=== PATIENT | female | born 1980 | race Caucasian/White ===

== ENCOUNTER → 2020-05-25 18:07 | Outpatient (CLI) | payer OTHER, SELFPAY ==
[2020-05-25 18:22] LABS: Chloride 102 mmol/L (98-107); Potassium 4.1 mmoL/L (3.5-5.1); Sodium 139 mmol/L (136-145)
[2020-05-25 18:24] LABS: Alanine Aminotransferase 30 U/L (12-78); Aspartate Amino Transferase 30 U/L (14-36); Blood Urea Nitrogen 20 mg/dl (7-17); Estimated Glomerular Filt Rate 79 ml/min (>60); GFR (African American) 95 ML/MIN (>60)
[2020-05-25 18:25] LABS: Albumin Level 4.7 g/dl (3.5-5.0); Albumin/Globulin Ratio 1.6 (1.1-1.8); Alkaline Phosphatase 75 U/L (38-126); Anion Gap 10.1 mEq/L (5-15); Bilirubin,Total 0.4 mg/dl (0.2-1.3); Calcium 10.3 mg/dl (8.4-10.2); Carbon Dioxide 31 mmol/L (22.0-30.0); Chol/HDL Ratio 3.7 (1-3.5); Cholesterol 241 mg/dl (140-200); Glucose 97 mg/dl (74-100); HDL Cholesterol 65 mg/dl (40-60); Total Protein,Serum 7.7 g/dl (6.3-8.2); Triglycerides 211 mg/dl (30-150); VLDL Cholesterol 42 mg/dL (0-40)
[2020-05-25 18:36] LABS: Direct LDL Cholesterol 133.43 mg/dL (100-129)
[2020-05-25 18:42] LABS: T4 (Thyroxine) 8.6 ug/dl (5.53-11.0)
[2020-05-25 18:55] LABS: Thyroid Stimulating Hormone 1.09 uIU/mL (0.465-4.68)
== END ==
PROVIDERS: Visit Provider Family Medicine
DX: M79.7 Fibromyalgia (principal); M54.2 Cervicalgia
CPT/HCPCS: 80053; 80061; 84436; 84443

== ENCOUNTER → 2022-03-06 11:42 | Outpatient (CLI) | payer BC, SELFPAY ==
--- NOTE | 2022-03-06 11:51 | XR_ITS ---
FINAL REPORT CLINICAL HISTORY: back pain FINDINGS: LUMBAR SPINE Three views were obtained. There is no acute fracture. There is no malalignment. There are mild degenerative changes with small osteophytes. There is no soft tissue abnormality. IMPRESSION: Mild degenerative change with no acute bony abnormality. Reviewed, Interpreted and Dictated by Eugenio Oconnor III, MD Transcribed by Melly Beckford Authenticated and [facility]
--- NOTE | 2022-03-06 11:51 | XR_ITS ---
FINAL REPORT CLINICAL HISTORY: ankle pain FINDINGS: RIGHT ANKLE Three views of the right ankle were obtained. There is no acute fracture or dislocation. There are mild degenerative changes.. There is soft tissue swelling.. IMPRESSION: Soft tissue swelling with no acute bony abnormality. Mild degenerative change. Reviewed, Interpreted and Dictated by Eugenio Oconnor III, MD Transcribed by Melly Beckford Authenticated and [facility]
== END ==
PROVIDERS: PCP Family Medicine; Visit Provider Family Medicine
DX: G89.29 Other chronic pain (principal); M54.9 Dorsalgia, unspecified; M54.50 Low back pain, unspecified; M25.571 Pain in right ankle and joints of right foot
CPT/HCPCS: 72100; 73610

== ENCOUNTER → 2023-01-15 23:53 | Outpatient (CLI) | payer BC, SELFPAY ==
[2023-01-15 18:25] LABS: Basophils % 0.7 % (0.1-2.0); Eosinophils # 0.1 K/mm3 (0.0-0.4); Eosinophils % 0.8 % (0.1-12.0); Hematocrit 41.4 % (37.0-47.0); Hemoglobin 13.4 g/dL (12.2-16.2); Lymphocytes % 33.3 % (10-50); Mean Corpuscular HGB Conc 32.3 g/dL (31.8-35.4); Mean Corpuscular Hemoglobin 24.4 pg (27.0-31.2); Mean Corpuscular Volume 75.5 fl (81-99); Mean Platelet Volume 7.7 fl (7.4-10.4); Monocytes # 0.3 K/mm3 (0.1-1.0); Monocytes % 5.2 % (1.7-9.3); Neutrophils # 3.6 K/mm3 (1.8-7.8); Platelet Count 312 K/mm3 (142-424); Red Blood Count 5.48 M/mm3 (4.20-5.40); Red Cell Distribution Width 15.8 % (11.5-17.5)
[2023-01-15 18:53] LABS: Alanine Aminotransferase 33 U/L (12-78); Albumin Level 4.5 g/dl (3.5-5.0); Albumin/Globulin Ratio 1.6 (1.1-1.8); Alkaline Phosphatase 76 U/L (38-126); Anion Gap 13.1 mEq/L (5-15); Aspartate Amino Transferase 30 U/L (14-36); Blood Urea Nitrogen 18 mg/dl (7-17); Calcium 9.6 mg/dl (8.4-10.2); Carbon Dioxide 30 mmol/L (22.0-30.0); Chloride 101 mmol/L (98-107); Chol/HDL Ratio 3.9 (1-3.5); Cholesterol 243 mg/dl (140-200); Estimated Glomerular Filt Rate 60 ml/min (>60); GFR (African American) 73 ML/MIN (>60); Globulin 2.9 g/dL (1.3-3.2); Glucose 140 mg/dl (74-100); HDL Cholesterol 62 mg/dl (40-60); Potassium 4.1 mmoL/L (3.5-5.1); Sodium 140 mmol/L (136-145); Total Protein,Serum 7.4 g/dl (6.3-8.2); Triglycerides 255 mg/dl (30-150); VLDL Cholesterol 51 mg/dL (0-40)
[2023-01-15 18:56] LABS: Bilirubin,Total < 0.1 mg/dl (0.2-1.3)
[2023-01-15 19:02] LABS: Hemoglobin A1C 5.7 % (4.0-6.0)
[2023-01-15 19:04] LABS: Direct LDL Cholesterol 127.88 mg/dL (100-129)
[2023-01-15 19:24] LABS: Thyroid Stimulating Hormone 1.47 uIU/mL (0.465-4.68)
== END ==
PROVIDERS: PCP Family Medicine; Visit Provider Family Medicine
DX: E66.9 Obesity, unspecified (principal); Z68.42 Body mass index [BMI] 45.0-49.9, adult
CPT/HCPCS: 80053; 80061; 83036; 84443; 85025

== ENCOUNTER → 2023-04-30 23:44 | Outpatient (CLI) | payer BC, SELFPAY ==
[2023-04-30 18:12] LABS: Coronavirus 19, PCR Not Detected (NotDetected); Influenza A, PCR Not Detected (NotDetected); Influenza B, PCR Not Detected (NotDetected)
== END ==
LOC: LAB.DROPOF 23:44
PROVIDERS: PCP Family Medicine; Visit Provider Nurse Practitioner
DX: J06.9 Acute upper respiratory infection, unspecified (principal); R09.89 Other specified symptoms and signs involving the circulatory and respiratory systems; R05.9 Cough, unspecified; J02.9 Acute pharyngitis, unspecified
CPT/HCPCS: 87636

== ENCOUNTER 2023-07-17 20:57 | Emergency (ER) | payer BC, SELFPAY ==
[2023-07-17 21:12] VITALS: BP 139/92; PULSE 92; RESP 18; TEMP 36.8; O2SAT 96; BMI 27.0
--- NOTE | 2023-07-17 21:30 | ED_ITS ---
Discharge Plan Disposition Patient Disposition: Home, Self-Care Prescriptions Prescriptions: New Eliquis DVT-PE Treat 30D Start 5 mg (74 tabs) tablets,dose pack 5 mg PO BID Qty: 74 0RF Eliquis 5 mg tablet 5 mg PO BID Qty: 60 2RF No Action tizanidine 4 mg tablet 4 mg PO Q8H PRN (Reason: muscle spasticity) Qty: 60 5RF cefdinir 300 mg capsule 300 mg PO BID Qty: 20 0RF [id number]-npmyyqxpf-NS [Bromfed DM] 2-30-10 mg/5 mL syrup 5 ml PO Q4-6H PRN (Reason: cold symptoms) Qty: 240 0RF fluticasone propionate 50 mcg/actuation spray,suspension 1 spray intranasal DAILY Qty: 16 2RF Rx Instructions: administer into each nostril albuterol sulfate 90 mcg/actuation HFA aerosol inhaler 2 puff inhalation Q4-6H PRN (Reason: shortness of breath or wheezing) Qty: 8.5 0RF fluoxetine [Prozac] 40 mg capsule 40 mg PO DAILY Qty: 90 3RF buspirone 15 mg tablet 15 mg PO TID PRN (Reason: anxiety) Qty: 90 3RF naproxen [Naprosyn] 500 mg tablet 500 mg PO BID PRN (Reason: pain) Qty: 60 2RF Wegovy 1 mg/0.5 mL pen injector 1 mg SQ WEEKLY Qty: 2 1RF Referrals Follow up/Referrals: Greg Cronin MD [Primary Care Provider] - See instructions Activity Restrictions/Add. Instructions Additional Instructions/Restrictions: Take 2 pills (10 mg) of Eliquis 2 times a day for 7 days. Take 1 pill (5 mg) twice daily for the remainder of the 3 months. Follow-up with your surgeon and your family doctor regarding this visit to the emergency department. If you have any worsening of your condition or any other concerning signs or symptoms, return to the emergency department or your primary care doctor for further evaluation. Clinical Impressions Clinical Impression: Acute deep vein thrombosis (DVT) of right upper extremity Discharge ED Provider: Osvaldo Gay General Adult [facility] General Chief complaint: Extremity Problem,Nontraumatic Stated complaint: Right arm swollen from IV put in for surgery Time Seen by Provider: 07/17/23 21:00 Mode of Arrival: Ambulatory Source of Information: Patient Limitations: No Limitations Description of Symptoms (Recalled from ER Triage Doc. by RN): Patient states she had surgery Thursday at [facility], they removed the IV on Thursday and she started noticing swelling, brusing and tenderness yesterday History of Present Illness HPI narrative: 43-year-old female with recent bariatric surgery presenting with right upper extremity swelling. Patient states that she just got to the hospital for this bariatric surgery and was receiving multiple medications in her right upper extremity veins that were causing irritation. Yesterday she started having swelling in her arm. She contacted her surgeon and they told her to put it above her head and put ice packs on it. Has been getting worse despite all of this. Came to the emergency department for further evaluation. Related Data Previous Rx's Medication Instructions Recorded tizanidine 4 mg tablet 4 mg PO Q8H PRN muscle spasticity 01/15/23 #60 tabs buspirone 15 mg tablet 15 mg PO TID PRN anxiety #90 tabs 01/16/23 fluoxetine 40 mg capsule (Prozac) 40 mg PO DAILY #90 caps 01/16/23 naproxen 500 mg tablet (Naprosyn) 500 mg PO BID PRN pain #60 tabs 01/16/23 albuterol sulfate 90 mcg/actuation 2 puff inhalation Q4-6H PRN 03/18/23 aerosol inhaler shortness of breath or wheezing #8.5 grams fktknbfbnckleqv-dmyrtenxigtkwys-YI 5 ml PO Q4-6H PRN cold symptoms 04/30/23 2 mg-30 mg-10 mg/5 mL oral syrup #240 mL (Bromfed DM) cefdinir 300 mg capsule 300 mg PO BID #20 caps 04/30/23 fluticasone propionate 50 1 spray intranasal DAILY #16 grams 04/30/23 mcg/actuation nasal spray,suspension semaglutide (weight loss) 1 mg/0.5 1 mg (0.5 mL) SQ WEEKLY #2 mL 06/02/23 mL subcutaneous pen injector (Wegovy) apixaban 5 mg (74 tabs) tablets in 5 mg PO BID #74 tabs 07/17/23 a dose pack (Eliquis DVT-PE Treat 30D Start) apixaban 5 mg tablet (Eliquis) 5 mg PO BID #60 tabs 07/17/23 Allergies Allergy/AdvReac Type Severity Reaction Status Date / Time acetaminophen [From Percocet] AdvReac Unknown Verified 05/28/23 09:08 oxycodone [From Percocet] AdvReac Unknown Verified 05/28/23 09:08 [facility] Disclaimer: The information contained in this section may have been updated after the patient was seen, as this information can be updated by other users. Social History Smoking Status: Never smoker alcohol intake: never substance use type: denies use current occupational status: disabled Travel in the last 8 weeks: None ROS Obtained: Yes All systems reviewed & no additional complaints except as documented Physical Exam General General appearance: alert and in no apparent distress Head Head exam: atraumatic and normocephalic Eye Eye exam: Present normal appearance, PERRL and EOMI ENT ENT exam: Present mucous membranes moist Neck Neck exam: Present normal inspection, full ROM and trachea midline Respiratory Respiratory exam: Absent respiratory distress, wheezes, stridor, accessory muscle use or prolonged expiratory phase Cardiovascular Cardiovascular exam: Present normal rhythm Abdominal Exam Abdominal exam: Present soft; Absent distention, tenderness, guarding, rebound or rigidity Extremities Exam Extremities exam: Present other (Tenderness and palpable cord right upper extremity and anatomic location of basilic vein); Absent edema Neurological Exam Neurological exam: Present alert, oriented X3, CN II-XII intact and normal gait; Absent motor sensory deficit Skin Skin exam: Present warm and dry; Absent diaphoresis or erythema Medical Decision Making Medical Records Medical records reviewed: Yes I reviewed the patient's medical records. [place] Inquiry Pt receiving controlled substance: No [place] was queried for this patient: No Vital Signs: 07/17/23 21:12 07/17/23 21:37 Temperature 98.3 F 98.3 F Temperature Source Oral Oral Pulse Rate 87 Pulse Rate [Left Radial] 92 H Respiratory Rate 18 18 Blood Pressure 138/87 Blood Pressure [Right Arm] 139/92 H Blood Pressure Mean [Right Arm] 107 02 Sat by Pulse Oximetry 96 Oxygen Delivery Method Room Air Orders (Tests/Meds): ED MEDICATIONS Discontinued Medications Generic Name Dose Route Start Last Admin Trade Name Freq PRN Reason Stop Dose Admin Enoxaparin Sodium 95 mg 07/17/23 21:30 07/17/23 21:34 Enoxaparin 100mg/Ml Syringe 1.5 mg/kg (95 mg) 07/17/23 21:31 95 mg SQ Administration ONCE ONE ORDERS Category Date Time Status POCUS Point of Care (ER Only) Stat Exams 07/17/23 21:11 Completed Medical Decision Narrative: 43-year-old female with recent bariatric surgery presenting with right upper extremity swelling. Patient states that she just got to the hospital for this bariatric surgery and was receiving multiple medications in her right upper extremity veins that were causing irritation. Yesterday she started having swelling in her arm. She contacted her surgeon and they told her to put it above her head and put ice packs on it. Has been getting worse despite all of this. Came to the emergency department for further evaluation. History obtaine d with patient. On physical exam, patient has palpable cord, tenderness, erythema, along basilic vein. Differential includes cellulitis, phlebitis, DVT, among others. Bedside ultrasound performed, patient does have DVT of the right upper extremity extending from proximal ulnar vein into basilic vein. Patient nontachycardic, saturating appropriately on room air. Patient was given initial dose of Lovenox 1.5 Mg per KG. Discharged with Eliquis. Because patient at baseline without signs or symptoms of clinical decompensation, deemed appropriate for discharge. Results were relayed to patient who voiced understanding and were agreeable to outpatient management and follow up. At the time of discharge the patient was hemodynamically stable, tolerating PO, and mobilizing appropriately. Procedures Limited Ultrasound Indication:: Limited DVT ultrasound Indication: Limited compression ultrasonography of the right upper extremity was performed to evaluate for non-compressibility of the deep veins in the patient. The ultrasound was performed with the following indications, as noted in the H&P: Right upper extremity swelling Identified structures: RIGHT or LEFT or BILATERAL ulnar vein, radial vein, cephalic vein, basilic vein, axillary vein. Findings: Upper extremity: Right UV noncompressible, hyperechoic Right RV: Good compressibility Right Cephalic vein: Good compressibility Right Basilic vein: Noncompressible, hyperechoic Right Axillary vein: Good compressibility Impression: Right upper extremity DVT Images were saved to permanent archive The study was technically adequate CPT: 99326-90-MB 25896-26-MF 24899-56 (complete bilateral study) This study was performed by me, and I personally interpreted all images/videos. Based on my clinical judgement, these images were adequate and did not necessitate further imaging. Critical Care Critical Care Time Critical Care Time: No
[2023-07-17] MEDS: ENOXAPARIN 100MG/ML SYRINGE 95 MG SQ (21:34)
[2023-07-17 21:37] VITALS: BP 138/87; PULSE 87; RESP 18; TEMP 36.8; O2SAT 96
== END 2023-07-17 21:37 | disposition home or self-care (01) ==
PROVIDERS: Emergency Provider Emergency Medicine; PCP Family Medicine
DX: I82.621 Acute embolism and thrombosis of deep veins of right upper extremity (principal)
CPT/HCPCS: 99284

== ENCOUNTER 2024-09-30 09:34 | Outpatient (CLI) | payer BC, SELFPAY ==
[2024-09-30 19:50] LABS: Chol/HDL Ratio 2.2 (1-3.5); Cholesterol 165 mg/dl (140-200); HDL Cholesterol 75 mg/dl (40-60); Triglycerides 71 mg/dl (30-150); VLDL Cholesterol 14 mg/dL (0-40)
[2024-09-30 20:00] LABS: Direct LDL Cholesterol 66.19 mg/dL (100-129)
--- OUTSIDE RECORDS SUMMARY | 2024-10-03 09:36 | XMS_ITS | Data Portability ---
Author Organization [facility] [place] [facility] ADMIN Address [address] [place] [id number] Care Team Providers Care Mental Health Director Name Role Phone MIRTHA VAUGHN Primary Care Provider Assessment Encounter Date Assessment Date Assessment LastModified by Organization Details LastModified Time 02/05/2024 02/05/2024 A total of 20 minutes was spent with the pt today. Recommendations: 1. Increase calories to 1000 kcal per day and gradually increase to 1200 2. Increase protein to 85+ grams per day 3. Increase fluid intake to 64+ fluid oz per day 4. Add in strength training exercises 3x/week to help increase muscle mass 5. Choose more whole food protein sources vs. drinking 2-3 shakes per day 6. Aim for 1 protein shake per day, 2 meals (protein/veggie/fi aicha), and 3-4 protein focused snacks in between 7. Download Compiere mikal to start tracking meals 8. F/U with RD in 3 months Pt doing well overall. Addressed concerns today. Pt was reassured at today's visit. Pt verbally agreed to recommendations and goals. Denied further questions/concerns . RDN will monitor weight loss, labs, meds, and lifestyle modifications. Will f/up as scheduled or PRN. [email or web address] Not available 02/05/2024 10:57:29 Plan of Treatment Reminders Order Date Submit Date Provider Last Modified By Organization Details Last Modified Time Details Appointments None recorde d. Lab vitamin D, 25-hydr oxy, total, serum 2023 024 [place], [address], [address], [place], [address], 4 18:36:17 prealbu min, serum 2023 024 [place] [facility], [address], [address], [place], [address], 4 18:36:19 thiamin e, QN, blood 2023 024 [place] [facility], [address], [address], [place], [address], 4 18:36:17 methylm alonate , QN, serum or plasma 2023 024 [place] [facility], [address], [address], [place], [address], 4 18:36:18 copper, serum or plasma 2023 024 [place] [facility], [address], [address], [place], [address], 4 18:36:18 dennisiu mvaishnavi ative, blood 2023 024 [place] [facility], [address], [address], [place], [address], 4 18:36:20 zinc, serum or plasma 2023 024 [place], [address], [address], [place], [address], 4 18:36:19 CBC w/ auto diff 2023 024 [place], [address], [address], [place], [address], 4 18:36:14 CMP, serum or plasma 2023 024 [place] [facility], [address], [address], [place], [address], 4 18:36:15 iron + TIBC + ferriti n, serum 2023 024 [place] [facility], [address], [address], [place], [address], 4 18:36:13 folate, serum 2023 024 [place] [facility], [address], [address], [place], [address], 4 18:36:16 vitamin E, serum 2023 024 [place] [facility], [address], [address], [place], [address], 4 18:36:15 vitamin A (retino l), serum 2023 024 [facility], [address], [address], [place], [address], 4 18:36:16 TSH + free T4, serum 2023 024 [place], [address], [address], [place], [address], 4 18:36:14 CBC w/ auto diff 2023 024 [facility] (Registration), [address], [place], [address], 4 17:58:49 prothro mbin (factor II) [id number] mutatio n, blood 2023 024 [email or web address] [facility] (Registration), [address], [place], [address], 4 11:36:09 factor VIII activit y, plasma 2023 024 [email or web address] [facility] (Registration), [address] , [place], [address], 4 08:57:56 protein S activit y, plasma 2023 024 [email or web address] 6 [facility] (Registration), [address] , [place], [address], 4 08:57:56 CMP, serum or plasma 2023 024 [facility] (Registration), [address] , [place], [address], 4 18:30:47 CBC w/ auto diff 2023 024 [place] [facility], [address], [address], [place], [address], 4 16:25:11 CMP, serum or plasma 2023 024 [place], [address], [address], [place], [address], 4 16:51:28 prealbu min, serum 2023 024 [place] [facility], [address], [address], [place], [address], 4 04:37:26 thiamin e, QN, blood 2023 024 [place], [address], [address], [place], [address], 4 04:37:24 iron + TIBC + ferriti n, serum 2023 024 [place], [address], [address], [place], [address], 4 04:37:17 folate, serum 2023 024 [place], [address], [address], [place], [address], 4 04:37:22 vitamin D, 25-hydr oxy, total, serum 2023 024 [place], [address], [address], [place], [address], 4 04:37:24 vitamin E, serum 2023 024 [place] [facility], [address], [address], [place], [address], 4 04:37:21 vitamin A (retino l), serum 2023 024 [place], [address], [address], [place], [address], 4 04:37:23 TSH + free T4, serum 2023 024 [place] [facility], [address], [address], [place], [address], 4 04:37:18 methylm alonate , QN, serum or plasma 2023 024 [facility], [address], [address], [place], [address], 4 04:37:25 magnesi um, blood 2023 024 [email or web address] [facility] (Registration), [address], [place], [address], 4 13:33:41 phospho edmund, serum or plasma 2023 024 [email or web address] [facility] (Registration), [address], [place], [address], 4 13:33:42 Referral gastroe nterolo gist referra l 2023 024 [email or web address] [facility], [address], [address], [place], [address], 4 09:15:52 Procedures None recorde d. Surgeries None recorde d. Imaging None recorde d. Medication Orders None recorde d. Patient TargetsNo targets recorded. Patient InstructionsNo instructions recorded. 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 4 Not Available [facility] ([facility]) [address], [place], [address], 08/12/2023 16:25:11 08/12/19 24 08/12/2023 CBC AUTO W DIFF HGB 12.0 gm/dL 12.5-1 6.0 low Not Available [facility] ([facility]) [address], [place], [address], 08/12/2023 16:25:11 08/12/19 24 08/12/2023 CBC AUTO W DIFF HCT 37.4 % 37.0-4 7.0 Not Available [facility] ([facility]) [address], [place], [address], 08/12/2023 16:25:11 08/12/19 24 08/12/2023 CBC AUTO W DIFF MCV 78.7 fL 78-100 Not Available [facility] ([facility]) [address] , [place], [address], 08/12/2023 16:25:11 08/12/19 24 08/12/2023 CBC AUTO W DIFF MCH 25.3 pg 27-31 low Not Available [facility] ([facility]) [address] , [place], [address], 08/12/2023 16:25:11 08/12/19 24 08/12/2023 CBC AUTO W DIFF MCHC 32.1 g/dL 32-36 Not Available [facility] ([facility]) [address] , [place], [address], 08/12/2023 16:25:11 08/12/19 24 08/12/2023 CBC AUTO W DIFF RDW 15.9 % 11.5-1 4.0 high Not Available [facility] ([facility]) [address] , [place], [address], 08/12/2023 16:25:11 08/12/19 24 08/12/2023 CBC AUTO W DIFF platelet count 201 K/uL 150-45 0 Not Available [facility] ([facility]) [address] , [place], [address], 08/12/2023 16:25:11 08/12/19 24 08/12/2023 CBC AUTO W DIFF MPV 10.1 fL 6-9.5 high Not Available [facility] ([facility]) [address] , [place], [address], 08/12/2023 16:25:11 08/12/19 24 08/12/2023 CBC AUTO W DIFF neutrophil% 44.7 % 43-65 Not Available [facility] ([facility]) [address] [place], [address], 08/12/2023 16:25:11 08/12/19 24 08/12/2023 CBC AUTO W DIFF lymphocyte% 46.5 % 20.5-4 5.5 high Not Available [facility] ([facility]) [address] [place], [address], 08/12/2023 16:25:11 08/12/19 24 08/12/2023 CBC AUTO W DIFF monocyte% 6.5 % 5.5-11 .7 Not Available [facility] ([facility]) [address] [place], [address], 08/12/2023 16:25:11 08/12/19 24 08/12/2023 CBC AUTO W DIFF eosinophil% 1.7 % 0.9-2. 9 Not Available [facility] ([facility]) [address] [place], [address], 08/12/2023 16:25:11 08/12/19 24 08/12/2023 CBC AUTO W DIFF basophil% 0.4 % 0.2-1. 0 Not Available [facility] ([facility]) [address] [place], [address], 08/12/2023 16:25:11 08/12/19 24 08/12/2023 CBC AUTO W DIFF immature granulocytes % 0.2 % 0.0-0. 8 Not Available [facility] ([facility]) [address] [place], [address], 08/12/2023 16:25:11 08/12/19 24 08/12/2023 CBC AUTO W DIFF nucleated red blood cells % 0.0 % Not Available [facility] ([facility]) [address] [place], [address], 08/12/2023 16:25:11 08/12/19 24 08/12/2023 CBC AUTO W DIFF neutrophil# 2.1 K/uL 2.2-4. 8 low Not Available [facility] ([facility]) [address], [place], [address], 08/12/2023 16:25:11 08/12/19 24 08/12/2023 CBC AUTO W DIFF lymphocyte# 2.2 cell/ mcL 1.3-2. 9 Not Available [facility] ([facility]) [address], [place], [address], 08/12/2023 16:25:11 08/12/19 24 08/12/2023 CBC AUTO W DIFF monocyte# 0.3 cell/ mcL 0.3-0. 8 Not Available [facility] ([facility]) [address] [facility], [place], [address], 08/12/2023 16:25:11 08/12/19 24 08/12/2023 CBC AUTO W DIFF eosinophil# 0.1 cell/ mcL 0-0.2 Not Available [facility] ([facility]) [address] [facility], [place], [address], 08/12/2023 16:25:11 08/12/19 24 08/12/2023 CBC AUTO W DIFF basophil# 0.0 cell/ mcL 0.0-1. 0 Not Available [facility] ([facility]) [address] [place], [address], 08/12/2023 16:25:11 08/12/19 24 08/12/2023 CBC AUTO W DIFF immature gramulocytes # 0.01 K/uL Not Available [facility] ([facility]) [address] [place], [address], 08/12/2023 16:25:11 08/12/19 24 08/12/2023 CBC AUTO W DIFF nucleated red blood cells # 0.00 K/uL Not Available [facility] ([facility]) [address], [place], [address], 08/12/2023 16:25:11 08/12/19 24 08/12/2023 CBC AUTO W DIFF manual differential NO Not Available [facility] ([facility]) [address], [place], [address], 08/12/2023 16:25:11 08/12/19 24 08/12/2023 PT (PROT HROMB IN TIME) W INR prothrombin time 10.1 secon ds 9.3-11 .4 Not Available [facility] ([facility]) [address] , [place], [address], 08/12/2023 16:48:05 08/12/19 24 08/12/2023 PT (PROT HROMB IN TIME) W INR INR 1.0 ratio 0.97-1 .05 INR is inten ded to be used ONLY for patie nts on stabl e oral antic oagul ant thera py. Thera peuti c Range s: 2.0-3 .0 Usual Thera peuti c Range 2.5-3 .5 For patie nts with histo ry of Multi ple Deep Vein Throm bus or Mecha nical Heart Valve s Not Available [facility] ([facility]) [address] , [place], [address], 08/12/2023 16:48:05 08/12/19 24 08/12/2023 COMP METAB OLIC PANEL sodium 145 mmol/ L 136-14 5 Not Available [facility] ([facility]) [address] , [place], [address], 08/12/2023 16:51:27 08/12/19 24 08/12/2023 COMP METAB OLIC PANEL potassium 3.6 mmol/ L 3.6-5. 0 Not Available [facility] ([facility]) [address] , [place], [address], 08/12/2023 16:51:27 08/12/19 24 08/12/2023 COMP METAB OLIC PANEL chloride 107 mmol/ L 98-107 Not Available [facility] ([facility]) [address], [place], [address], 08/12/2023 16:51:27 08/12/19 24 08/12/2023 COMP METAB OLIC PANEL carbon dioxide 29.2 mmol/ L 21.0-3 2.0 Not Available [facility] ([facility]) [address], [place], [address], 08/12/2023 16:51:27 08/12/19 24 08/12/2023 COMP METAB OLIC PANEL anion gap 12.4 Not Available [facility] ([facility]) [address] , [place], [address], 08/12/2023 16:51:27 08/12/19 24 08/12/2023 COMP METAB OLIC PANEL glucose 85 mg/dL 70-120 Not Available [facility] ([facility]) [address] , [place], [address], 08/12/2023 16:51:27 08/12/19 24 08/12/2023 COMP METAB OLIC PANEL BUN 16 mg/dL 7-18 Not Available [facility] ([facility]) [address] , [place], [address], 08/12/2023 16:51:27 08/12/19 24 08/12/2023 COMP METAB OLIC PANEL creatinine 0.8 mg/dL 0.6-1. 3 Not Available [facility] ([facility]) [address] [place], [address], 08/12/2023 16:51:27 08/12/19 24 08/12/2023 COMP METAB OLIC PANEL glomerular filtration rate >60 mlper min 60- Not Available [facility] ([facility]) [address] [place], [address], 08/12/2023 16:51:27 08/12/19 24 08/12/2023 COMP METAB OLIC PANEL total protein 6.7 g/dL 6.4-8. 2 Not Available [facility] ([facility]) [address] , [place], [address], 08/12/2023 16:51:27 08/12/19 24 08/12/2023 COMP METAB OLIC PANEL albumin 4.1 g/dL 3.4-5. 0 Not Available [facility] ([facility]) [address], [place], [address], 08/12/2023 16:51:27 08/12/19 24 08/12/2023 COMP METAB OLIC PANEL globulin 2.6 Not Available [facility] ([facility]) [address], [place], [address], 08/12/2023 16:51:27 08/12/19 24 08/12/2023 COMP METAB OLIC PANEL alb/glob ratio 1.6 0.7-2 Not Available [facility] ([facility]) [address], [place], [address], 08/12/2023 16:51:27 08/12/19 24 08/12/2023 COMP METAB OLIC PANEL calcium 9.1 mg/dL 8.5-10 .5 Not Available [facility] ([facility]) [address] , [place], [address], 08/12/2023 16:51:27 08/12/19 24 08/12/2023 COMP METAB OLIC PANEL bilirubin total 0.30 mg/dL 0.10-1 .00 Not Available [facility] ([facility]) [address], [place], [address], 08/12/2023 16:51:27 08/12/19 24 08/12/2023 COMP METAB OLIC PANEL AST (SGOT) 23 U/L 0-37 Not Available [facility] ([facility]) [address], [place], [address], 08/12/2023 16:51:27 08/12/19 24 08/12/2023 COMP METAB OLIC PANEL ALT (SGPT) 63 U/L 0-65 Not Available [facility] ([facility]) [address], [place], [address], 08/12/2023 16:51:27 08/12/19 24 08/12/2023 COMP METAB OLIC PANEL alk phosphatase 78 U/L 46-116 Not Available [facility] ([facility]) [address] [facility], [place], [address], 08/12/2023 16:51:27 08/12/19 24 08/14/2023 FACTO R VII (7) ACTIV ITY factor VII (7) activity 148 % 51-186 Perfo rmed at: [facility] [address] [place] [address] Lab Direc tor: Fabiola contreras MD, Phone : [phone] Not Available [facility] ([facility]) [address] [place], [address], 08/14/2023 06:13:35 08/12/19 24 08/14/2023 PROTE IN C FUNTI ONAL protein C functional 151 % 73-180 Perfo rmed at: [facility] [address] [place] [address] Lab Direc tor: Fabiola contreras MD, Phone : [phone] Not Available [facility] ([facility]) [address] [place], [address], 08/14/2023 13:12:25 08/12/19 24 08/14/2023 ANTIT HROMB IN 3 ACTIV ITY antithrombin activity 131 % 75-135 Direc t Xa inhib itor antic oagul ants such as rivar oxaba n, apixa ban and edoxa ban will lead to spuri ously eleva ellen antit hromb in activ ity level s possi robert maski ng a defic iency . Not Available [facility] ([facility]) [address], [place], [address], 08/14/2023 15:11:29 08/12/19 24 08/14/2023 ANTIT HROMB IN 3 ACTIV ITY antithrobmin antigen 112 % 72-124 This test was devel oped and its perfo rmanc e lindsay cteri stics deter mined by [facility]. It has not been clear ed or appro zane by the Food and Drug Admin istra tion. Perfo rmed at: - [facility] [address] [place] [address] [facility] , [place] [address] Lab Direc tor: Fabiola contreras MD, Phone : [phone] Not Available [facility] ([facility]) [address] [facility], [place], [address], 08/14/2023 15:11:29 08/12/19 24 08/14/2023 PROTE IN S-FUN CTION AL(AC TIVIT Y) protein S, functional 45 % 63-140 low A defic iency of prote in S (PS), eithe r conge nital or acqui red, incre ases the risk of throm boemb olism . PS activ ity level s may be false ly low in indiv idual s with APCR/ Facto r V Leide n. Consi nash perfo rming free prote in S antig en in those with APCR/ Facto r V Leide n befor e makin g a diagn osis of prote in S defic iency . Acqui red PS defic iency is more commo n than conge nital defic iency . PS value s decre ase with juan l pregn jovanna, and are also depen dent on age, sex and hormo ne statu s. PS value s tend to be lower in a young er age group and lower in women than in men. Level s may be decre ased in pre-m enopa usal women on oral contr acept shun agent s. Acqui red defic iency can occur as a resul t of vitam in K defic iency or antag onism , sever e hepat ic disor ders, (hepa titis , cirrh osis, etc.) , nephr otic syndr ome, infla mmato ry bowel disea se, certa in chemo thera peuti c agent s, L-asp aragi nse thera py, sepsi s, disse minat ed intra vascu lar coagu latio n (DIC) and acute throm bosis . Level s may be decre ased in patie nts with polyc ythem ia vera, sickl e cell disea se and essen tial throm bocyt hemia . Repea t evalu ation on a new plasm a sampl e to confi rm or refut e this resul t shoul d be consi dered , after rulin g out acqui red cause s, depen mellissa on the clini abena scena lucas. Perfo rmed at: [facility] [place] [address] [facility] , [place] [address] Lab Direc tor: Fabiola contreras MD, Phone : [phone] Not Available [facility] ([facility]) [address] , [place], [address], 08/14/2023 15:11:31 08/12/19 24 08/13/2023 FE+TI BC+FE R iron bind.cap.(TI BC) 384 ug/dL 250-45 0 Not Available [facility] ([facility]) [address] [facility], [place], [address], 08/18/2023 04:37:17 08/12/19 24 08/13/2023 FE+TI BC+FE R UIBC 344 ug/dL 131-42 5 Not Available [facility] ([facility]) [address] [facility], [place], [address], 08/18/2023 04:37:17 08/12/19 24 08/13/2023 FE+TI BC+FE R iron 40 ug/dL 27-159 Not Available [facility] ([facility]) [address] [place], [address], 08/18/2023 04:37:17 08/12/19 24 08/13/2023 FE+TI BC+FE R iron saturation 10 % 15-55 below low normal Not Available [facility] ([facility]) [address] [facility], [place], [address], 08/18/2023 04:37:17 08/12/19 24 08/13/2023 FE+TI BC+FE R ferritin 45 NG/mL 15-150 Not Available [facility] ([facility]) [address] [facility], [place], [address], 08/18/2023 04:37:17 08/12/19 24 08/13/2023 TSH+F REE T4 TSH 1.210 uIU/m L 0.450- 4.500 Not Available [facility] ([facility]) [address] [place], [address], 08/18/2023 04:37:18 08/12/19 24 08/13/2023 TSH+F REE T4 T4,free(dire ct) 1.01 NG/dL 0.82-1 .77 Not Available [facility] ([facility]) [address] [place], [address], 08/18/2023 04:37:18 08/12/19 24 08/13/2023 CBC WITH DIFFE RENTI AL/PL ATELE T WBC 4.2 x10e3 /uL 3.4-10 .8 Not Available [facility] ([facility]) [address] [place], [address], 08/18/2023 04:37:19 08/12/19 24 08/13/2023 CBC WITH DIFFE RENTI AL/PL ATELE T RBC 4.74 x10e6 /uL 3.77-5 .28 Not Available [facility] ([facility]) [address] [facility], [place], [address], 08/18/2023 04:37:19 08/12/19 24 08/13/2023 CBC WITH DIFFE RENTI AL/PL ATELE T hemoglobin 11.9 g/dL 11.1-1 5.9 Not Available [facility] ([facility]) [address] [facility], [place], [address], 08/18/2023 04:37:19 08/12/19 24 08/13/2023 CBC WITH DIFFE RENTI AL/PL ATELE T hematocrit 37.0 % 34.0-4 6.6 Not Available [facility] ([facility]) [address] [facility], [place], [address], 08/18/2023 04:37:19 08/12/19 24 08/13/2023 CBC WITH DIFFE RENTI AL/PL ATELE T MCV 78 fL 79-97 below low normal Not Available [facility] ([facility]) [address] [place], [address], 08/18/2023 04:37:19 08/12/19 24 08/13/2023 CBC WITH DIFFE RENTI AL/PL ATELE T MCH 25.1 pg 26.6-3 3.0 below low normal Not Available [facility] ([facility]) [address] [place], [address], 08/18/2023 04:37:19 08/12/19 24 08/13/2023 CBC WITH DIFFE RENTI AL/PL ATELE T MCHC 32.2 g/dL 31.5-3 5.7 Not Available [facility] ([facility]) [address] [place], [address], 08/18/2023 04:37:19 08/12/19 24 08/13/2023 CBC WITH DIFFE RENTI AL/PL ATELE T RDW 16.1 % 11.7-1 5.4 above high normal Not Available [facility] ([facility]) [address] [facility], [place], [address], 08/18/2023 04:37:19 08/12/19 24 08/13/2023 CBC WITH DIFFE RENTI AL/PL ATELE T platelets 201 x10e3 /uL 150-45 0 Not Available [facility] ([facility]) [address] [facility], [place], [address], 08/18/2023 04:37:19 08/12/19 24 08/13/2023 CBC WITH DIFFE RENTI AL/PL ATELE T neutrophils 48 % not estab. Not Available [facility] ([facility]) [address] [facility], [place], [address], 08/18/2023 04:37:19 08/12/19 24 08/13/2023 CBC WITH DIFFE RENTI AL/PL ATELE T lymphs 43 % not estab. Not Available [facility] ([facility]) [address] [facility], [place], [address], 08/18/2023 04:37:19 08/12/19 24 08/13/2023 CBC WITH DIFFE RENTI AL/PL ATELE T monocytes 6 % not estab. Not Available [facility] ([facility]) [address] [facility], [place], [address], 08/18/2023 04:37:19 08/12/19 24 08/13/2023 CBC WITH DIFFE RENTI AL/PL ATELE T eos 2 % not estab. Not Available [facility] ([facility]) [address] [facility], [place], [address], 08/18/2023 04:37:19 08/12/19 24 08/13/2023 CBC WITH DIFFE RENTI AL/PL ATELE T basos 1 % not estab. Not Available [facility] ([facility]) [address] [facility], [place], [address], 08/18/2023 04:37:19 08/12/19 24 08/13/2023 CBC WITH DIFFE RENTI AL/PL ATELE T immature cells SENIOR INFORMATION DEVELOPER Not Available [facility] ([facility]) [address] [facility], [place], [address], 08/18/2023 04:37:19 08/12/19 24 08/13/2023 CBC WITH DIFFE RENTI AL/PL ATELE T neutrophils (absolute) 2.0 x10e3 /uL 1.4-7. 0 Not Available [facility] ([facility]) [address] [place], [address], 08/18/2023 04:37:19 08/12/19 24 08/13/2023 CBC WITH DIFFE RENTI AL/PL ATELE T lymphs (absolute) 1.8 x10e3 /uL 0.7-3. 1 Not Available [facility] ([facility]) [address] [facility], [place], [address], 08/18/2023 04:37:19 08/12/19 24 08/13/2023 CBC WITH DIFFE RENTI AL/PL ATELE T monocytes(ab solute) 0.3 x10e3 /uL 0.1-0. 9 Not Available [facility] ([facility]) [address] [place], [address], 08/18/2023 04:37:19 08/12/19 24 08/13/2023 CBC WITH DIFFE RENTI AL/PL ATELE T eos (absolute) 0.1 x10e3 /uL 0.0-0. 4 Not Available [facility] ([facility]) [address] [place], [address], 08/18/2023 04:37:19 08/12/19 24 08/13/2023 CBC WITH DIFFE RENTI AL/PL ATELE T baso (absolute) 0.0 x10e3 /uL 0.0-0. 2 Not Available [facility] ([facility]) [address] [place], [address], 08/18/2023 04:37:19 08/12/19 24 08/13/2023 CBC WITH DIFFE RENTI AL/PL ATELE T immature granulocytes 0 % not estab. Not Available [facility] ([facility]) [address] [facility], [place], [address], 08/18/2023 04:37:19 08/12/19 24 08/13/2023 CBC WITH DIFFE RENTI AL/PL ATELE T immature grans (abs) 0.0 x10e3 /uL 0.0-0. 1 Not Available [facility] ([facility]) [address] [facility], [place], [address], 08/18/2023 04:37:19 08/12/19 24 08/13/2023 CBC WITH DIFFE RENTI AL/PL ATELE T NRBC SENIOR INFORMATION DEVELOPER Not Available [facility] ([facility]) [address] [facility], [place], [address], 08/18/2023 04:37:19 08/12/19 24 08/13/2023 CBC WITH DIFFE RENTI AL/PL ATELE T hematology comments: SENIOR INFORMATION DEVELOPER Not Available [facility] ([facility]) [address] [facility], [place], [address], 08/18/2023 04:37:19 08/12/19 24 08/13/2023 COMP. METAB OLIC PANEL (14) glucose 87 mg/dL 70-99 Not Available [facility] ([facility]) [address] [facility], [place], [address], 08/18/2023 04:37:20 08/12/19 24 08/13/2023 COMP. METAB OLIC PANEL (14) BUN 14 mg/dL 6-24 Not Available [facility] ([facility]) [address] [place], [address], 08/18/2023 04:37:20 08/12/19 24 08/13/2023 COMP. METAB OLIC PANEL (14) creatinine 0.73 mg/dL 0.57-1 .00 Not Available [facility] ([facility]) [address] [place], [address], 08/18/2023 04:37:20 08/12/19 24 08/13/2023 COMP. METAB OLIC PANEL (14) eGFR 103 mL/mi n/1.7 3 >59 Not Available [facility] ([facility]) [address] [facility], [place], [address], 08/18/2023 04:37:20 08/12/19 24 08/13/2023 COMP. METAB OLIC PANEL (14) BUN/creatini ne ratio 19 9-23 Not Available [facility] ([facility]) [address] [facility], [place], [address], 08/18/2023 04:37:20 08/12/19 24 08/13/2023 COMP. METAB OLIC PANEL (14) sodium 143 mmol/ L 134-14 4 Not Available [facility] ([facility]) [address] [place], [address], 08/18/2023 04:37:20 08/12/19 24 08/13/2023 COMP. METAB OLIC PANEL (14) potassium 3.9 mmol/ L 3.5-5. 2 Not Available [facility] ([facility]) [address] [place], [address], 08/18/2023 04:37:20 08/12/19 24 08/13/2023 COMP. METAB OLIC PANEL (14) chloride 107 mmol/ L 96-106 above high normal Not Available [facility] ([facility]) [address] [place], [address], 08/18/2023 04:37:20 08/12/19 24 08/13/2023 COMP. METAB OLIC PANEL (14) carbon dioxide, total 21 mmol/ L 20-29 Not Available [facility] ([facility]) [address] [facility] [place], [address], 08/18/2023 04:37:20 08/12/19 24 08/13/2023 COMP. METAB OLIC PANEL (14) calcium 9.2 mg/dL 8.7-10 .2 Not Available [facility] ([facility]) [address] [facility], [place], [address], 08/18/2023 04:37:20 08/12/19 24 08/13/2023 COMP. METAB OLIC PANEL (14) protein, total 6.2 g/dL 6.0-8. 5 Not Available [facility] ([facility]) [address] [facility] [place], [address], 08/18/2023 04:37:20 08/12/19 24 08/13/2023 COMP. METAB OLIC PANEL (14) albumin 4.4 g/dL 3.9-4. 9 Not Available [facility] ([facility]) [address] [facility] [place], [address], 08/18/2023 04:37:20 08/12/19 24 08/13/2023 COMP. METAB OLIC PANEL (14) globulin, total 1.8 g/dL 1.5-4. 5 Not Available [facility] ([facility]) [address] [facility] [place], [address], 08/18/2023 04:37:20 08/12/19 24 08/13/2023 COMP. METAB OLIC PANEL (14) A/G ratio 2.4 1.2-2. 2 above high normal Not Available [facility] ([facility]) [address] [facility] [place], [address], 08/18/2023 04:37:20 08/12/19 24 08/13/2023 COMP. METAB OLIC PANEL (14) bilirubin, total 0.2 mg/dL 0.0-1. 2 Not Available [facility] ([facility]) [address] [facility], [place], [address], 08/18/2023 04:37:20 08/12/19 24 08/13/2023 COMP. METAB OLIC PANEL (14) alkaline phosphatase 73 IU/L 44-121 Not Available [facility] ([facility]) [address] [facility] [place], [address], 08/18/2023 04:37:20 08/12/19 24 08/13/2023 COMP. METAB OLIC PANEL (14) AST (SGOT) 33 IU/L 0-40 Not Available [facility] ([facility]) [address] [facility] [place], [address], 08/18/2023 04:37:20 08/12/19 24 08/13/2023 COMP. METAB OLIC PANEL (14) ALT (SGPT) 49 IU/L 0-32 above high normal Not Available [facility] ([facility]) [address] [facility], [place], [address], 08/18/2023 04:37:20 08/12/19 24 08/15/2023 VITAM IN E vitamin E(alpha tocopherol) 8.3 mg/L 7.0-25 .1 Not Available [facility] ([facility]) [address] [facility] [place], [address], 08/18/2023 04:37:21 08/12/19 24 08/15/2023 VITAM IN E vitamin E(gamma tocopherol) 1.8 mg/L 0.5-5. 5 Refer ence inter vals for alpha and gamma -toco phero l deter mined from [facility] and Nutri tion Exami natio n Surve y, 2004- 2005. Indiv idual s with alpha -toco phero l level s less than 5.0 mg/L are consi dered vitam in E defic ient. Not Available [facility] ([facility]) [address] [facility], [place], [address], 08/18/2023 04:37:21 08/12/19 24 08/13/2023 FOLAT E (FOLI C ACID) , SERUM folate (folic acid), serum 14.1 NG/mL >3.0 A serum folat e rhonda ntrat ion of less than 3.1 ng/mL is consi dered to repre sent clini abena defic iency . Not Available [facility] ([facility]) [address] [facility], [place], [address], 08/18/2023 04:37:22 08/12/19 24 08/15/2023 VITAM IN A, SERUM vitamin A 50.1 ug/dL 20.1-6 2.0 Refer ence inter vals for vitam in A deter mined from [facility] inter nal studi es. Indiv idual s with vitam in A less than 20 ug/dL are consi dered vitam in A defic ient and those with serum rhonda ntrat ions less than 10 ug/dL are consi dered sever carley defic ient. This test was devel oped and its perfo rmanc e lindsay cteri stics deter mined by [facility]. It has not been clear ed or appro zane by the Food and Drug Admin istra tion. Not Available [facility] ([facility]) [address] [facility], [place], [address], 08/18/2023 04:37:23 08/12/19 24 08/13/2023 VITAM IN D, 25-HY DROXY vitamin D, 25-hydroxy 29.9 NG/mL 30.0-1 00.0 below low normal Vitam in D defic iency has been defin ed by the Insti tute of Medic ine and an Endoc rine Socie ty pract ice guide line as a level of serum 25-OH vitam in D less than 20 ng/mL (1,2) . The Endoc rine Socie ty went on to fur er defin e vitam in D insuf ficie ncy as a level betwe en 21 and 29 ng/mL (2). 1. IOM (Inst itute of Medic ine). 2010. Dieta ry refer ence intak es for calci um and D. Apple su DC: The [facility] . 2. Dion gramajo MF, Yolanda dodd [place], Bianca off-F errar i JACINTO, et al. Evalu ation , treat ment, and preve ntion of vitam in D defic iency : an Endoc rine Socie ty clini abena pract ice guide line. JCEM. 2010; 96(7) :1911 -30. Not Available [facility] ([facility]) [address] [facility], [place], [address], 08/18/2023 04:37:24 08/12/19 24 08/17/2023 VITAM IN B1 (THIA MINE) , BLOOD vit. B1, whole blood 140.3 nmol/ L 66.5-2 00.0 Not Available [facility] ([facility]) [address] [place], [address], 08/18/2023 04:37:24 08/12/19 24 08/18/2023 METHY LMALO TIRSO ACID, SERUM methylmaloni c acid, serum 194 nmol/ L 0-378 Not Available [facility] ([facility]) [address] [place], [address], 08/18/2023 04:37:25 08/12/19 24 08/13/2023 PREAL BUMIN prealbumin 24 mg/dL 12-34 Not Available [facility] ([facility]) [address] [place], [address], 08/18/2023 04:37:26 08/12/19 24 08/26/2023 FACTO R V LEIDE N MUTAT ION factor V leiden COMMEN T Resul t: c.160 1G>A (p.Ar g534G ln) - Not Detec ellen . This resul t is not assoc iated with an incre ased risk for chayo ous throm boemb olism . See Addit ional Clini abena Infor matio n and Comme nts. . Addit ional Clini abena Infor matrobert n: Venou s throm boemb olism is a multi facto rial disea se influ enced by dee ic, envir onmen molina, and circu mstan tial risk facto rs. The c.160 1G>A (p. Arg53 4Gln) varia nt in the F5 gene, commo nly refer red to as Facto r V Leide n, is a dee ic risk facto r for venou s throm boemb olism . Heter ozygo us kaushik ers of this varia nt have a 6- to 8- fold incre ased risk for venou s throm boemb olism . Indiv idual s homoz ygous for this varia nt (ie, with a copy of the varia nt on each chrom osome ) have an appro ximat carley 80-fo ld incre ased risk for venou s throm boemb olism . Indiv idual s who carry both a c.*97 G>A varia nt in the F2 gene and Facto r V Leide n have an appro ximat carley 20-fo ld incre ased risk for venou s throm boemb olism . Risks are likel y to be even highe r in more compl ex genot ype combi natio ns invol ving the F2 c.*97 G>A varia nt and Facto r V Leide n (PMID : [id number]). Addit ional risk facto rs inclu de but are not limit ed to: defic iency of prote in C, prote in S, or antit hromb in III, age, male sex, perso nal or famil y histo ry of deep vein throm boemb olism , smoki ng, surge ry, prolo nged immob iliza tion, malig nant neopl asm, tamox ifen treat ment, ralox ifene treat ment, oral contr acept shun use, hormo ne repla cemen t thera py, and pregn jovanna. Manag ement of throm botic risk and throm botic event s shoul d follo w estab lishe d guide lines and fit the clini abena circu mstan ce. This resul t canno t predi ct the occur rence or recur rence of a throm botic event . . Comme nt: Dee ic couns jazmin is recom marisela d to discu ss the poten tial clini abena impli catio ns of posit shun resul ts, as well as recom menda tions for testi ng famil y membe rs. . Dee ic Coord inato rs are avail able for healt h care provi ders to discu ss resul ts at [phone] ([phone] ). . Test Detai ls: Varia nt Jesús zed: c.160 1G>A (p. Arg53 4Gln) , refer red to as Facto r V Jass n . Metho ds/Li mitat ions: DNA jesús sis of the F5 gene ([id number]) was perfo rmed by PCR ampli ficat ion follo wed by restr ictio n enzym e jesús sis. The diagn ostic sensi tivit y is >99%. Resul ts must be combi patel with clini abena infor matio n for the most accur ate inter preta tion. Molec ular- based testi ng is highl y accur ate, but as in any labor atory test, diagn ostic error s may occur . False posit shun or false negat shun resul ts may occur for reaso ns that inclu de dee ic varia nts, blood trans fusio ns, bone marro w trans plant ation , somat ic or tissu e-spe cific mosai cism, misla beled sampl es, or mari eous repre senta tion of famil y relat ionsh ips. . This test was devel oped and its perfo rmanc e lindsay cteri stics deter mined by [facility]. It has not been clear ed or appro zane by the Food and Drug Admin istra tion. . Refer ences : Estelle S, Kim elizabeth AK, Sherlyn ho R, Laurent ESPINOZA, Felix in JH; ACMG Profe ssion al Pract ice and Guide lines Commi ttee. Adden dum: Donovan parsons Colle ge of Medic al Dee ics conse nsus state ment on facto r V Leiarnulfo n mutat ion testi ng. Dee Med. 2020Jul 06. doi: 10.10 38/s4 1436- 021-0 1108- x. PMID: 64419 767. . Tracie REYNAGA. Facto r V Leide n Throm bophi dixie. 1998September 14 (Upda ellen 2017May 07). In: Butch MP, Hattie pyle HH, Yusuf RA, et al., madhav rs. GeneR dayana s(R) (Inte rnet) . Librado hilario (MI): Unive ity of Josh Beauchampjasvir hilario; 1992- 2020. Avail able from: https ://ww w.ncb i.nlm .nih. gov/b ooks/ NBK13 68/ . Vincent S, Kim r AK, Geremias X, Javier B, Spect or EB, Madonna P, Cathie melissa CS; [facility] Labor atory Quali ty Assur ance Commi ttee. Venou s throm boemb olism labor atory testi ng (fact or V Leide n and facto r II c.*97 G>A), 2018 updat e: a techn ical stand fredrick of the Donovan Ybarra ge of Medic al Dee ics and Genom ics ([facility] ). Dee Med. 2018 Apr;2 0(12) :1489 -1498 . doi: 10.[facility]/s4 1436- 018-0 322-z . Epub 2017Feb 05. PMID: 79286 698. Not Available [facility] ([facility]) [address] [facility], [place], [address], 08/26/2023 10:13:44 08/12/19 24 08/26/2023 FACTO R V LEIDE N MUTAT ION reviewed by: RADHA Tay Techn ical [place] nent perfo rmed at [facility] [place] Jennifer reyes al [place] nent perfo rmed by: . Gustavo dodd, Ph.D. , [facility] Direc tor, Molec ular Dee ics [address] [facility] [place] [address] Perfo rmed at: - [facility] [place] [address] , [place] [address] Lab Direc tor: Lindsey Riggins MDPhD , Phone : [phone] Not Available [facility] ([facility]) [address] , [place], [address], 08/26/2023 10:13:44 09/14/19 24 09/14/2023 CBC AUTO W DIFF WBC 5.0 K/uL 4.0-10 .5 Not Available [facility] ([facility]) [address] , [place], [address], 09/14/2023 17:58:49 09/14/19 24 09/14/2023 CBC AUTO W DIFF RBC 4.9 M/mm3 4.2-6. 4 Not Available [facility] ([facility]) [address] , [place], [address], 09/14/2023 17:58:49 09/14/19 24 09/14/2023 CBC AUTO W DIFF HGB 12.8 gm/dL 12.5-1 6.0 Not Available [facility] ([facility]) [address] , [place], [address], 09/14/2023 17:58:49 09/14/19 24 09/14/2023 CBC AUTO W DIFF HCT 37.9 % 37.0-4 7.0 Not Available [facility] ([facility]) [address] , [place], [address], 09/14/2023 17:58:49 09/14/19 24 09/14/2023 CBC AUTO W DIFF MCV 78.0 fL 78-100 Not Available [facility] ([facility]) [address] , [place], [address], 09/14/2023 17:58:49 09/14/19 24 09/14/2023 CBC AUTO W DIFF MCH 26.3 pg 27-31 low Not Available [facility] ([facility]) [address] , [place], [address], 09/14/2023 17:58:49 09/14/19 24 09/14/2023 CBC AUTO W DIFF MCHC 33.8 g/dL 32-36 Not Available [facility] ([facility]) [address] [place], [address], 09/14/2023 17:58:49 09/14/19 24 09/14/2023 CBC AUTO W DIFF RDW 15.5 % 11.5-1 4.0 high Not Available [facility] ([facility]) [address] , [place], [address], 09/14/2023 17:58:49 09/14/19 24 09/14/2023 CBC AUTO W DIFF platelet count 240 K/uL 150-45 0 Not Available [facility] ([facility]) [address], [place], [address], 09/14/2023 17:58:49 09/14/19 24 09/14/2023 CBC AUTO W DIFF MPV 10.4 fL 6-9.5 high Not Available [facility] ([facility]) [address] [place], [address], 09/14/2023 17:58:49 09/14/19 24 09/14/2023 CBC AUTO W DIFF neutrophil% 53.9 % 43-65 Not Available [facility] ([facility]) [address] [place], [address], 09/14/2023 17:58:49 09/14/19 24 09/14/2023 CBC AUTO W DIFF lymphocyte% 38.5 % 20.5-4 5.5 Not Available [facility] ([facility]) [address] [place], [address], 09/14/2023 17:58:49 09/14/19 24 09/14/2023 CBC AUTO W DIFF monocyte% 6.2 % 5.5-11 .7 Not Available [facility] ([facility]) [address] [place], [address], 09/14/2023 17:58:49 09/14/19 24 09/14/2023 CBC AUTO W DIFF eosinophil% 0.8 % 0.9-2. 9 low Not Available [facility] ([facility]) [address] [facility], [place], [address], 09/14/2023 17:58:49 09/14/19 24 09/14/2023 CBC AUTO W DIFF basophil% 0.4 % 0.2-1. 0 Not Available [facility] ([facility]) [address] [place], [address], 09/14/2023 17:58:49 09/14/19 24 09/14/2023 CBC AUTO W DIFF immature granulocytes % 0.2 % 0.0-0. 8 Not Available [facility] ([facility]) [address] [place], [address], 09/14/2023 17:58:49 09/14/19 24 09/14/2023 CBC AUTO W DIFF nucleated red blood cells % 0.0 % Not Available [facility] ([facility]) [address] [place], [address], 09/14/2023 17:58:49 09/14/19 24 09/14/2023 CBC AUTO W DIFF neutrophil# 2.7 K/uL 2.2-4. 8 Not Available [facility] ([facility]) [address] [place], [address], 09/14/2023 17:58:49 09/14/19 24 09/14/2023 CBC AUTO W DIFF lymphocyte# 1.9 cell/ mcL 1.3-2. 9 Not Available [facility] ([facility]) [address] [place], [address], 09/14/2023 17:58:49 09/14/19 24 09/14/2023 CBC AUTO W DIFF monocyte# 0.3 cell/ mcL 0.3-0. 8 Not Available [facility] ([facility]) [address], [place], [address], 09/14/2023 17:58:49 09/14/19 24 09/14/2023 CBC AUTO W DIFF eosinophil# 0.0 cell/ mcL 0-0.2 Not Available [facility] ([facility]) [address] [facility], [place], [address], 09/14/2023 17:58:49 09/14/19 24 09/14/2023 CBC AUTO W DIFF basophil# 0.0 cell/ mcL 0.0-1. 0 Not Available [facility] ([facility]) [address] [facility], [place], [address], 09/14/2023 17:58:49 09/14/19 24 09/14/2023 CBC AUTO W DIFF immature gramulocytes # 0.01 K/uL Not Available [facility] ([facility]) [address] [facility], [place], [address], 09/14/2023 17:58:49 09/14/19 24 09/14/2023 CBC AUTO W DIFF nucleated red blood cells # 0.00 K/uL Not Available [facility] ([facility]) [address] [facility], [place], [address], 09/14/2023 17:58:49 09/14/19 24 09/14/2023 CBC AUTO W DIFF manual differential NO Not Available [facility] ([facility]) [address] [place], [address], 09/14/2023 17:58:49 09/14/19 24 09/14/2023 COMP METAB OLIC PANEL sodium 142 mmol/ L 136-14 5 Not Available [facility] ([facility]) [address] [place], [address], 09/14/2023 18:30:47 09/14/19 24 09/14/2023 COMP METAB OLIC PANEL potassium 3.4 mmol/ L 3.6-5. 0 low Not Available [facility] ([facility]) [address] , [place], [address], 09/14/2023 18:30:47 09/14/19 24 09/14/2023 COMP METAB OLIC PANEL chloride 106 mmol/ L 98-107 Not Available [facility] ([facility]) [address] , [place], [address], 09/14/2023 18:30:47 09/14/19 24 09/14/2023 COMP METAB OLIC PANEL carbon dioxide 25.9 mmol/ L 21.0-3 2.0 Not Available [facility] ([facility]) [address] , [place], [address], 09/14/2023 18:30:47 09/14/19 24 09/14/2023 COMP METAB OLIC PANEL anion gap 13.5 Not Available [facility] ([facility]) [address] , [place], [address], 09/14/2023 18:30:47 09/14/19 24 09/14/2023 COMP METAB OLIC PANEL glucose 79 mg/dL 70-120 Not Available [facility] ([facility]) [address] , [place], [address], 09/14/2023 18:30:47 09/14/19 24 09/14/2023 COMP METAB OLIC PANEL BUN 12 mg/dL 7-18 Not Available [facility] ([facility]) [address] [place], [address], 09/14/2023 18:30:47 09/14/19 24 09/14/2023 COMP METAB OLIC PANEL creatinine 0.9 mg/dL 0.6-1. 3 Not Available [facility] ([facility]) [address] [place], [address], 09/14/2023 18:30:47 09/14/19 24 09/14/2023 COMP METAB OLIC PANEL glomerular filtration rate >60 mlper min 60- Not Available [facility] ([facility]) [address] , [place], [address], 09/14/2023 18:30:47 09/14/19 24 09/14/2023 COMP METAB OLIC PANEL total protein 6.6 g/dL 6.4-8. 2 Not Available [facility] ([facility]) [address] , [place], [address], 09/14/2023 18:30:47 09/14/19 24 09/14/2023 COMP METAB OLIC PANEL albumin 4.1 g/dL 3.4-5. 0 Not Available [facility] ([facility]) [address] , [place], [address], 09/14/2023 18:30:47 09/14/19 24 09/14/2023 COMP METAB OLIC PANEL globulin 2.5 Not Available [facility] ([facility]) [address] , [place], [address], 09/14/2023 18:30:47 09/14/19 24 09/14/2023 COMP METAB OLIC PANEL alb/glob ratio 1.6 0.7-2 Not Available [facility] ([facility]) [address] , [place], [address], 09/14/2023 18:30:47 09/14/19 24 09/14/2023 COMP METAB OLIC PANEL calcium 9.5 mg/dL 8.5-10 .5 Not Available [facility] ([facility]) [address] , [place], [address], 09/14/2023 18:30:47 09/14/19 24 09/14/2023 COMP METAB OLIC PANEL bilirubin total 0.40 mg/dL 0.10-1 .00 Not Available [facility] ([facility]) [address], [place], [address], 09/14/2023 18:30:47 09/14/19 24 09/14/2023 COMP METAB OLIC PANEL AST (SGOT) 30 U/L 0-37 Not Available [facility] ([facility]) [address], [place], [address], 09/14/2023 18:30:47 09/14/19 24 09/14/2023 COMP METAB OLIC PANEL ALT (SGPT) 71 U/L 0-65 high Not Available [facility] ([facility]) [address] [facility], [place], [address], 09/14/2023 18:30:47 09/14/19 24 09/14/2023 COMP METAB OLIC PANEL alk phosphatase 94 U/L 46-116 Not Available [facility] ([facility]) [address], [place], [address], 09/14/2023 18:30:47 09/14/19 24 09/17/2023 FACTO R VIII (8) ACTIV ITY factor VIII (8) activity 103 % 56-140 Perfo rmed at: - [facility] [place] [address] [place] [address] [place] [address] Lab Direc tor: Fabiola contreras MD, Phone : [phone] Not Available [facility] ([facility]) [address] [facility], [place], [address], 09/17/2023 06:14:34 09/14/19 24 09/17/2023 PROTE IN S-FUN CTION AL(AC TIVIT Y) protein S, functional 41 % 63-140 low A defic iency of prote in S (PS), eithe r conge nital or acqui red, incre ases the risk of throm boemb olism . PS activ ity level s may be false ly low in indiv idual s with APCR/ Facto r V Leide n. Consi nash perfo rming free prote in S antig en in those with APCR/ Facto r V Leide n befor e hitesh g a diagn osis of prote in S defic iency . Acqui red PS defic iency is more commo n than conge nital defic iency . PS value s decre ase with juan l pregn jovanna, and are also depen dent on age, sex and hormo ne statu s. PS value s tend to be lower in a young er age group and lower in women than in men. Level s may be decre ased in pre-m enopa usal women on oral contr acept shun agent s. Acqui red defic iency can occur as a resul t of vitam in K defic iency or antag onism , sever e hepat ic disor ders, (hepa titis , cirrh osis, etc.) , nephr otic syndr ome, infla mmato ry bowel disea se, certa in chemo thera peuti c agent s, L-asp aragi nse thera py, sepsi s, disse minat ed intra vascu lar coagu latio n (DIC) and acute throm bosis . Level s may be decre ased in patie nts with polyc ythem ia vera, sickl e cell disea se and essen tial throm bocyt hemia . Repea t evalu ation on a new plasm a sampl e to confi rm or refut e this resul t shoul d be consi dered , after itzel g out acqui red cause s, depen ding on the clini abena scena lucas. Perfo rmed at: [facility] [place] [address] [facility] , [place] [address] Lab Direc tor: Fabiola contreras MD, Phone : [phone] Not Available [facility] ([facility]) [address], [place], [address], 09/17/2023 06:14:35 09/14/19 24 10/02/2023 FACTO R II, DNA JESÚS SIS factor II, DNA analysis Commen t Resul t: c.*97 G>A - Not Detec ellen . This resul t is not assoc iated with an incre ased risk for chayo ous throm boemb olism . See Addit ional Clini abena Infor matrobert n and Comme nts. . Addit ional Clini abena Infor matio n: Venou s throm boemb olism is a multi facto rial disea se influ ence d by dee ic, envir onmen molina, and circu mstan tial risk facto rs. The c.*97 G>A varia nt in the F2 gene is a dee ic risk facto r for venou s throm boemb olism . Heter ozygo us kaushik ers have a 2- to 4-fol d i ncrea sed risk for venou s throm boemb olism . Homoz ygote s for the c.*97 G> A varia nt are rare. The annua l risk of VTE in homoz ygote s has been rep orted to be 1.1%/ year. Indiv idual s who carry both a c.*97 G>A varia nt in the F2 gene and a c.160 1G>A (p. Arg53 4Gln) varia nt in the F5 gen e (comm only refer red to as Facto r V Leide n) have an appro ximat carley 20- fold incre ased risk for venou s throm boemb olism . Risks are li sofie to be even highe r in more compl ex genot ype combi natio ns invol vi ng the F2 c.*97 G>A varia nt and Facto r V Leide n (PMID : [id number]). Ad ditio nal risk facto rs inclu de but are not limit ed to: defic iency of p rotei n C, prote in S, or antit hromb in III, age, male sex, perso nal or f amily histo ry of deep vein throm boemb olism , smoki ng, surge ry, prol onged immob iliza tion, malig nant neopl asm, tamox ifen treat ment, ral oxife ne treat ment, oral contr acept shun use, hormo ne repla cemen t thera py, and pregn jovanna. Manag ement of throm botic risk and throm botic even ts shoul d follo w estab lishe d guide lines and fit the clini abena circu msta nce. This resul t canno t predi ct the occur rence or recur rence of a thro mboti c event . . Comme nts: Dee ic couns jazmin is recom marisela d to discu ss the poten tial c linic al impli catio ns of posit shun resul ts, as well as recom menda tions for testi ng famil y membe rs. Dee ic Coord inato rs are avail able for healt h care provi ders to discu ss resul ts at [phone] . Test Detai ls: Varia nt jesús zed: c.*97 G>A, previ ously refer red to as G2021 0 A . Metho ds/Li mitat ions: DNA jesús sis of the F2 gene ([id number]) was perfo rmed by P CR ampli ficat ion follo wed by restr ictio n enzym e jesús sis. The d iagno stic sensi tivit y is >99%. Resul ts must be combi patel with clini abena infor matio n for the most accur ate inter preta tion. Molec ular- based testi ng is highl y accur ate, but as in any labor atory test, d iagno stic error s may occur . False posit shun or false negat shun resul ts m ay occur for reaso ns that inclu de dee ic varia nts, blood trans fusio n s, bone marro w trans plant ation , somat ic or tissu e-spe cific mosai cism , misla beled sampl es, or mari eous repre senta tion of famil y relat ionsh ips. . This test was devel oped and its perfo rmanc e lindsay cteri stics deter mined by [facility]. It has not been clear ed or appro zane by the Food and Drug Admin istra tion. . Refer ences : Estelle S, Kim elizabeth AK, Sherlyn Elizabeth, Laurent ESPINOZA, Felix in ; ACMG Pro fessi onal Pract ice and Guide lines Commi ttee. Adden dum: Ameri can Colle g e of Medic al Dee ics conse nsus state ment on facto r V Leide n muta tion testi ng. Dee Med. 2020Jul 06. doi: 10.10 38/s4 1436- 021-0 110 8-x. PMID: 26193 767. . Tracie hilario JL. Proth rombi n Throm bophi dixie. 2005Nov 25 Updat ed 2020Jun 07 . In: Butch MP, Hattie pyle HH, Yusuf RA, et al., madhav rs. GeneR eview s(R) Inter net . Seatt yanelis ([place]): Unive rsity of [facility] Librado su yanelis; 1992- 2020. Avail able from: https ://nolberto w.mab i.nlm .nih. gov/b ooks/ NBK11 48/ . Vincent S, Kim elizabeth AK, Geremias X, Javier B, Spect or EB, Madonna P, Ramon ferro CS; [facility] Labor atory Quali ty Assur ance Commi ttee. Venou s throm lesli mboli sm labor atory testi ng (fact or V Leide n and facto r II c.*97 G>A), 2018 updat e: a techn ical stand fredrick of the [facility] Y[facility] ge of Medic al Dee ics and Genom ics ([facility] ). Dee Med. 2017;2 0(12) :148 9-149 8. doi: 10.10 38/s4 1436- 018-0 322-z . Epub 2017Feb 05. PMID: 16878 698. Not Available [facility] ([facility]) [address] , [place], [address], 10/02/2023 17:10:37 09/14/19 24 10/02/2023 FACTO R II, DNA JESÚS SIS reviewed by: Radha tay Techn ical [place] nent perfo rmed at [facility] RTP Profe amy al [place] nent perfo rmed by: Phi Hoyos, Ph.D. , [facility]AC[facility] Direc tor, Molec ular Dee ics [address] [facility] [place] Perfo rmed at: TG [facility]P [address] , [facility] [address] Lab Direc tor: Lindsey Riggins [facility] , Phone : [phone] Not Available [facility] ([facility]) [address], [place], [address], 10/02/2023 17:10:37 11/02/19 24 11/03/2023 FE+TI BC+FE R iron bind.cap.(TI BC) 423 ug/dL 250-45 0 Not Available [facility] ([facility]) [address] [place], [address], 11/08/2023 18:36:13 11/02/19 24 11/03/2023 FE+TI BC+FE R UIBC 382 ug/dL 131-42 5 Not Available [facility] ([facility]) [address] [place], [address], 11/08/2023 18:36:13 11/02/19 24 11/03/2023 FE+TI BC+FE R iron 41 ug/dL 27-159 Not Available [facility] ([facility]) [address] [place], [address], 11/08/2023 18:36:13 11/02/19 24 11/03/2023 FE+TI BC+FE R iron saturation 10 % 15-55 below low normal Not Available [facility] ([facility]) [address] [place], [address], 11/08/2023 18:36:13 11/02/19 24 11/03/2023 FE+TI BC+FE R ferritin 16 NG/mL 15-150 Not Available [facility] ([facility]) [address] [place], [address], 11/08/2023 18:36:13 11/02/19 24 11/03/2023 TSH+F REE T4 TSH 2.630 uIU/m L 0.450- 4.500 Not Available [facility] ([facility]) [address] [place], [address], 11/08/2023 18:36:14 11/02/19 24 11/03/2023 TSH+F REE T4 T4,free(dire ct) 0.98 NG/dL 0.82-1 .77 Not Available [facility] ([facility]) [address] [facility], [place], [address], 11/08/2023 18:36:14 11/02/19 24 11/03/2023 CBC WITH DIFFE RENTI AL/PL ATELE T WBC 4.1 x10e3 /uL 3.4-10 .8 Not Available [facility] ([facility]) [address] [facility], [place], [address], 11/08/2023 18:36:14 11/02/19 24 11/03/2023 CBC WITH DIFFE RENTI AL/PL ATELE T RBC 4.38 x10e6 /uL 3.77-5 .28 Not Available [facility] ([facility]) [address] [place], [address], 11/08/2023 18:36:14 11/02/19 24 11/03/2023 CBC WITH DIFFE RENTI AL/PL ATELE T hemoglobin 11.3 g/dL 11.1-1 5.9 Not Available [facility] ([facility]) [address] [place], [address], 11/08/2023 18:36:14 11/02/19 24 11/03/2023 CBC WITH DIFFE RENTI AL/PL ATELE T hematocrit 34.6 % 34.0-4 6.6 Not Available [facility] ([facility]) [address] [place], [address], 11/08/2023 18:36:14 11/02/19 24 11/03/2023 CBC WITH DIFFE RENTI AL/PL ATELE T MCV 79 fL 79-97 Not Available [facility] ([facility]) [address] [facility], [place], [address], 11/08/2023 18:36:14 11/02/19 24 11/03/2023 CBC WITH DIFFE RENTI AL/PL ATELE T MCH 25.8 pg 26.6-3 3.0 below low normal Not Available [facility] ([facility]) [address] [facility], [place], [address], 11/08/2023 18:36:14 11/02/19 24 11/03/2023 CBC WITH DIFFE RENTI AL/PL ATELE T MCHC 32.7 g/dL 31.5-3 5.7 Not Available [facility] ([facility]) [address] [facility], [place], [address], 11/08/2023 18:36:14 11/02/19 24 11/03/2023 CBC WITH DIFFE RENTI AL/PL ATELE T RDW 14.3 % 11.7-1 5.4 Not Available [facility] ([facility]) [address] [facility], [place], [address], 11/08/2023 18:36:14 11/02/19 24 11/03/2023 CBC WITH DIFFE RENTI AL/PL ATELE T platelets 240 x10e3 /uL 150-45 0 Not Available [facility] ([facility]) [address] [facility], [place], [address], 11/08/2023 18:36:14 11/02/19 24 11/03/2023 CBC WITH DIFFE RENTI AL/PL ATELE T neutrophils 50 % not estab. Not Available [facility] ([facility]) [address] [facility], [place], [address], 11/08/2023 18:36:14 11/02/19 24 11/03/2023 CBC WITH DIFFE RENTI AL/PL ATELE T lymphs 41 % not estab. Not Available [facility] ([facility]) [address] [facility], [place], [address], 11/08/2023 18:36:14 11/02/19 24 11/03/2023 CBC WITH DIFFE RENTI AL/PL ATELE T monocytes 7 % not estab. Not Available [facility] ([facility]) [address] [facility], [place], [address], 11/08/2023 18:36:14 11/02/19 24 11/03/2023 CBC WITH DIFFE RENTI AL/PL ATELE T eos 1 % not estab. Not Available [facility] ([facility]) [address] [facility], [place], [address], 11/08/2023 18:36:14 11/02/19 24 11/03/2023 CBC WITH DIFFE RENTI AL/PL ATELE T basos 1 % not estab. Not Available [facility] ([facility]) [address] [facility], [place], [address], 11/08/2023 18:36:14 11/02/19 24 11/03/2023 CBC WITH DIFFE RENTI AL/PL ATELE T immature cells SENIOR INFORMATION DEVELOPER Not Available [facility] ([facility]) [address] [facility], [place], [address], 11/08/2023 18:36:14 11/02/19 24 11/03/2023 CBC WITH DIFFE RENTI AL/PL ATELE T neutrophils (absolute) 2.0 x10e3 /uL 1.4-7. 0 Not Available [facility] ([facility]) [address] [place], [address], 11/08/2023 18:36:14 11/02/19 24 11/03/2023 CBC WITH DIFFE RENTI AL/PL ATELE T lymphs (absolute) 1.7 x10e3 /uL 0.7-3. 1 Not Available [facility] ([facility]) [address] [place], [address], 11/08/2023 18:36:14 11/02/19 24 11/03/2023 CBC WITH DIFFE RENTI AL/PL ATELE T monocytes(ab solute) 0.3 x10e3 /uL 0.1-0. 9 Not Available [facility] ([facility]) [address] [facility], [place], [address], 11/08/2023 18:36:14 11/02/19 24 11/03/2023 CBC WITH DIFFE RENTI AL/PL ATELE T eos (absolute) 0.0 x10e3 /uL 0.0-0. 4 Not Available [facility] ([facility]) [address] [place], [address], 11/08/2023 18:36:14 11/02/19 24 11/03/2023 CBC WITH DIFFE RENTI AL/PL ATELE T baso (absolute) 0.0 x10e3 /uL 0.0-0. 2 Not Available [facility] ([facility]) [address] [facility], [place], [address], 11/08/2023 18:36:14 11/02/19 24 11/03/2023 CBC WITH DIFFE RENTI AL/PL ATELE T immature granulocytes 0 % not estab. Not Available [facility] ([facility]) [address] [place], [address], 11/08/2023 18:36:14 11/02/19 24 11/03/2023 CBC WITH DIFFE RENTI AL/PL ATELE T immature grans (abs) 0.0 x10e3 /uL 0.0-0. 1 Not Available [facility] ([facility]) [address] [place], [address], 11/08/2023 18:36:14 11/02/19 24 11/03/2023 CBC WITH DIFFE RENTI AL/PL ATELE T NRBC SENIOR INFORMATION DEVELOPER Not Available [facility] ([facility]) [address] [place], [address], 11/08/2023 18:36:14 11/02/19 24 11/03/2023 CBC WITH DIFFE BAY AL/PAM Tay hematology comments: SENIOR INFORMATION DEVELOPER Not Available [facility] ([facility]) [address] [facility], [place], [address], 11/08/2023 18:36:14 11/02/19 24 11/03/2023 COMP. METAB OLIC PANEL (14) glucose 82 mg/dL 70-99 Not Available [facility] ([facility]) [address] [facility], [place], [address], 11/08/2023 18:36:15 11/02/19 24 11/03/2023 COMP. METAB OLIC PANEL (14) BUN 12 mg/dL 6-24 Not Available [facility] ([facility]) [address] [facility], [place], [address], 11/08/2023 18:36:15 11/02/19 24 11/03/2023 COMP. METAB OLIC PANEL (14) creatinine 0.84 mg/dL 0.57-1 .00 Not Available [facility] ([facility]) [address] [facility], [place], [address], 11/08/2023 18:36:15 11/02/19 24 11/03/2023 COMP. METAB OLIC PANEL (14) eGFR 87 mL/mi n/1.7 3 >59 Not Available [facility] ([facility]) [address] [facility], [place], [address], 11/08/2023 18:36:15 11/02/19 24 11/03/2023 COMP. METAB OLIC PANEL (14) BUN/creatini ne ratio 14 9-23 Not Available [facility] ([facility]) [address] [facility], [place], [address], 11/08/2023 18:36:15 11/02/19 24 11/03/2023 COMP. METAB OLIC PANEL (14) sodium 141 mmol/ L 134-14 4 Not Available [facility] ([facility]) [address] [facility] [place], [address], 11/08/2023 18:36:15 11/02/19 24 11/03/2023 COMP. METAB OLIC PANEL (14) potassium 3.9 mmol/ L 3.5-5. 2 Not Available [facility] ([facility]) [address] [facility] [place], [address], 11/08/2023 18:36:15 11/02/19 24 11/03/2023 COMP. METAB OLIC PANEL (14) chloride 105 mmol/ L 96-106 Not Available [facility] ([facility]) [address] [facility] [place], [address], 11/08/2023 18:36:15 11/02/19 24 11/03/2023 COMP. METAB OLIC PANEL (14) carbon dioxide, total 23 mmol/ L 20-29 Not Available [facility] ([facility]) [address] [facility] [place], [address], 11/08/2023 18:36:15 11/02/19 24 11/03/2023 COMP. METAB OLIC PANEL (14) calcium 9.4 mg/dL 8.7-10 .2 Not Available [facility] ([facility]) [address] [facility] [place], [address], 11/08/2023 18:36:15 11/02/19 24 11/03/2023 COMP. METAB OLIC PANEL (14) protein, total 6.2 g/dL 6.0-8. 5 Not Available [facility] ([facility]) [address] [facility] [place], [address], 11/08/2023 18:36:15 11/02/19 24 11/03/2023 COMP. METAB OLIC PANEL (14) albumin 4.1 g/dL 3.9-4. 9 Not Available [facility] ([facility]) [address] [facility] [place], [address], 11/08/2023 18:36:15 11/02/19 24 11/03/2023 COMP. METAB OLIC PANEL (14) globulin, total 2.1 g/dL 1.5-4. 5 Not Available [facility] ([facility]) [address] [facility] [place], [address], 11/08/2023 18:36:15 11/02/19 24 11/03/2023 COMP. METAB OLIC PANEL (14) bilirubin, total 0.2 mg/dL 0.0-1. 2 Not Available [facility] ([facility]) [address] [facility] [place], [address], 11/08/2023 18:36:15 11/02/19 24 11/03/2023 COMP. METAB OLIC PANEL (14) alkaline phosphatase 104 IU/L 44-121 Not Available [facility] ([facility]) [address] [facility] [place], [address], 11/08/2023 18:36:15 11/02/19 24 11/03/2023 COMP. METAB OLIC PANEL (14) AST (SGOT) 38 IU/L 0-40 Not Available [facility] ([facility]) [address] [facility] [place], [address], 11/08/2023 18:36:15 11/02/19 24 11/03/2023 COMP. METAB OLIC PANEL (14) ALT (SGPT) 57 IU/L 0-32 above high normal Not Available [facility] ([facility]) [address] [facility] [place], [address], 11/08/2023 18:36:15 11/02/19 24 11/05/2023 VITAM IN E vitamin E(alpha tocopherol) 10.1 mg/L 7.0-25 .1 Not Available [facility] ([facility]) [address] [facility], [place], [address], 11/08/2023 18:36:15 11/02/19 24 11/05/2023 VITAM IN E vitamin E(gamma tocopherol) 1.8 mg/L 0.5-5. 5 Refer ence inter vals for alpha and gamma -toco phero l deter mined from [facility] and Nutri tion Exami natio n Surve y, 2004- 2005. Indiv idual s with alpha -toco phero l level s less than 5.0 mg/L are consi dered vitam in E defic ient. Not Available [facility] ([facility]) [address] [facility], [place], [address], 11/08/2023 18:36:15 11/02/19 24 11/03/2023 FOLAT E (FOLI C ACID) , SERUM folate (folic acid), serum 10.0 NG/mL >3.0 A serum folat e rhonda ntrat ion of less than 3.1 ng/mL is consi dered to repre sent clini abena defic iency . Not Available [facility] ([facility]) [address] [facility], [place], [address], 11/08/2023 18:36:16 11/02/19 24 11/05/2023 VITAM IN A, SERUM vitamin A 43.1 ug/dL 20.1-6 2.0 Refer ence inter vals for vitam in A deter mined from [facility] inter nal studi es. Indiv idual s with vitam in A less than 20 ug/dL are consi dered vitam in A defic ient and those with serum hronda ntrat ions less than 10 ug/dL are consi dered sever carley defic ient. This test was devel oped and its perfo rmanc e lindsay cteri stics deter mined by [facility]. It has not been clear ed or appro zane by the Food and Drug Admin istra tion. Not Available [facility] ([facility]) [address] [facility], [place], [address], 11/08/2023 18:36:16 11/02/19 24 11/03/2023 VITAM IN D, 25-HY DROXY vitamin D, 25-hydroxy 33.4 NG/mL 30.0-1 00.0 Vitam in D defic iency has been defin ed by the Insti tute of Medic ine and an Endoc rine Socie ty pract ice guide line as a level of serum 25-OH vitam in D less than 20 ng/mL (1,2) . The Endoc rine Socie ty went on to furth er defin e vitam in D insuf ficie ncy as a level betwe en 21 and 29 ng/mL (2). 1. IOM (Inst itute of Medic ine). 2009. Dieta ry refer ence intak es for calci um and D. Apple su DC: The [facility] Press . 2. Dion gramajo MF, Yolanda dodd [place], Bianca off-F errar i JACINTO, et al. Evalu ation , treat ment, and preve ntion of vitam in D defic iency : an Endoc rine Socie ty clini abena pract ice guide line. JCEM. 2010; 96(7) :1911 -30. Not Available [facility] ([facility]) [address] [place], [address], 11/08/2023 18:36:17 11/02/19 24 11/05/2023 VITAM IN B1 (THIA MINE) , BLOOD vit. B1, whole blood 100.4 nmol/ L 66.5-2 00.0 Not Available [facility] ([facility]) [address] [place], [address], 11/08/2023 18:36:17 11/02/19 24 11/08/2023 METHY LMALO TIRSO ACID, SERUM methylmaloni c acid, serum 171 nmol/ L 0-378 Not Available [facility] ([facility]) [address] [place], [address], 11/08/2023 18:36:18 11/02/19 24 11/04/2023 COPPE R, SERUM OR PLASM A copper, serum or plasma 101 ug/dL 80-158 Detec tion Limit = 5 Not Available [facility] ([facility]) [address] [facility], [place], [address], 11/08/2023 18:36:18 11/02/19 24 11/04/2023 ZINC, PLASM A OR SERUM zinc, plasma or serum 55 ug/dL 44-115 Detec tion Limit = 5 Not Available [facility] ([facility]) [address] [facility], [place], [address], 11/08/2023 18:36:19 11/02/19 24 11/03/2023 PREAL BUMIN prealbumin 19 mg/dL 12-34 Not Available [facility] ([facility]) [address] [facility], [place], [address], 11/08/2023 18:36:19 11/02/19 24 11/04/2023 SELEN IUM, BLOOD selenium, blood 174 ug/L 100-34 0 Detec tion Limit = 10 Not Available [facility] ([facility]) [address] [facility] [place], [address], 11/08/2023 18:36:20 11/02/19 24 11/02/2023 el scrn mammo w/CAD bilat [facility] [address] [place] [address] Phone: Fax: Name: FILIBERTO JIMENEZ Exam Date: 11/02/19 24 : 1979 Age 43 years Gender : F Access ion: [id number] Physic kallie: NICOLE LEAHYi ty: [place] Fac[place] ty HSV: Outpat ient Exam: EL SCRN MAMMO W/CAD BILAT MAMMOG KAILA SCREEN ING BILATE RAL HISTOR Y: Routin e screen ing exam TECHNI QUE: Standa rd digita l 2-D views with 3-D tomosy nthesi s COMPAR JOSUE: None, Baseli ne exam DENSIT Y: There are scatte red areas of fibrog landul ar densit y FINDIN GS: No mass, suspic ious calcif icatio ns or jennie ectura l distor tion is presen t. IMPRES BETTY: No mammog raphic eviden ce of malign jovanna BI-RAD S 1: Negati ve RECOMM ENDATI ON: Annual mammog sujatha CAD was utiliz ed during interp retati on. The patien t will be sent a letter from the mammog sujatha depart ment with their mammog sujatha result s. Dictat ed By: JOHNSON SMITH Transc ribed By: Sergio Smith Transc ribed On: 11/02/19 11:17 AM Electr onical ly signed by: JOHNSON SMITH 11/02/19 Thank you for referr FILIBERTO Ferrari to [facility] al. Legall y authen ticate d by LUIS DELARSOA 11-01 11:17: 59 CC'ed Logic: Orderi ng Provid er: MIGUEL STRAUSS Attend ing Provid er: MIGUEL STRAUSS Admitt ing Provid er: MIGUEL kelly[address] [place] [address] - Physical Therapy [address] [facility], [place], [address], 11/02/2023 14:05:56 Result Notes None recorded. Problems Name Problem SNOMED Code Status Onset Date Resolution Date Notes Provider Name and Address Organization Details Recorded Time Body mass index 40+ - severely obese 613330770 Active 2022 KATARINA BYRNE NP [address] , [place], [address] , [place] - [facility] & [place] 14:47:36 Hyperlipidemi a 81457899 Active 2023 KATARINA BYRNE NP [address] , [place], [address] , [place] [facility] & [place] 14:47:33 Morbid obesity 577483116 Active 2023 Popeye Humphrey DNP, UNARMED SECURITY GUARD, SENIOR INFORMATION DEVELOPER-C [address], [place], [address] , [place] - [facility] - [place] & [place] 4 10:21:44 Anxiety 64621743 Active 2023 Popeye Humphrey DNP, LUCHO, SENIOR INFORMATION DEVELOPER-C [address], [place], [address] , [place] - [facility] - [place] & [place] 4 10:21:57 Deep venous thrombosis of upper extremity 238671741 Active 2023 MYRTLE Alas [address], [place], [address] , [place] - [facility] - [place] & [place] 4 11:06:58 Intentional weight loss 338677930 Active 2023 MYRTLE Alas [address], [place], [address] , [place] [facility] - [place] & [place] 4 08:32:37 Abdominal pain 80622750 Active 2023 MYRTLE Alas [address], [place], [address] , [place] [facility] [place] & [place] 4 09:49:36 Vitamin D deficiency 94152703 Active 2023 MYRTLE Alas [address], [place], [address] , [place] - [facility] - [place] & [place] 4 11:37:23 Problem Notes None recorded. Procedures Surgical History Date Name Laterality Status Provider Name and Address Organization Details Recorded Time 02/27 ESOPHAGOGASTRODUODENOSCOPY (SURG) completed Popeye Humphrey DNP, UNARMED SECURITY GUARD, SENIOR INFORMATION DEVELOPER-C [address] , [place], [address] , [place] - [facility] - [place] & [place] 4 10:20:45 05/04 Cholecystectomy completed Yuki Fragoso [place] - [facility] - [place] & [place] 4 14:07:52 03/02 Date of Last Pap Smear completed Yuki Koromal SING[place] - [facility] & [place] 4 14:07:35 05/04 Other completed Yuki Rihcmond [place] - [facility] - [place] & [place] 4 14:07:52 05/04 Tonsillectomy/Adenoidectomy completed Heat her [place] - [facility] & [place] 4 14:07:[address], [place], [address] , [place] [facility] & [place] 3 10:31:52 Hysterectomy completed Victorina Gonzalez SINGH - [facility] & [place] 3 14:16:19 section completed Victorina Gonzalez SINGH - [facility] & [place] 3 14:16:33 extraction of wisdom tooth completed Victorina WINTERS - [facility] & [place] 3 14:16:47 Tonsillectomy completed Victorina Gonzalez SINGH - [facility] & [place] 3 14:16:59 procedure on urinary bladder completed [address], [place], [address] , [place] - [facility] & [place] 3 10:32:08 procedure on duodenum completed Aneta na Nix SINGH - [facility] & [place] 4 09:28:13 Colonoscopy completed Nida Nix [place] - [facility] & [place] 4 11:35:15 Imaging Results None recorded. Procedure Notes None recorded. Medical Equipment None Reported. Allergies Allergen ID Allergen Name Allergen Category Reaction Reaction Severity Criticality Documentation Date Start Date Code Code System Note Provider Name and Address Organization Details Recorded Time 51509 acetamino phen / oxycodone medicatio n itching Not available Not available 02/19/2023 99948 3 RxNorm Victorina dc [place] - [facility] & [place] 3 08:09:09 Medications Name Sig Start Date Stop Date Status Note LastModified by Organization Details LastModified Time celecoxib 200 mg capsule Take 200 mg by oral route. 11/01 completed Not Available Not Available Not Available fluoxetine 40 mg capsule 40 mg by oral route. active Not Available Not Available No t Available cyclobenzap rine 10 mg tablet Take 1 tablet PRN active Not Available Not Available No t Available atorvastati n 20 mg tablet Take 1 tablet every day by oral route. active Not Available Not Available No t Available Daily Multiple Vitamins with Iron tablet Take by oral route. active Not Available Not Available No t Available Neurontin 300 mg capsule active Not Available Not Available Not Available albuterol sulfate 2.5 mg/3 mL (0.083 %) solution for nebulizatio n 2.5 mg by inhalatio n route. 07/13 completed Not Available Not Available Not Available glycopyrrol ate 0.2 mg/mL injection solution 1 mg by injection route. 07/12 completed Not Available Not Available Not Available azithromyci n 250 mg tablet 05/28 completed Not Available Not Available Not Available Diprivan 10 mg/mL intravenous emulsion 400 mg by intraven. route. 07/12 completed Not Available Not Available Not Available lactated Ringers intravenous solution 1000 mL by intraven. route. 07/12 completed Not Available Not Available Not Available rocuronium 10 mg/mL intravenous solution 100 mg by intraven. route. 07/12 completed Not Available Not Available Not Available acetaminoph en 500 mg tablet 1000 mg by oral route. 07/12 completed Not Available Not Available Not Available hydralazine 20 mg/mL injection solution 10 mg by injection route. 07/13 completed Not Available Not Available Not Available droperidol 2.5 mg/mL injection solution 0.625 mg by injection route. 07/12 completed Not Available Not Available Not Available oxycodone-a cetaminophe n 5 mg-325 mg tablet 1 tablet by oral route. 07/09 completed Not Available Not Available Not Available Celebrex 100 mg capsule Take 1 capsule twice a day by oral route. 11/01 completed Not Available Not Available Not Available diphenhydra mine 50 mg/mL injection solution 25 mg by injection route. 07/13 completed Not Available Not Available Not Available Protonix 40 mg intravenous solution 40 mg by intraven. route. 07/12 completed Not Available Not Available Not Available hydrocodone 7.5 mg-acetamin ophen 325 mg tablet 02/19 completed Not Available Not Available Not Available cyanocobala min (vit B-12) 1,000 mcg/mL injection solution 1000 microgram s by injection route. 07/13 completed Not Available Not Available Not Available promethazin e 25 mg/mL injection solution 12.5 mg by injection route. 07/12 completed Not Available Not Available Not Available fentanyl (PF) 50 mcg/mL injection solution 50 microgram s by injection route. 07/12 completed Not Available Not Available Not Available omeprazole 20 mg capsule,del ayed release Take 1 capsule every day by oral route. active Not Available Not Available No t Available sodium chloride 0.9 % intravenous solution 50 mL by intraven. route. 07/12 completed Not Available Not Available Not Available dexamethaso ne sodium phosphate 4 mg/mL injection solution 4 mg by injection route. 07/13 completed Not Available Not Available Not Available scopolamine 1 mg over 3 days transdermal patch 1 mg by transderm . route. 07/12 completed Not Available Not Available Not Available methylpredn isolone 4 mg tablets in a dose pack 02/19 completed Not Available Not Available Not Available albuterol sulfate HFA 90 mcg/actuati on aerosol inhaler active Not Available Not Available Not Available Quelicin 20 mg/mL injection solution 200 mg by injection route. 07/12 completed Not Available Not Available Not Available cefdinir 300 mg capsule 05/28 completed Not Available Not Available Not Available fluoxetine 20 mg capsule 40 mg by oral route. 07/134 completed Not Available Not Available Not Available fluticasone propionate 50 mcg/actuati on nasal spray,suspe nsion Take 1 spray each nostril daily active Not Available Not Available No t Available IC Green 25 mg solution for injection 25 mg by injection route. 07/12 completed Not Available Not Available Not Available naproxen 500 mg tablet Take 1 tablet PRN 07/07 completed Not Available Not Available Not Available simethicone 80 mg chewable tablet 80 mg by oral route. 07/12 completed Not Available Not Available Not Available buspirone 15 mg tablet 15 mg by oral route. active Not Available Not Available No t Available midazolam 1 mg/mL injection solution 2 mg by injection route. 07/12 completed Not Available Not Available Not Available enoxaparin 80 mg/0.8 mL subcutaneou s syringe Inject 0.8 mL every 12 hours by subcutane ous route as directed for 3 days. 11/01 completed Not Available Not Available Not Available enoxaparin 40 mg/0.4 mL subcutaneou s syringe 40 mg by sub-q route. 07/12 completed Not Available Not Available Not Available hydromorpho ne 1 mg/mL injection syringe 1 mg by injection route. 07/12 completed Not Available Not Available Not Available fentanyl (PF) 50 mcg/mL injection syringe 25 microgram s by injection route. 07/12 completed Not Available Not Available Not Available bupivacaine (PF) 0.25 % (2.5 mg/mL) injection solution 30 mL by injection route. 07/12 completed Not Available Not Available Not Available buprenorphi ne HCl 0.3 mg/mL injection solution 0.3 mg by injection route. 07/12 completed Not Available Not Available Not Available sodium chloride 0.9 % intravenous piggyback 50 mL by intraven. route. 07/12 completed Not Available Not Available Not Available Demerol (PF) 25 mg/mL injection syringe 12.5 mg by injection route. 07/12 completed Not Available Not Available Not Available vitamin A active Not Available Not Tirsta ilable Not Available B Complex active Not Available Not Trista ilable Not Available calcium citrate active Not Available Not Available Not Available Vitamin D3 active Not Available Not Av ailable Not Available lidocaine (PF) 20 mg/mL (2 %) injection solution 10 mL by injection route. 07/12 completed Not Available Not Available Not Available ondansetron HCl (PF) 4 mg/2 mL injection solution 4 mg by injection route. 07/12 completed Not Available Not Available Not Available BD PosiFlush Normal Saline 0.9 % injection syringe 10 mL by injection route. 07/13 completed Not Available Not Available Not Available sodium,pota ssium,mag sulfates 17.5 gram-3.13 gram-1.6 gram oral soln Take 2 packages by oral route as directed for 2 days. 02/04 completed Not Available Not Available Not Available prochlorper azine edisylate 10 mg/2 mL (5 mg/mL) injection solution 5 mg by injection route. 07/13 completed Not Available Not Available Not Available Eliquis 5 mg tablet active Not Available Not Available No t Available morphine 4 mg/mL intravenous syringe 4 mg by intraven. route. 07/12 completed Not Available Not Available Not Available Bridion 100 mg/mL intravenous solution 500 mg by intraven. route. 07/12 completed Not Available Not Available Not Available ephedrine sulfate 50 mg/mL intravenous solution 50 mg by intraven. route. 07/12 completed Not Available Not Available Not Available Wegovy 1 mg/0.5 mL subcutaneou s pen injector 02/04 completed Not Available Not Available Not Available Wegovy 0.25 mg/0.5 mL subcutaneou s pen injector 05/28 completed Not Available Not Available Not Available cefazolin 2 gram solution for injection 2 g by injection route. 07/12 completed Not Available Not Available Not Available cefazolin 2 gram intravenous solution 2 g by intraven. route. 07/12 completed Not Available Not Available Not Available Vitals Date Recorded Body height Body mass index (BMI) Body weight Body temperature Oxygen saturation Oxygen saturation in Arterial blood by Pulse oximetry Heart rate Systolic blood pressure Diastolic blood pressure Provider Name and Address Organization Details Last Updated DateTime 4 152.4 cm 43.8 kg/m2 508561. 05 g 97.8 [degF] 97 % 97 % 54 /min 108 mm[Hg] 59 mm[Hg] [place] [facility] & [place] 4 13:34:48 Date Recorded Body height Body mass index (BMI) Body weight Heart rate Body temperature Systolic blood pressure Diastolic blood pressure Provider Name and Address Organization Details Last Updated DateTime 4 152.4 cm 43.1 kg/m2 044984. 12 g 65 /min 97.8 [degF] 118 mm[Hg] 82 mm[Hg] [facility] & [place] 4 09:04:56 Date Recorded Body height Body mass index (BMI) Body weight Body temperature Heart rate Oxygen saturation Oxygen saturation in Arterial blood by Pulse oximetry Systolic blood pressure Diastolic blood pressure Provider Name and Address Organization Details Last Updated DateTime 4 152.4 cm 41.9 kg/m2 17126.9 2 g 97.6 [degF] 55 /min 96 % 96 % 119 mm[Hg] 69 mm[Hg] [place] [facility] & [place] 4 14:42:51 Date Recorded Body height Body mass index (BMI) Body weight Heart rate Body temperature Systolic blood pressure Diastolic blood pressure Provider Name and Address Organization Details Last Updated DateTime 4 152.4 cm 39.3 kg/m2 48538.7 8 g 52 /min 97.9 [degF] 137 mm[Hg] 89 mm[Hg] Nida Nix [place] [facility] & [place] 4 11:33:12 Date Recorded Body height Heart rate Body temperature Body mass index (BMI) Body weight Systolic blood pressure Diastolic blood pressure Provider Name and Address Organization Details Last Updated DateTime 4 152.4 cm 54 /min 97.8 [degF] 36.4 kg/m2 60820.3 4 g 131 mm[Hg] 83 mm[Hg] Nida Nix [facility] & [place] 10:02:00 Social History Question Answer Notes LastModified by [employer]riv[employer] Details LastModified Time Tobacco Smoking Status Never Smoker Victorina Gonzalez [facility], [facility] & [place] 02/19/2023 08:09:56 Do You Have An Advance Directive? No Information not available 05/28/2023 Are You Blind Or Do You Have Difficulty Seeing? No Information not available 05/28/2023 What Was The Date Of Your Most Recent Tobacco Screening? 02/18/2023 Information not available 05/28/2023 Are You Passively Exposed To Smoke? Yes Information not available 05/28/2023 Sex: Unknown Functional Status Question Answer Note LastModified by [employer]riv[employer] Details LastModified Time Do you use any illicit or recreational drugs? No [email or web address] Information not available 02/19/2023 What is your level of alcohol consumption? None Information not available 05/28/2023 What is your exercise level? Moderate Information not available 05/28/2023 Mental Status Question Answer Note LastModified by Organization D etails LastModified Time Do you feel stressed (tense, restless, nervous, or anxious, or unable to sleep at night)? [id number] Information not available 05/28/2023 Family History Relationship Description Onset Age of this Age Resolved Age Notes LastModified by Organization Details LastModified Time Father Myocardial infarction pt. added direct ly (02/18) [email or web address] Not available 02/18/2023 13:30:28 Medical History Condition Response Anxiety Disorder Y Diabetes N Bleeding Disorder N Obesity Y Arthritis Y Hyperthyroidism N Reflux/GERD N Sleep Apnea N High Cholesterol N Liver Disease N Heart Disease N Pulmonary Embolism N Headaches Y Deep Vein Thrombosis N Hypertension N Kidney Disease N Gynecological History Statement/Question Response Menses Monthly N Date of Last Pap Smear 03/02/1998 Date of LMP 04/02/1998 Sexually Active? Y Obstetrics History GPAL:G 0 P 0 0 0 0 Immunizations Vaccine Type Date Status Note Provider Nam e and Address Organization Details Recorded Time influenza, unspecified formulation 03/19/2023 completed Nida dc, [facility] [place] & [place] 08/12/2023 09:06:19 Past Encounters Encounter ID Performer Location Encounter Start Date Encounter Closed Date Diagnosis/Indication Diagnosis SNOMED-CT Code Diagnosis ICD10 Code Diagnosis Note [id number] [facility] [address] [place] [address] [facility] [id number] 02/19/2023 07:47:34 02/19/2023 10:43:20 Obesity 504111002 E66.9 Weight loss surgery options discussed at length with patient today. We discussed sleeve versus BPD/duoden al switch/ JU-S. I feel like the best surgery option for this patient is BPD/duoden al switch/ JU-S given current BMI and comorbidit iesThe patient will be scheduled for the following. Initial intake lab work, cardiac clearance, and EGD. All risks complicati ons and alternativ es of the upper endoscopy were discussed with the patient and agreed upon. These include but are not limited to, over sedation, bleeding, perforatio n.Patient will be educated by the surgical weight loss team regarding if any medical managed weight loss will be required and they will follow this according to their recommenda tions.jumana ent will follow-up in office after all testing has been completed Body mass index 40+ - severely obese 507836168 Z68.42 Disorder o f function of stomach 518019686 K31.89 Pain of mu ltiple joints 56991025 M25.50 [id number] HÉCTOR ARAUZ RDN, LD [facility] [address] [place] [address] [facility] [place], [place] [id number] 02/19/2023 10:42:07 02/19/2023 14:17:23 Morbid obesity 114347245 E66.01 BMI = 48.6 Overeating 28319470 R63. 2 Pt reports she overeats portions of foods - reports working to decrease this Predicted inadequate nutrient intake 221370401 Z91.89 Pt reports selective eating and does not eat a variety of sides, though there are some fruits and vegetables included. Pt is willing to work on broadening her palate. [id number] KATARINA BYRNE NP [facility] [address] [place] [address] 05/28/2023 14:00:53 05/28/2023 15:20:53 Body mass index 40+ - severely obese 605075676 Z68.42 Now considerin g surgery.Lo w-carbohyd rate and low-fat dietIncrea se exercise to 30 minutes a day.Increa se fruits and fresh vegetable intake and decrease processed foods and sugarsPCP can considerin g referring to sleep study after weight loss surgery if there are still concerns for sleep apnea Hyperlipidemia 62762808 E78.5 Start statinLow fat/carboh ydrate dietIncrea se exerciseLo se weightPCP may manage Preoperati ve cardiovascular examination 964915859 Z01.810 Good functional capacity with no prior cardiac history. Patient is low risk for cardiovasc ular complicati ons. ECG completed today in office and personally reviewed and interprete d: No further cardiac testing warranted at this point. No need to return to clinic unless cardiac concerns presents or patient wishes to Bilateral lower limb edema 319554220 R60.0 compressio n stockingsw eight lossexerci se [id number] MAIRA LOVE RD, LD [facility] n [facility] [address] [place] [address] 05/28/2023 14:54:19 07/31/2023 03:57:07 Morbid obesity 287852692 E66.01 BMI 47.8 Weight loss of 3.8 pounds Hyperlipidemia 16491555 E78.5 [id number] KATARINA QUIÑONES MD [facility] n [facility] [address] [place] [address] 07/08/2023 07:28:16 07/08/2023 14:11:26 Morbid obesity 914362268 E66.01 Pre-surger y evaluation 710315256 Z01.818 Postoperative pain 62462 9007 G89.18 Hyperlipidemia 26451464 E78.5 Anxiety 15085684 F41.9 [id number] [facility] [address] [place] [address] 07/21/2023 07:51:50 07/21/2023 10:26:22 History of gastrectomy 766659772 Z90.3 s/p JU-sOver all patient is doing well. Advised patient to continue focus on high-prote in diet. Advised minimum 70 g of protein and 7-800 calories daily. We will see patient in follow-up 3 weeks. Patient is to contact our office sooner for any concerns. Deep venou s thrombosis of upper extremity 735043761 I82.629 Patient is to continue Eliquis. We will make referral to Hematology Dr. Ramos for continued management . [id number] MYRTLE Alas [facility] Adv S[facility] [address] [place] [address] 08/12/2023 08:51:42 08/12/2023 14:06:49 Intentional weight loss 408863298 R63.8 Patient is doing well status post Toño-en-Y gastric bypass. She is to continue focus on high-prote in diet with minimum 70-80 g of protein and 1000 calories encouraged good hydration patient is to see dietitian today for typical one-month postoperat shun dietary support History of gastrectomy 215451662 Z90.3 We discussed diet and the importance of adequate protein. Encouraged patient to continue focus on adequate protein/ca lories/hyd ration. Patient is to see dietitian today for typical 1 month postoperat shun dietary support.Co ntinue PPI and vitamins.E ncouraged routine exercise. Advised exercising such that maintain target HR x 20 min 3dy/wkFoll ow-up 2 months Patient is status post bariatric surgery and at increased risk for vitamin deficienci es and malnutriti on. Bariatric vitamin panel ordered today. Patient will be contacted to correct any vitamin deficienci es. At [facility] risk of nutritional deficit 925235753 Z91.89 Abdominal pain 94790494 R10.9 Discussed 2-3 week course of probiotic. Patient is to continue focus on high-prote in diet. Advised she be mindful of which foods may trigger abdominal cramping. Encouraged adequate hydration She is to call for any worsening abdominal symptoms. Upper GI may be warranted if patient's symptoms persist or worsen. [id number] MAIRA LOVE RD, LD [facility] [address] [place] [address] 08/12/2023 09:32:14 08/12/2023 14:12:29 Morbid obesity 562930318 E66.01 BMI 43.1 wt loss 17.6# [id number] Nicole Ordonez PA-C [facility] [address] [place] [address] 08/12/2023 13:11:51 08/12/2023 14:30:51 Deep venous thrombosis 162809849 I82.409 Patient had bariatric surgery July 13, 2023. She developed right upper extremity pain and swelling July 17, 2023 and went to [facility] ED for evaluation . She was found to have DVT right upper extremity extending from proximal ulnar vein into basilic vein. She did have an IV in this arm when she had her bariatric surgery. Patient was started on Eliquis. Patient has no previous history of a blood clot. Her brother and sister have had blood clots. Patient does not smoke. She has not on control. She had a hysterecto my at age 23. 2 maternal aunts had breast cancer. She states her uncle had a malignancy but she is unsure what. No other family history malignancy . Discussed genetic testing Due to family history of malignancy . Patient is agreeable. Will order [employer] today. Patient is due for mammogram. Will schedule. She has never had screening colonoscop y. Will refer to [facility] for screening colonoscop y. She does not smoke. She is not on control. Will order hypercoagu lable evaluation today. Discussed blood clot possibly secondary to recent surgical procedure. Will follow up with further recommenda tions. History of bariatric surgical procedure 544897304 Z98.84 Patient had bariatric surgery July 13, 2023. Patient continues to follow-up with her bariatric provider. She states she had labs checked this morning Anticoagulant therapy 18 0507012 Z79.01 Patient had bariatric surgery July 13, 2023. She developed right upper extremity pain and swelling July 17, 2023 and went to [facility] ED for evaluation . She was found to have DVT right upper extremity extending from proximal ulnar vein into basilic vein. She did have an IV in this arm when she had her bariatric surgery. Patient was started on Eliquis. Discussed will continue Eliquis for at least 3 months pending hypercoagu lable evaluation today. Will follow up with further recommenda tions. Screening mammography 24 436778 Z12.31 Patient is due for mammogram. Will schedule. Screening colonoscopy 44 3354694 Z12.11 Patient has never had screening colonoscop y. Will refer to [facility] for screening colonoscop y. [id number] Nicole Ordonez PA-C [facility] [address] [place] [address] 09/14/2023 14:34:22 09/14/2023 15:23:25 Deep venous thrombosis 419938347 I82.409 Patient had bariatric surgery July 13, 2023. She developed right upper extremity pain and swelling July 17, 2023 and went to [facility] ED for evaluation . She was found to have DVT right upper extremity extending from proximal ulnar vein into basilic vein. She did have an IV in this arm when she had her bariatric surgery. Patient was started on Eliquis. Patient has no previous history of a blood clot. Her brother and sister have had blood clots. Patient does not smoke. She has not on control. She had a hysterecto my at age 23. 2 maternal aunts had breast cancer. She states her uncle had a malignancy but she is unsure what. No other family history malignancy . Discussed genetic testing Due to family history of malignancy . Patient is agreeable. Will order Invitae today. Patient is due for mammogram. Will schedule. She has never had screening colonoscop y. [facility] She does not smoke. She is not on control. Hypercoagu lable evaluation on August 12, 2023 with no Factor 5 Leiden mutation. Normal antithromb in 3. Protein C. Protein S low at 45. Will repeat protein S level today. Prothrombi n and factor 8 ordered but not performed by the lab. Discussed will continue with Eliquis due to protein S deficiency . Will order labs today. Will follow-up with further recommenda tions. History of bariatric surgical procedure 544542862 Z98.84 Patient had bariatric surgery July 13, 2023. Patient continues to follow-up with her bariatric provider. She states she had labs checked this morning Anticoagulant therapy 18 7247728 Z79.01 Patient had bariatric surgery July 13, 2023. She developed right upper extremity pain and swelling July 17, 2023 and went to [facility] ED for evaluation . She was found to have DVT right upper extremity extending from proximal ulnar vein into basilic vein. She did have an IV in this arm when she had her bariatric surgery. Patient was started on Eliquis. Discussed will continue Eliquis for at least 3 months pending hypercoagu lable evaluation today. Will follow up with further recommenda tions. Screening mammography 24 273375 Z12.31 Patient is due for mammogram. Will schedule. Screening colonoscopy 44 7120966 Z12.11 Patient has never had screening colonoscop y. Will refer to [facility] for screening colonoscop y. [id number] MYRTLE Alas [facility] Adv S[facility] [address] [place] [address] 11/02/2023 11:17:46 11/04/2023 16:02:44 Intentional weight loss 498074441 R63.8 Patient is doing well with weight loss status post SadiS. Encouraged patient to continue focus on high-prote in diet. Advised minimum 70 g of protein and 900-1100 calories daily. Encouraged good hydration and exercise. Follow-up 3 months History of gastrectomy 817721835 Z90.3 Advised qid intake 50% protein 1000 calories/d y less than 100 carbs/dyLo ng discussion today of [employer] results including PBF(percen t body fat) SMM (skeletal muscle mass) Visceral fat level level BMR Segmental Fat Analysis and Segmental Lean Analysis.E ncouraged pt to take minimal calories as per BMR and to anticipate changes in SMM and PBF values not just total weight.Fol low-up with Repeat DWIGHT in 3mth suggested Patient is status post bariatric surgery and at increased risk for vitamin deficienci es and malnutriti on. Bariatric vitamin panel ordered today. Patient will be contacted to correct any vitamin deficienci es. At [facility] risk of nutritional deficit 355472926 Z91.89 Vitamin D deficiency 347 48337 E55.9 Patient is to continue vitamin supplement ation. We are rechecking bariatric vitamins and will contact patient to correct any deficiency Hyperlipidemia 00584579 E78.5 Expect improvemen t with weight loss. Patient is not fasting for labs today. We will recheck lipid panel at next office visit or patient may have checked through PCP [id number] MYRTLE Alas [facility] Bariatric s and Adv Surg [address] [place] [address] 02/05/2024 09:54:47 02/05/2024 11:01:21 Intentional weight loss 443837808 R63.8 Patient is doing well with weight loss status post SadiS.Enco uraged patient to continue focus on high-prote in diet.Incon sistent work schedule/e ating schedule may be contributi ng to weight loss slowing. Also patient admits to decreased calories lately. 600-800cal ories as likely too low. Advised minimum 70 g of protein and 900-1100 calories daily.Jumana ent is to meet with dietitian today for typical six-month postoperat shun dietary educationE ncouraged good hydration and exercise. Follow-up 3 months Vitamin D deficiency 347 21069 E55.9 Patient is to continue vitamin supplement ation.We will recheck bariatric panel at next office visit April 2024 History of gastrectomy 103330872 Z90.3 Advised qid intake 50% protein 1000 calories/d y less than 100 carbs/dyLo ng discussion today of [employer] results including PBF(percen t body fat) SMM (skeletal muscle mass) Visceral fat level level BMR Segmental Fat Analysis and Segmental Lean Analysis.E ncouraged pt to take minimal calories as per BMR and to anticipate changes in SMM and PBF values not just total weight.Fol low-up with Repeat DWIGHT in 3mth suggested Patient is status post bariatric surgery and at increased risk for vitamin deficienci es and malnutriti on. Bariatric vitamin panel ordered today. Patient will be contacted to correct any vitamin deficienci es. Deep venou s thrombosis of upper extremity [id number] I82.629 Chronic anticoagul ation with Eliquis [id number] [facility] Bariatric s and Adv Surg [address] [facility] [address] [place] [address] 02/05/2024 10:29:47 02/05/2024 10:58:17 Dietary management surveillance [id number] Z71.3 see recommenda tions for discussion and plan Health Concerns Section Related Observation LastModified by Organization Detai ls LastModified Time None Recorded Concern Status LastModified by Organization Details LastModified Time None Recorded Advance Directives Directive N: Payers Insurance Date Sequence Insurance Name Policy Number Policy Canales Covered Member ID Canales Member ID Guarantor Name 04/11/2024 1 [id number] Jessica Clara Tony [id number] Jessica Jimenez Notes Date Note Type Note Provider Name and Address Organization Details Recorded Time 08/12/2023 text/html 43-year-old senia hilario presents for evaluation of DVT. Patient had bariatric surgery July 13, 2023. She developed right upper extremity pain and swelling July 17, 2023 and went to [facility] ED for evaluation. She was found to have DVT right upper extremity extending from proximal ulnar vein into basilic vein. She did have an IV in this arm when she had her bariatric surgery. Patient was started on Eliquis. Patient has no previous history of a blood clot. Her brother and sister have had blood clots. Patient does not smoke. She has not on control. She had a hysterectomy at age 23. 2 maternal aunts had breast cancer. She states her uncle had a malignancy but she is unsure what. No other family history malignancy. Discussed genetic testing Due to family history of malignancy. Patient is agreeable. Will order Inv[employer]ae today. Patient is due for mammogram. Will schedule. She has never had screening colonoscopy. Will refer to Gastroenterology for screening colonoscopy. She does not smoke. She is not on control. Will order hypercoagulable evaluation today. Discussed blood clot possibly secondary to recent surgical procedure. Will follow up with further recommendations. Nicole Ordonez PA-C [address], [place], [address], [facility] - [place] - [place] & [place] 08/12/2023 15:43:25 08/12/2023 text/html Patient presents for 1mth Post-Op Check s/p 07/13/23 JU-s.Patient presents the office today for routine follow-up status post bariatric surgery. Patient doing well. Reports q.i.d. small meal intake. Reports 70-85g/dy protein intake and good hydration. Daily Calories 7-800Taking routine vitamins as advised.Heartburn/gas troesophageal reflux:Patient does report abdominal cramping. This is after eating and is in lower abdominal area. She reports mostly loose stools. Denies nausea and vomiting. Tolerating p.o. intake of fluids as well as scrambled eggs.Total Weight loss 18 lbPt is happy with their quality of life after Weight loss Surgery. 1mth post op - Patient was seen at [facility] ED on 07/17/2023 for right arm pain and swelling. She was found to have DVT right upper extremity extending from proximal ulnar vein into basilic vein. Patient was started on Eliquis. She was told to follow-up with our office and PCP. Patient has no previous history of DVT/coagulopathyPatie nt is doing well. Tolerating PO intake w/out issue. Getting 60g/dy protein. Pt reports good hydration. Taking recommended vitamins and PPI.Pt Denies : abdominal pain, prandial issues Nausea, Vomiting, bowel or bladder issuesPath benignPt is happy with their quality of life after Weight loss Surgery. MYRTLE Alas [address], [place], [address], [facility] - [facility] - [place] & [place] 08/12/2023 11:05:41 08/12/2023 text/html ADIME TemplateA: RDN met w/Jessica Jimenez for 1 mo f/up via office visit s/p Adilene. Pt weight at MD Consult: 238.1#Current Weight: 220.5#Total Weight Change: -17.6#Notes on weight: Signs/SymptomsN/V/C/D : diarrhea Pertinent Labs/Meds/Vitamin regimen: Taking vitamins as recommended Physical activity: walking Tracking food/beverages consumed: Est. daily kcal intake: 800-1000 Est. daily protein intake: 85 gm Est. daily fluid intake: 64 oz Meal Pattern: Eating every 2 hours Additional notes/concerns: Patient states she is having stomach pain and diarrhea. I: RDN Recommendations/Goals :1. Continue to eat every two hours2. Add probiotic3. Try increasing fiber to 25gm/day4. Physical activity 3 times a week for 20 minutes Pt verbally agreed to recommendations and goals. Denied further questions/concerns. M/E: RD will monitor weight loss, labs, and lifestyle modifications. Will f/up as scheduled or PRN. . MAIRA LOVE RD, LD [address], [place], [address], [facility] & [place] 08/12/2023 09:42:32 09/14/2023 text/html 43-year-old fema yanelis presents for evaluation of DVT. Patient had bariatric surgery July 13, 2023. She developed right upper extremity pain and swelling July 17, 2023 and went to [facility] ED for evaluation. She was found to have DVT right upper extremity extending from proximal ulnar vein into basilic vein. She did have an IV in this arm when she had her bariatric surgery. Patient was started on Eliquis. Patient has no previous history of a blood clot. Her brother and sister have had blood clots. Patient does not smoke. She has not on control. She had a hysterectomy at age 23. 2 maternal aunts had breast cancer. She states her uncle had a malignancy but she is unsure what. No other family history malignancy. Discussed genetic testing Due to family history of malignancy. Patient is agreeable. Will order Invitae today. Patient is due for mammogram. Will schedule. She has never had screening colonoscopy. Will refer to Gastroenterology for screening colonoscopy. She does not smoke. She is not on control. Hypercoagulable evaluation on August 12, 2023 with no Factor 5 Leiden mutation. Normal antithrombin 3. Protein C. Protein S low at 45. Will repeat protein S level today. Prothrombin and factor 8 ordered but not performed by the lab. Discussed will continue with Eliquis due to protein S deficiency. Will order labs today. Will follow-up with further recommendations. Nicole Ordonez PA-C [address], [place], [address], [facility] & [place] 09/14/2023 15:35:50 11/02/2023 text/html Patient presents for 3mth Post-Op Check s/p 07/13/23 JU-s.Patient presents the office today for routine follow-up status post bariatric surgery. Patient doing well. Reports q.i.d. small meal intake. Reports >70g/dy protein intake and good hydration. Daily Calories 800-1100Taking routine vitamins as advised. Hx of vitamin-D deficiencyPast medical history includes hyperlipidemia. Patient is not fasting for labs todayHeartburn/gastro esophageal reflux: Controlled well on daily PPIPt Denies : abdominal pain, prandial issues Nausea, Vomiting, bowel or bladder issuesTotal Weight loss 37 lb of which 8 skeletal muscle mass. BMI 39.3 with 52% body fat skeletal muscle 52.7 lb which is a 115% predicted basal metabolic rate 1315Pt is happy with their quality of life after Weight loss Surgery. @3mth post op -Patient presents the office today for routine follow-up status post bariatric surgery. Patient doing well. Reports q.i.d. small meal intake. Reports 70-85g/dy protein intake and good hydration. Daily Calories 7-800Taking routine vitamins as advised.Heartburn/gas troesophageal reflux:Patient does report abdominal cramping. This is after eating and is in lower abdominal area. She reports mostly loose stools. Denies nausea and vomiting. Tolerating p.o. intake of fluids as well as scrambled eggs.Total Weight loss 18 lbPt is happy with their quality of life after Weight loss Surgery. @1mth post op - Patient was seen at [facility] ED on 07/17/2023 for right arm pain and swelling. She was found to have DVT right upper extremity extending from proximal ulnar vein into basilic vein. Patient was started on Eliquis. She was told to follow-up with our office and PCP. Patient has no previous history of DVT/coagulopathyPatie nt is doing well. Tolerating PO intake w/out issue. Getting 60g/dy protein. Pt reports good hydration. Taking recommended vitamins and PPI.Pt Denies : abdominal pain, prandial issues Nausea, Vomiting, bowel or bladder issuesPath benignPt is happy with their quality of life after Weight loss Surgery. MYRTLE Alas [address], [place], [address], [facility] - [place] & [place] 11/02/2023 11:49:26 02/05/2024 text/html Patient presents for Post-Op Check s/p 07/13/23 JU-s.Patient presents the office today for routine follow-up status post bariatric surgery. Patient doing well. Reports q.i.d. small meal intake. Reports >70g/dy protein intake and good hydration. Daily Calories 600-800Taking routine vitamins as advised. Hx of vit D deficiency November labs reviewed again today and within normal limits. Patient wishes to wait on additional labs until April visit.Heartburn/gastr oesophageal reflux: Controlled well on daily omeprazolePt Denies : abdominal pain, prandial issues Nausea, Vomiting, bowel or bladder issuesPatient has history of DVT after weight loss surgery. She has been seen by Hematology and told she would need to stay onchronic anticoagulation with Eliquis.Total Weight loss 52 lb she is lost 15 lb since last office visit. Patient is concerned regarding weight loss slowing. She feels rotating work schedule may be contributing to this.In body today shows BMI 36.4 with 50.2% body fat skeletal muscle 50.5 which is 110% predicted basal metabolic rate 1280Pt is happy with their quality of life after Weight loss Surgery. 11/02/23 OV - Patient presents the office today for routine follow-up status post bariatric surgery. Patient doing well. Reports q.i.d. small meal intake. Reports >70g/dy protein intake and good hydration. Daily Calories 800-1100Taking routine vitamins as advised. Hx of vitamin-D deficiencyPast medical history includes hyperlipidemia. Patient is not fasting for labs todayHeartburn/gastro esophageal reflux: Controlled well on daily PPIPt Denies : abdominal pain, prandial issues Nausea, Vomiting, bowel or bladder issuesTotal Weight loss 37 lb of which 8 skeletal muscle mass. BMI 39.3 with 52% body fat skeletal muscle 52.7 lb which is a 115% predicted basal metabolic rate 1315Pt is happy with their quality of life after Weight loss Surgery. @3mth post op -Patient presents the office today for routine follow-up status post bariatric surgery. Patient doing well. Reports q.i.d. small meal intake. Reports 70-85g/dy protein intake and good hydration. Daily Calories 7-800Taking routine vitamins as advised.Heartburn/gas troesophageal reflux:Patient does report abdominal cramping. This is after eating and is in lower abdominal area. She reports mostly loose stools. Denies nausea and vomiting. Tolerating p.o. intake of fluids as well as scrambled eggs.Total Weight loss 18 lbPt is happy with their quality of life after Weight loss Surgery. @1mth post op - Patient was seen at [facility] ED on 07/17/2023 for right arm pain and swelling. She was found to haveDVTright upper extremity extending from proximal ulnar vein into basilic vein. Patient was started on Eliquis. She was told to follow-up with our office and PCP. Patient has no previous history of DVT/coagulopathyPatie nt is doing well. Tolerating PO intake w/out issue. Getting 60g/dy protein. Pt reports good hydration. Taking recommended vitamins and PPI.Pt Denies : abdominal pain, prandial issues Nausea, Vomiting, bowel or bladder issuesPath benignPt is happy with their quality of life after Weight loss Surgery. MYRTLE Alas [address], [place], [address], [facility] - [place] & [place] 02/05/2024 10:33:53 02/05/2024 text/html RDN met w/ pt fo r 6 month f/up s/p JU-S. Pt weight at MD Consult: 238.1#Current Weight: 186.6#Total Weight Change: 51.5# loss Notes on weight: desires continued weight loss at this time Inbody measurements:Muscle mass%: 52.7 to 50.5Body fat% 52.1 to 50.2BMR: 1280 Signs/SymptomsN/V/C/D : denies - going to the bathroom every 2-3 days Meds and labs reviewed.Notes - taking vitamins as ordered - some chewables and some pills - doesn't do well with chewables Physical activity: walk daily (1-2 miles per day), stationary bike (does sometimes during work) Tracking meal intakes: was tracking with [employer] mikal and has not been lately Est. daily kcal intake: 600-800 Est. daily protein intake: 80+ Est. daily fluid intake: 48 oz of just water Meal Frequency/Pattern: doesn't like a lot of foods, like fruit, likes some veggiesprotein foods: chicken, tuna, pork chops, does not like fish, egg whites, protein chips, yogurt daily, brown beans, doesn't like cottage cheese, cheese cubes, deli meats Drinks: premier protein shakes 2x/day, doesn't like drinking plain water Foods Not Tolerated: meat doesn't sit well with her Additional notes/concerns: has a hectic work schedule LAMIN SHARPE, RD [address], [place], [address], [facility] - [facility] - [place] & [place] 02/05/2024 10:58:01 OBGyn Episode No OBEpisode recorded.
== END 2024-09-30 23:59 | disposition home or self-care (01) ==
LOC: LAB.DROPOF 10-03 09:34
PROVIDERS: PCP Family Medicine; Visit Provider Family Medicine
DX: R07.9 Chest pain, unspecified (principal)
CPT/HCPCS: 80061

== ENCOUNTER 2024-11-11 07:31 | Outpatient (CLI) | payer BC, SELFPAY ==
--- OUTSIDE RECORDS SUMMARY | 2024-11-11 07:34 | XMS_ITS | Data Portability ---
Author Organization ME - [facility] - [place] [facility] ADMIN Address [address] [place] [id number] Care Team Providers Care Brim Stiffener Name Role Phone MIRTHA VAUGHN Primary Care Provider [phone] Assessment Encounter Date Assessment Date Assessment LastModified [...] protein focused snacks in between 7. Download [employer] mikal to start tracking meals 8. F/U with RD in 3 months Pt doing well overall. Addressed concerns today. Pt was reassured at today's visit. Pt verbally agreed to recommendations and goals. Denied further questions/concerns . RDN will monitor weight loss, labs, meds, and lifestyle modifications. Will f/up as scheduled or PRN. [email or web address] Not available 02/05/2024 10:57:29 Plan of Treatment Reminders Order Date Submit Date Provider Last Modified By Organization Details Last Modified Time Details Appointments None recorde d. Lab vitamin D, 25-hydr oxy, total, serum 11/01/ 024 ERIN [facility], [address], [address], [place], [address], 07/07/202 4 18:36:17 prealbu min, serum 2023 024 LEXIE [facility], [address], [address], [place], [address], 4 18:36:19 thiamin e, QN, blood 2023 024 LEXIE [facility], [address], [address], [place], [address], 4 18:36:17 methylm alonate , QN, serum or plasma 2023 024 LEXIE [facility], [address], [address], [place], [address], 4 18:36:18 copper, serum or plasma 2023 024 LEXIE [facility], [address], [address], [place], [address], 4 18:36:18 vaishnavi jerez ative, blood 2023 024 LEXIE [facility], [address], [address], [place], [address], 4 18:36:20 zinc, serum or plasma 2023 024 LEXIE [facility], [address], [address], [place], [address], 4 18:36:19 CBC w/ auto diff 2023 024 LEXIE [facility], [address], [address], [place], [address], 4 18:36:14 CMP, serum or plasma 2023 024 LEXIE [facility], [address], [address], [place], [address], 4 18:36:15 iron + TIBC + ferriti n, serum 2023 024 ERIN [facility], [address], [address], [place], [address], 4 18:36:13 folate, serum 2023 024 LEXIE [facility], [address], [address], [place], [address], 4 18:36:16 vitamin E, serum 2023 024 LEXIE [facility], [address], [address], [place], [address], 4 18:36:15 vitamin A (retino l), serum 2023 024 ERIN [facility], [address], [address], [place], [address], 4 18:36:16 TSH + free T4, serum 2023 024 ERIN [facility], [address], [address], [place], [address], 4 18:36:14 CBC w/ auto diff 2023 024 [facility] (Registration), [address], [place], [address], 4 17:58:49 prothro mbin (factor II) [id number] mutatio n, blood 2023 024 [email or web address] 6 [facility] (Registration), [address], [place], [address], 4 11:36:09 factor VIII activit y, plasma 2023 024 [email or web address] 6 [facility] (Registration), [address] , [place], [address], 4 08:57:56 protein S activit y, plasma 2023 024 [email or web address] 6 [facility] (Registration), [address] , [place], [address], 4 08:57:56 CMP, serum or plasma 2023 024 [facility] (Registration), [address] , [place], [address], 4 18:30:47 CBC w/ auto diff 2023 024 LEXIE [facility], [address], [address], [place], [address], 4 16:25:11 CMP, serum or plasma 2023 024 LEXIE [facility], [address], [address], [place], [address], 4 16:51:28 prealbu min, serum 2023 024 LEXIE [facility], [address], [address], [place], [address], 4 04:37:26 thiamin e, QN, blood 2023 024 LEXIE [facility], [address], [address], [place], [address], 4 04:37:24 iron + TIBC + ferriti n, serum 2023 024 LEXIE [facility], [address], [address], [place], [address], 4 04:37:17 folate, serum 2023 024 LEXIE [facility], [address], [address], [place], [address], 4 04:37:22 vitamin D, 25-hydr oxy, total, serum 2023 024 LEXIE [facility], [address], [address], [place], [address], 4 04:37:24 vitamin E, serum 2023 024 LEXIE [facility], [address], [address], [place], [address], 4 04:37:21 vitamin A (retino l), serum 2023 024 LEXIE [facility], [address], [address], [place], [address], 4 04:37:23 TSH + free T4, serum 2023 024 LEXIE [facility], [address], [address], [place], [address], 4 04:37:18 methylm alonate , QN, serum or plasma 2023 024 LEXIE [facility], [address], [address], [place], [address], 4 04:37:25 magnesi um, blood 2023 024 [email or web address] [facility] (Registration), [address], [place], [address], 4 13:33:41 phospho edmund, serum or plasma 2023 024 [email or web address] [facility] ([facility]), [address], [place], [address], 4 13:33:42 Referral gastroe nterolo gist referra l 2023 024 [email or web address] 6 [facility], [address], [address], [place], [address], 4 09:15:52 Procedures None recorde d. Surgeries None recorde d. Imaging None recorde d. Medication Orders None recorde d. Patient TargetsNo targets recorded. Patient InstructionsNo instructions recorded. 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 4 Not Available [facility] ([facility]) [address], [place], [address], 08/12/2023 16:25:11 08/12/19 24 08/12/2023 CBC AUTO W DIFF HGB 12.0 gm/dL 12.5-1 6.0 low Not Available [facility] ([facility]) [address], [place], [address], 08/12/2023 16:25:11 08/12/19 24 08/12/2023 CBC AUTO W DIFF HCT 37.4 % 37.0-4 7.0 Not Available [facility] ([facility]) [address], [place], [address], 08/12/2023 16:25:11 08/12/19 24 08/12/2023 CBC AUTO W DIFF MCV 78.7 fL 78-100 Not Available [facility] ([facility]) [address], [place], [address], 08/12/2023 16:25:11 08/12/19 24 08/12/2023 CBC AUTO W DIFF MCH 25.3 pg 27-31 low Not Available [facility] ([facility]) [address] , [place], [address], 08/12/2023 16:25:11 08/12/19 24 08/12/2023 CBC AUTO W DIFF MCHC 32.1 g/dL 32-36 Not Available [facility] ([facility]) [address] , [place], [address], 08/12/2023 16:25:11 08/12/19 24 08/12/2023 CBC AUTO W DIFF RDW 15.9 % 11.5-1 4.0 high Not Available [facility] ([facility]) [address] , [place], [address], 08/12/2023 16:25:11 08/12/19 24 08/12/2023 CBC AUTO W DIFF platelet count 201 K/uL 150-45 0 Not Available [facility] ([facility]) [address] , [place], [address], 08/12/2023 16:25:11 08/12/19 24 08/12/2023 CBC AUTO W DIFF MPV 10.1 fL 6-9.5 high Not Available [facility] ([facility]) [address] , [place], [address], 08/12/2023 16:25:11 08/12/19 24 08/12/2023 CBC AUTO W DIFF neutrophil% 44.7 % 43-65 Not Available [facility] ([facility]) [address] [place], [address], 08/12/2023 16:25:11 08/12/19 24 08/12/2023 CBC AUTO W DIFF lymphocyte% 46.5 % 20.5-4 5.5 high Not Available [facility] ([facility]) [address] [place], [address], 08/12/2023 16:25:11 08/12/19 24 08/12/2023 CBC AUTO W DIFF monocyte% 6.5 % 5.5-11 .7 Not Available [facility] ([facility]) [address] [place], [address], 08/12/2023 16:25:11 08/12/19 24 08/12/2023 CBC AUTO W DIFF eosinophil% 1.7 % 0.9-2. 9 Not Available [facility] ([facility]) [address] [place], [address], 08/12/2023 16:25:11 08/12/19 24 08/12/2023 CBC AUTO W DIFF basophil% 0.4 % 0.2-1. 0 Not Available [facility] ([facility]) [address] [place], [address], 08/12/2023 16:25:11 08/12/19 24 08/12/2023 CBC AUTO W DIFF immature granulocytes % 0.2 % 0.0-0. 8 Not Available [facility] ([facility]) [address] [place], [address], 08/12/2023 16:25:11 08/12/19 24 08/12/2023 CBC AUTO W DIFF nucleated red blood cells % 0.0 % Not Available [facility] ([facility]) [address] [place], [address], 08/12/2023 16:25:11 08/12/19 24 08/12/2023 CBC AUTO W DIFF neutrophil# 2.1 K/uL 2.2-4. 8 low Not Available [facility] ([facility]) [address] [facility], [place], [address], 08/12/2023 16:25:11 08/12/19 24 08/12/2023 CBC AUTO W DIFF lymphocyte# 2.2 cell/ mcL 1.3-2. 9 Not Available [facility] ([facility]) [address] [facility], [place], [address], 08/12/2023 16:25:11 08/12/19 24 08/12/2023 CBC AUTO W DIFF monocyte# 0.3 cell/ mcL 0.3-0. 8 Not Available [facility] ([facility]) [address] [facility], [place], [address], 08/12/2023 16:25:11 08/12/19 24 08/12/2023 CBC AUTO W DIFF eosinophil# 0.1 cell/ mcL 0-0.2 Not Available [facility] ([facility]) [address] [place], [address], 08/12/2023 16:25:11 08/12/19 24 08/12/2023 CBC AUTO W DIFF basophil# 0.0 cell/ mcL 0.0-1. 0 Not Available [facility] ([facility]) [address] [place], [address], 08/12/2023 16:25:11 08/12/19 24 08/12/2023 CBC AUTO W DIFF immature gramulocytes # 0.01 K/uL Not Available [facility] ([facility]) [address] [place], [address], 08/12/2023 16:25:11 08/12/19 24 08/12/2023 CBC AUTO W DIFF nucleated red blood cells # 0.00 K/uL Not Available [facility] ([facility]) [address], [place], [address], 08/12/2023 16:25:11 08/12/19 24 08/12/2023 CBC AUTO W DIFF manual differential NO Not Available [facility] ([facility]) [address], [place], [address], 08/12/2023 16:25:11 08/12/19 24 08/12/2023 PT (PROT HROMB IN TIME) W INR prothrombin time 10.1 secon ds 9.3-11 .4 Not Available [facility] ([facility]) [address] , [place], [address], 08/12/2023 16:48:05 08/12/19 24 08/12/2023 PT (PROT [...] Mecha nical Heart Valve s Not Available [facility] ([facility]) [address] , [place], [address], 08/12/2023 16:48:05 08/12/19 24 08/12/2023 COMP METAB OLIC PANEL sodium 145 mmol/ L 136-14 5 Not Available [facility] ([facility]) [address] , [place], [address], 08/12/2023 16:51:27 08/12/19 24 08/12/2023 COMP METAB OLIC PANEL potassium 3.6 mmol/ L 3.6-5. 0 Not Available [facility] ([facility]) [address] , [place], [address], 08/12/2023 16:51:27 08/12/19 24 08/12/2023 COMP METAB OLIC PANEL chloride 107 mmol/ L 98-107 Not Available [facility] ([facility]) [address] , [place], [address], 08/12/2023 16:51:27 08/12/19 24 08/12/2023 COMP METAB OLIC PANEL carbon dioxide 29.2 mmol/ L 21.0-3 2.0 Not Available [facility] ([facility]) [address] , [place], [address], 08/12/2023 16:51:27 08/12/19 24 08/12/2023 COMP METAB OLIC PANEL anion gap 12.4 Not Available [facility] ([facility]) [address] , [place], [address], 08/12/2023 16:51:27 08/12/19 24 08/12/2023 COMP METAB OLIC PANEL glucose 85 mg/dL 70-120 Not Available [facility] ([facility]) [address] , [place], [address], 08/12/2023 16:51:27 08/12/19 24 08/12/2023 COMP METAB OLIC PANEL BUN 16 mg/dL 7-18 Not Available [facility] ([facility]) [address] , [place], [address], 08/12/2023 16:51:27 08/12/19 24 08/12/2023 COMP METAB OLIC PANEL creatinine 0.8 mg/dL 0.6-1. 3 Not Available [facility] ([facility]) [address] [place], [address], 08/12/2023 16:51:27 08/12/19 24 08/12/2023 COMP METAB OLIC PANEL glomerular filtration rate >60 mlper min 60- Not Available [facility] ([facility]) [address] [place], [address], 08/12/2023 16:51:27 08/12/19 24 08/12/2023 COMP METAB OLIC PANEL total protein 6.7 g/dL 6.4-8. 2 Not Available [facility] ([facility]) [address], [place], [address], 08/12/2023 16:51:27 08/12/19 24 08/12/2023 COMP METAB OLIC PANEL albumin 4.1 g/dL 3.4-5. 0 Not Available [facility] ([facility]) [address] , [place], [address], 08/12/2023 16:51:27 08/12/19 24 08/12/2023 COMP METAB OLIC PANEL globulin 2.6 Not Available [facility] ([facility]) [address] , [place], [address], 08/12/2023 16:51:27 08/12/19 24 08/12/2023 COMP METAB OLIC PANEL alb/glob ratio 1.6 0.7-2 Not Available [facility] ([facility]) [address] , [place], [address], 08/12/2023 16:51:27 08/12/19 24 08/12/2023 COMP METAB OLIC PANEL calcium 9.1 mg/dL 8.5-10 .5 Not Available [facility] ([facility]) [address] , [place], [address], 08/12/2023 16:51:27 08/12/19 24 08/12/2023 COMP METAB OLIC PANEL bilirubin total 0.30 mg/dL 0.10-1 .00 Not Available [facility] ([facility]) [address] , [place], [address], 08/12/2023 16:51:27 08/12/19 24 08/12/2023 COMP METAB OLIC PANEL AST (SGOT) 23 U/L 0-37 Not Available [facility] ([facility]) [address], [place], [address], 08/12/2023 16:51:27 08/12/19 24 08/12/2023 COMP METAB OLIC PANEL ALT (SGPT) 63 U/L 0-65 Not Available [facility] ([facility]) [address], [place], [address], 08/12/2023 16:51:27 08/12/19 24 08/12/2023 COMP METAB OLIC PANEL alk phosphatase 78 U/L 46-116 Not Available [facility] ([facility]) [address], [place], [address], 08/12/2023 16:51:27 08/12/19 24 08/14/2023 FACTO R VII (7) ACTIV ITY factor VII (7) activity 148 % 51-186 Perfo rmed at: BN - [facility] [address] [place] [address] Lab Direc tor: Fabiola contreras MD, Phone : [phone] Not Available [facility] ([facility]) [address] [place], [address], 08/14/2023 06:13:35 08/12/19 24 08/14/2023 PROTE IN C FUNTI ONAL protein C functional 151 % 73-180 Perfo rmed at: BN - [facility] [address] [place] [address] Lab Direc tor: Fabiola contreras MD, Phone : [phone] Not Available [facility] ([facility]) [address] [place], [address], 08/14/2023 13:12:25 08/12/19 24 08/14/2023 ANTIT HROMB IN 3 ACTIV ITY antithrombin activity 131 % 75-135 Direc t Xa inhib itor antic oagul ants such as rivar oxaba n, apixa ban and edoxa ban will lead to spuri ously eleva ellen antit hromb in activ ity level s possi robert maski ng a defic iency . Not Available [facility] ([facility]) [address] [facility], [place], [address], 08/14/2023 15:11:29 08/12/19 24 08/14/2023 ANTIT HROMB IN 3 ACTIV ITY antithrobmin antigen 112 % 72-124 This test was devel oped and its perfo rmanc e lindsay cteri stics deter mined by [email or web address]. It has not been clear ed or appro zane by the Food and Drug Admin istra tion. Perfo rmed at: - [facility] [address] [facility] , [place] [address] Lab Direc tor: Fabiola contreras MD, Phone : [phone] Not Available [facility] ([facility]) [address] [facility], [place], [address], 08/14/2023 15:11:29 08/12/19 24 08/14/2023 PROTE IN [...] d be consi dered , after itzel ralph out acqui red cause s, depanastasiia malloy on the clini abena scena lucas. Perfo rmed at: BN - [facility] [address] [facility] , [place] [address] Lab Direc tor: Fabiola contreras MD, Phone : [phone] Not Available [facility] ([facility]) [address] [facility], [place], [address], 08/14/2023 15:11:31 08/12/19 24 08/13/2023 FE+TI BC+FE R iron bind.cap.(TI BC) 384 ug/dL 250-45 0 Not Available [facility] ([facility]) [address] [facility], [place], [address], 08/18/2023 04:37:17 08/12/19 24 08/13/2023 FE+TI BC+FE R UIBC 344 ug/dL 131-42 5 Not Available [facility] ([facility]) [address] [facility], [place], [address], 08/18/2023 04:37:17 08/12/19 24 08/13/2023 FE+TI BC+FE R iron 40 ug/dL 27-159 Not Available [facility] ([facility]) [address] [place], [address], 08/18/2023 04:37:17 08/12/19 24 08/13/2023 FE+TI BC+FE R iron saturation 10 % 15-55 below low normal Not Available [facility] ([facility]) [address] [place], [address], 08/18/2023 04:37:17 08/12/19 24 08/13/2023 FE+TI BC+FE R ferritin 45 NG/mL 15-150 Not Available [facility] ([facility]) [address] [place], [address], 08/18/2023 04:37:17 08/12/19 24 08/13/2023 TSH+F REE T4 TSH 1.210 uIU/m L 0.450- 4.500 Not Available [facility] ([facility]) [address] [place], [address], 08/18/2023 04:37:18 08/12/19 24 08/13/2023 TSH+F REE T4 T4,free(dire ct) 1.01 NG/dL 0.82-1 .77 Not Available [facility] ([facility]) [address] [place], [address], 08/18/2023 04:37:18 08/12/19 24 08/13/2023 CBC WITH DIFFE RENTI AL/PL ATELE T WBC 4.2 x10e3 /uL 3.4-10 .8 Not Available [facility] ([facility]) [address] [place], [address], 08/18/2023 04:37:19 08/12/19 24 08/13/2023 CBC WITH DIFFE RENTI AL/PL ATELE T RBC 4.74 x10e6 /uL 3.77-5 .28 Not Available [facility] ([facility]) [address] [facility], [place], [address], 08/18/2023 04:37:19 08/12/19 24 08/13/2023 CBC WITH DIFFE RENTI AL/PL ATELE T hemoglobin 11.9 g/dL 11.1-1 5.9 Not Available [facility] ([facility]) [address] [facility], [place], [address], 08/18/2023 04:37:19 08/12/19 24 08/13/2023 CBC WITH DIFFE RENTI AL/PL ATELE T hematocrit 37.0 % 34.0-4 6.6 Not Available [facility] ([facility]) [address] [facility], [place], [address], 08/18/2023 04:37:19 08/12/19 24 08/13/2023 CBC WITH DIFFE RENTI AL/PL ATELE T MCV 78 fL 79-97 below low normal Not Available [facility] ([facility]) [address] [place], [address], 08/18/2023 04:37:19 08/12/19 24 08/13/2023 CBC WITH DIFFE RENTI AL/PL ATELE T MCH 25.1 pg 26.6-3 3.0 below low normal Not Available [facility] ([facility]) [address] [place], [address], 08/18/2023 04:37:19 08/12/19 24 08/13/2023 CBC WITH DIFFE RENTI AL/PL ATELE T MCHC 32.2 g/dL 31.5-3 5.7 Not Available [facility] ([facility]) [address] [place], [address], 08/18/2023 04:37:19 08/12/19 24 08/13/2023 CBC WITH DIFFE RENTI AL/PL ATELE T RDW 16.1 % 11.7-1 5.4 above high normal Not Available [facility] ([facility]) [address] [facility], [place], [address], 08/18/2023 04:37:19 08/12/19 24 08/13/2023 CBC WITH DIFFE RENTI AL/PL ATELE T platelets 201 x10e3 /uL 150-45 0 Not Available [facility] ([facility]) [address] [facility], [place], [address], 08/18/2023 04:37:19 08/12/19 24 08/13/2023 CBC WITH DIFFE RENTI AL/PL ATELE T neutrophils 48 % not estab. Not Available [facility] ([facility]) [address] [facility], [place], [address], 08/18/2023 04:37:19 08/12/19 24 08/13/2023 CBC WITH DIFFE RENTI AL/PL ATELE T lymphs 43 % not estab. Not Available [facility] ([facility]) [address] [facility], [place], [address], 08/18/2023 04:37:19 08/12/19 24 08/13/2023 CBC WITH DIFFE RENTI AL/PL ATELE T monocytes 6 % not estab. Not Available [facility] ([facility]) [address] [facility], [place], [address], 08/18/2023 04:37:19 08/12/19 24 08/13/2023 CBC WITH DIFFE RENTI AL/PL ATELE T eos 2 % not estab. Not Available [facility] ([facility]) [address] [facility], [place], [address], 08/18/2023 04:37:19 08/12/19 24 08/13/2023 CBC WITH DIFFE RENTI AL/PL ATELE T basos 1 % not estab. 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 0 Not Available [facility] ([facility]) [address] [place], [address], 08/18/2023 04:37:19 08/12/19 24 08/13/2023 CBC WITH DIFFE RENTI AL/PL ATELE T lymphs (absolute) 1.8 x10e3 /uL 0.7-3. 1 Not Available [facility] ([facility]) [address] [place], [address], 08/18/2023 04:37:19 08/12/19 24 08/13/2023 CBC WITH DIFFE RENTI AL/PL ATELE T monocytes(ab solute) 0.3 x10e3 /uL 0.1-0. 9 Not Available [facility] ([facility]) [address] [place], [address], 08/18/2023 04:37:19 08/12/19 24 08/13/2023 CBC WITH DIFFE RENTI AL/PL ATELE T eos (absolute) 0.1 x10e3 /uL 0.0-0. 4 Not Available [facility] ([facility]) [address] [place], [address], 08/18/2023 04:37:19 08/12/19 24 08/13/2023 CBC WITH DIFFE RENTI AL/PL ATELE T baso (absolute) 0.0 x10e3 /uL 0.0-0. 2 Not Available [facility] ([facility]) [address] [facility], [place], [address], 08/18/2023 04:37:19 08/12/19 24 08/13/2023 CBC WITH DIFFE RENTI AL/PL ATELE T immature granulocytes 0 % not estab. Not Available [facility] ([facility]) [address] [facility], [place], [address], 08/18/2023 04:37:19 08/12/19 24 08/13/2023 CBC WITH DIFFE RENTI AL/PL ATELE T immature grans (abs) 0.0 x10e3 /uL 0.0-0. 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 METAB OLIC PANEL (14) glucose 87 mg/dL 70-99 Not Available [facility] ([facility]) [address] [facility], [place], [address], 08/18/2023 04:37:20 08/12/19 24 08/13/2023 COMP. METAB OLIC PANEL (14) BUN 14 mg/dL 6-24 Not Available [facility] ([facility]) [address] [facility], [place], [address], 08/18/2023 04:37:20 04/10/20 24 08/13/2023 COMP. METAB OLIC PANEL (14) creatinine 0.73 mg/dL 0.57-1 .00 Not Available [facility] ([facility]) [address] [facility], [place], [address], 08/18/2023 04:37:20 08/12/19 24 08/13/2023 COMP. METAB OLIC PANEL (14) eGFR 103 mL/mi n/1.7 3 >59 Not Available [facility] ([facility]) [address] [facility], [place], [address], 08/18/2023 04:37:20 08/12/19 24 08/13/2023 COMP. METAB OLIC PANEL (14) BUN/creatini ne ratio 19 9-23 Not Available [facility] ([facility]) [address] [facility], [place], [address], 08/18/2023 04:37:20 08/12/19 24 08/13/2023 COMP. METAB OLIC PANEL (14) sodium 143 mmol/ L 134-14 4 Not Available [facility] ([facility]) [address] [place], [address], 08/18/2023 04:37:20 08/12/19 24 08/13/2023 COMP. METAB OLIC PANEL (14) potassium 3.9 mmol/ L 3.5-5. 2 Not Available [facility] ([facility]) [address] [facility], [place], [address], 08/18/2023 04:37:20 08/12/19 24 08/13/2023 COMP. METAB OLIC PANEL (14) chloride 107 mmol/ L 96-106 above high normal Not Available [facility] ([facility]) [address] [facility], [place], [address], 08/18/2023 04:37:20 08/12/19 24 08/13/2023 COMP. METAB OLIC PANEL (14) carbon dioxide, total 21 mmol/ L 20-29 Not Available [facility] ([facility]) [address] [facility], [place], [address], 08/18/2023 04:37:20 08/12/19 24 08/13/2023 COMP. METAB OLIC PANEL (14) calcium 9.2 mg/dL 8.7-10 .2 Not Available [facility] ([facility]) [address] [facility], [place], [address], 08/18/2023 04:37:20 08/12/19 24 08/13/2023 COMP. METAB OLIC PANEL (14) protein, total 6.2 g/dL 6.0-8. 5 Not Available [facility] ([facility]) [address] [facility], [place], [address], 08/18/2023 04:37:20 08/12/19 24 08/13/2023 COMP. METAB OLIC PANEL (14) albumin 4.4 g/dL 3.9-4. 9 Not Available [facility] ([facility]) [address] [facility], [place], [address], 08/18/2023 04:37:20 08/12/19 24 08/13/2023 COMP. METAB OLIC PANEL (14) globulin, total 1.8 g/dL 1.5-4. 5 Not Available [facility] ([facility]) [address] [facility], [place], [address], 08/18/2023 04:37:20 08/12/19 24 08/13/2023 COMP. METAB OLIC PANEL (14) A/G ratio 2.4 1.2-2. 2 above high normal Not Available [facility] ([facility]) [address] [facility], [place], [address], 08/18/2023 04:37:20 08/12/19 24 08/13/2023 COMP. METAB OLIC PANEL (14) bilirubin, total 0.2 mg/dL 0.0-1. 2 Not Available [facility] ([facility]) [address] [place], [address], 08/18/2023 04:37:20 08/12/19 24 08/13/2023 COMP. METAB OLIC PANEL (14) alkaline phosphatase 73 IU/L 44-121 Not Available [facility] ([facility]) [address] [place], [address], 08/18/2023 04:37:20 08/12/19 24 08/13/2023 COMP. METAB OLIC PANEL (14) AST (SGOT) 33 IU/L 0-40 Not Available [facility] ([facility]) [address] [place], [address], 08/18/2023 04:37:20 08/12/19 24 08/13/2023 COMP. METAB OLIC PANEL (14) ALT (SGPT) 49 IU/L 0-32 above high normal Not Available [facility] ([facility]) [address] [place], [address], 08/18/2023 04:37:20 08/12/19 24 08/15/2023 VITAM IN E vitamin E(alpha tocopherol) 8.3 mg/L 7.0-25 .1 Not Available [facility] ([facility]) [address] [place], [address], 08/18/2023 04:37:21 08/12/19 24 08/15/2023 VITAM IN [...] in E defic ient. Not Available [facility] ([facility]) [address] [place], [address], 08/18/2023 04:37:21 08/12/19 24 08/13/2023 FOLAT E (FOLI C ACID) , SERUM folate (folic acid), serum 14.1 NG/mL >3.0 A serum folat e rhonda ntrat ion of less than 3.1 ng/mL is consi dered to repre sent clini abena defic iency . Not Available [facility] ([facility]) [address] [facility], [place], [address], 08/18/2023 04:37:22 08/12/19 24 08/15/2023 VITAM IN [...] Drug Admin istra tion. Not Available [facility] ([facility]) [address] [facility], [place], [address], 08/18/2023 04:37:23 08/12/19 24 08/13/2023 VITAM IN [...] Medic ine). 2010. Dieta ry refer ence intjulia es for calci um and D. Apple su DC: [facility] . 2. Dion gramajo MF, Yolanda dodd [place], Bianca off-F errar i JACINTO, et al. Evalu ation , treat ment, and preve ntion of vitam in D defic iency : an Endoc rine Socie ty clini abena pract ice guide line. JCEM. 2010; 96(7) :1911 -30. Not Available [facility] ([facility]) [address] [place], [address], 08/18/2023 04:37:24 08/12/19 24 08/17/2023 VITAM IN B1 (THIA MINE) , BLOOD vit. B1, whole blood 140.3 nmol/ L 66.5-2 00.0 Not Available [facility] ([facility]) [address] [place], [address], 08/18/2023 04:37:24 08/12/19 24 08/18/2023 METHY LMALO TIRSO ACID, SERUM methylmaloni c acid, serum 194 nmol/ L 0-378 Not Available [facility] ([facility]) [address] [place], [address], 08/18/2023 04:37:25 08/12/19 24 08/13/2023 PREAL BUMIN prealbumin 24 mg/dL 12-34 Not Available [facility] ([facility]) [address] [place], [address], 08/18/2023 04:37:26 08/12/19 24 08/26/2023 FACTO R [...] Facto r V Leide n (PMID : 78850 767). Addit ional risk facto rs inclu [...] ders to discu ss resul ts at [phone]- GENE (4363 ). . Test Detai ls: Varia nt Jesús zed: c.160 1G>A (p. Arg53 4Gln) , refer red to as Facto r V Jass espinoza . Metho ds/Li mitat ions: DNA jesús sis of the F5 gene ([id number]) was perfo rmed by PCR ampli [...] S, Kim elizabeth AK, Sherlyn Elizabeth, Laurent WW, Felix in JH; [facility] Profe ssion al Pract ice and Guide lines Commi ttee. Adden dum: Donovan parsons Colle ge of Medic al Dee ics conse nsus state ment on facto r V Jass n mutat ion testi ng. Dee Med. 2020Jul 06. doi: 10.10 38/s4 1436- 021-0 1108- x. PMID: 27397 767. . Tracie REYNAGA. Facto r V Leide n Throm bophi dixie. 1998September 14 (Upda ellen 2017May 07). In: Butch MP, Hattie pyle HH, Yusuf RA, et al., madhav rs. GeneR dayana s(R) (Inte rnet) . Librado hilario ([place]): [facility] sharlene Librado; 1992- 2020. Avail able from: https ://ww w.dcb i.nlm .nih. gov/b ooks/ NBK13 68/ . Vincent S, Kim r AK, Geremias X, Javier B, Spect or EB, Madonna P, Cathie melissa CS; [facility] Labor atory Quali ty Assur ance Commi ttee. Venou s throm boemb olism labor atory testi ng (fact or V Leide n and facto r II c.*97 G>A), 2018 updat e: a techn ical stand fredrick of the Donovan Ybarra ge of Medic al Dee ics and Genom ics ([facility] ). Dee Med. 2018 Apr;2 0(12) :1489 -1498 . doi: 10.[facility]/s4 1436- 018-0 322-z . Epub 2017Feb 05. PMID: 69001 698. Not Available [facility] ([facility]) [address] [facility] [facility], [place], [address], 08/26/2023 10:13:44 08/12/19 24 08/26/2023 FACTO R V LEIDE N MUTAT ION reviewed by: RADHA Tay Techn ical [place] perfo rmed at [facility] Profmarques reyes al [place] perfo rmed by: . Gustavo dodd, Ph.D. , [facility] Direc tor, Mole[facility] ular Dee ics [address] [facility] [place] [address] Perfo rmed at: - [facility] [place] [address] , [place], [place] [address] Lab Direc tor: Lindsey Riggins [facility] , Phone : [phone] Not Available [facility] ([facility]) [address], [place], [address], 08/26/2023 10:13:44 09/14/1909/14/2023 CBC AUTO W DIFF WBC 5.0 K/uL 4.0-10 .5 Not Available [facility] ([facility]) [address], [place], [address], 09/14/2023 17:58:49 09/14/19 24 09/14/2023 CBC AUTO W DIFF RBC 4.9 M/mm3 4.2-6. 4 Not Available [facility] ([facility]) [address] , [place], [address], 09/14/2023 17:58:49 09/14/19 24 09/14/2023 CBC AUTO W DIFF HGB 12.8 gm/dL 12.5-1 6.0 Not Available [facility] ([facility]) [address] , [place], [address], 09/14/2023 17:58:49 09/14/19 24 09/14/2023 CBC AUTO W DIFF HCT 37.9 % 37.0-4 7.0 Not Available [facility] ([facility]) [address] , [place], [address], 09/14/2023 17:58:49 09/14/19 24 09/14/2023 CBC AUTO W DIFF MCV 78.0 fL 78-100 Not Available [facility] ([facility]) [address] , [place], [address], 09/14/2023 17:58:49 09/14/19 24 09/14/2023 CBC AUTO W DIFF MCH 26.3 pg 27-31 low Not Available [facility] ([facility]) [address] , [place], [address], 09/14/2023 17:58:49 09/14/19 24 09/14/2023 CBC AUTO W DIFF MCHC 33.8 g/dL 32-36 Not Available [facility] ([facility]) [address] , [place], [address], 09/14/2023 17:58:49 09/14/19 24 09/14/2023 CBC AUTO W DIFF RDW 15.5 % 11.5-1 4.0 high Not Available [facility] ([facility]) [address], [place], [address], 09/14/2023 17:58:49 09/14/19 24 09/14/2023 CBC AUTO W DIFF platelet count 240 K/uL 150-45 0 Not Available [facility] ([facility]) [address], [place], [address], 09/14/2023 17:58:49 09/14/19 24 09/14/2023 CBC AUTO W DIFF MPV 10.4 fL 6-9.5 high Not Available [facility] ([facility]) [address] [place], [address], 09/14/2023 17:58:49 09/14/19 24 09/14/2023 CBC AUTO W DIFF neutrophil% 53.9 % 43-65 Not Available [facility] ([facility]) [address] [place], [address], 09/14/2023 17:58:49 09/14/19 24 09/14/2023 CBC AUTO W DIFF lymphocyte% 38.5 % 20.5-4 5.5 Not Available [facility] ([facility]) [address] [place], [address], 09/14/2023 17:58:49 09/14/19 24 09/14/2023 CBC AUTO W DIFF monocyte% 6.2 % 5.5-11 .7 Not Available [facility] ([facility]) [address] [place], [address], 09/14/2023 17:58:49 09/14/19 24 09/14/2023 CBC AUTO W DIFF eosinophil% 0.8 % 0.9-2. 9 low Not Available [facility] ([facility]) [address] [facility], [place], [address], 09/14/2023 17:58:49 09/14/19 24 09/14/2023 CBC AUTO W DIFF basophil% 0.4 % 0.2-1. 0 Not Available [facility] ([facility]) [address] [facility], [place], [address], 09/14/2023 17:58:49 09/14/19 24 09/14/2023 CBC AUTO W DIFF immature granulocytes % 0.2 % 0.0-0. 8 Not Available [facility] ([facility]) [address] [place], [address], 09/14/2023 17:58:49 09/14/19 24 09/14/2023 CBC AUTO W DIFF nucleated red blood cells % 0.0 % Not Available [facility] ([facility]) [address] [place], [address], 09/14/2023 17:58:49 09/14/19 24 09/14/2023 CBC AUTO W DIFF neutrophil# 2.7 K/uL 2.2-4. 8 Not Available [facility] ([facility]) [address] [place], [address], 09/14/2023 17:58:49 09/14/19 24 09/14/2023 CBC AUTO W DIFF lymphocyte# 1.9 cell/ mcL 1.3-2. 9 Not Available [facility] ([facility]) [address] [place], [address], 09/14/2023 17:58:49 09/14/19 24 09/14/2023 CBC AUTO W DIFF monocyte# 0.3 cell/ mcL 0.3-0. 8 Not Available [facility] ([facility]) [address], [place], [address], 09/14/2023 17:58:49 09/14/19 24 09/14/2023 CBC AUTO W DIFF eosinophil# 0.0 cell/ mcL 0-0.2 Not Available [facility] ([facility]) [address] [place], [address], 09/14/2023 17:58:49 09/14/19 24 09/14/2023 CBC AUTO W DIFF basophil# 0.0 cell/ mcL 0.0-1. 0 Not Available [facility] ([facility]) [address], [place], [address], 09/14/2023 17:58:49 09/14/19 24 09/14/2023 CBC AUTO W DIFF immature gramulocytes # 0.01 K/uL Not Available [facility] ([facility]) [address] [place], [address], 09/14/2023 17:58:49 09/14/19 24 09/14/2023 CBC AUTO W DIFF nucleated red blood cells # 0.00 K/uL Not Available [facility] ([facility]) [address] [place], [address], 09/14/2023 17:58:49 09/14/19 24 09/14/2023 CBC AUTO W DIFF manual differential NO Not Available [facility] ([facility]) [address] [place], [address], 09/14/2023 17:58:49 09/14/19 24 09/14/2023 COMP METAB OLIC PANEL sodium 142 mmol/ L 136-14 5 Not Available [facility] ([facility]) [address] [place], [address], 09/14/2023 18:30:47 09/14/19 24 09/14/2023 COMP METAB OLIC PANEL potassium 3.4 mmol/ L 3.6-5. 0 low Not Available [facility] ([facility]) [address] , [place], [address], 09/14/2023 18:30:47 09/14/19 24 09/14/2023 COMP METAB OLIC PANEL chloride 106 mmol/ L 98-107 Not Available [facility] ([facility]) [address] , [place], [address], 09/14/2023 18:30:47 09/14/19 24 09/14/2023 COMP METAB OLIC PANEL carbon dioxide 25.9 mmol/ L 21.0-3 2.0 Not Available [facility] ([facility]) [address] , [place], [address], 09/14/2023 18:30:47 09/14/19 24 09/14/2023 COMP METAB OLIC PANEL anion gap 13.5 Not Available [facility] ([facility]) [address], [place], [address], 09/14/2023 18:30:47 09/14/19 24 09/14/2023 COMP METAB OLIC PANEL glucose 79 mg/dL 70-120 Not Available [facility] ([facility]) [address] , [place], [address], 09/14/2023 18:30:47 09/14/19 24 09/14/2023 COMP METAB OLIC PANEL BUN 12 mg/dL 7-18 Not Available [facility] ([facility]) [address] [place], [address], 09/14/2023 18:30:47 09/14/19 24 09/14/2023 COMP METAB OLIC PANEL creatinine 0.9 mg/dL 0.6-1. 3 Not Available [facility] ([facility]) [address] [place], [address], 09/14/2023 18:30:47 09/14/19 24 09/14/2023 COMP METAB OLIC PANEL glomerular filtration rate >60 mlper min 60- Not Available [facility] ([facility]) [address] , [place], [address], 09/14/2023 18:30:47 09/14/19 24 09/14/2023 COMP METAB OLIC PANEL total protein 6.6 g/dL 6.4-8. 2 Not Available [facility] ([facility]) [address] , [place], [address], 09/14/2023 18:30:47 09/14/19 24 09/14/2023 COMP METAB OLIC PANEL albumin 4.1 g/dL 3.4-5. 0 Not Available [facility] ([facility]) [address] , [place], [address], 09/14/2023 18:30:47 09/14/19 24 09/14/2023 COMP METAB OLIC PANEL globulin 2.5 Not Available [facility] ([facility]) [address] , [place], [address], 09/14/2023 18:30:47 09/14/19 24 09/14/2023 COMP METAB OLIC PANEL alb/glob ratio 1.6 0.7-2 Not Available [facility] ([facility]) [address] , [place], [address], 09/14/2023 18:30:47 09/14/19 24 09/14/2023 COMP METAB OLIC PANEL calcium 9.5 mg/dL 8.5-10 .5 Not Available [facility] ([facility]) [address] , [place], [address], 09/14/2023 18:30:47 09/14/19 24 09/14/2023 COMP METAB OLIC PANEL bilirubin total 0.40 mg/dL 0.10-1 .00 Not Available [facility] ([facility]) [address], [place], [address], 09/14/2023 18:30:47 09/14/19 24 09/14/2023 COMP METAB OLIC PANEL AST (SGOT) 30 U/L 0-37 Not Available [facility] ([facility]) [address], [place], [address], 09/14/2023 18:30:47 09/14/19 24 09/14/2023 COMP METAB OLIC PANEL ALT (SGPT) 71 U/L 0-65 high Not Available [facility] ([facility]) [address], [place], [address], 09/14/2023 18:30:47 09/14/19 24 09/14/2023 COMP METAB OLIC PANEL alk phosphatase 94 U/L 46-116 Not Available [facility] ([facility]) [address] [facility], [place], [address], 09/14/2023 18:30:47 09/14/19 24 09/17/2023 FACTO R VIII (8) ACTIV ITY factor VIII (8) activity 103 % 56-140 [facility] at: [facility] [place] [address] [facility] [place] [address] Lab Direc tor: Fabiola contreras MD, Phone : [phone] Not Available [facility] ([facility]) [address] [place], [address], 09/17/2023 06:14:34 09/14/19 24 09/17/2023 PROTE IN [...] shoul d be consi dered , after kyaralin g out acqui red cause s, depen ding on the clini abena scena lucas. Perfo rmed at: BN - [facility] [place] [address] [facility] , [place] [address] Lab Direc tor: Fabiola contreras MD, Phone : [phone] Not Available [facility] ([facility]) [address], [place], [address], 09/17/2023 06:14:35 09/14/19 24 10/02/2023 FACTO R [...] Facto r V Leide n (PMID : [id number]). Ad ditio nal risk facto rs [...] ders to discu ss resul ts at [phone]- GENE (0840 ). . Test Detai ls: Varia nt jesús zed: c.*97 G>A, previ ously refer red to as G2021 0 A . Metho ds/Li mitat ions: DNA jesús sis of the F2 gene ([id number] .[id number]) was perfo rmed by P CR [...] Sherlyn ho R, Laurent ESPINOZA, Felix in ; [facility] Pro fessi onal Pract ice and Guide lines Commi ttee. Adden dum: Donovan ralph e of Medic al Dee ics conse nsus state ment on facto r V Leide n muta tion testi ng. Dee Med. 2020Jul 06. doi: 10.10 38/s4 1436- 021-0 110 8-x. PMID: 63342 767. . Tracie hilario JL. Proth rombi n Throm bophi dixie. 2005Nov 25 Updat ed 2020Jun 07 . In: Butch MP, Hattie pyle HH, Yusuf RA, et al., madhav rs. GeneR eview s(R) Inter net . Seatt le ([place]): Unive rsity of [facility] sharlene Joshjasvir hilario; 1992- 2020. Avail able from: https ://nolberto hamilton.ncb i.nlm .nih. gov/b ooks/ NBK11 48/ . Vincent S, Kim elizabeth AK, Geremias X, Javier B, Spect or EB, Madonna P, Ramon ferro CS; [facility] Labor atory Quali ty Assur ance Commi ttee. Venou s throm lesli mboli sm labor atory testi ng (fact or V Leide n and facto r II c.*97 G>A), 2018 updat e: a techn ical stand fredrick of the Donovan Ybarra ge of Medic al Dee ics and Genom ics ([facility] ). Dee Med. 2018 Apr;2 0(12) :148 9-149 8. doi: 10.10 38/s4 1436- 018-0 322-z . Epub 2017Feb 05. PMID: 68286 698. Not Available [facility] ([facility]) [address] , [place], [address], 10/02/2023 17:10:37 09/14/19 24 10/02/2023 FACTO R II, DNA JESÚS SIS reviewed by: Radha tay Techn ical [place] perfo rmed at [facility] RTP Profmarques reyes al [place] perfo rmed by: Phi Hoyos, Ph.D. , FAC Dire tor, Mole[facility] ular Dee ics [address] [facility] Doug morales [place] Perfo rmed at: TG - [facility]P [address] [facility] , [place] [address] Lab Direc tor: Lindsey Gilson [facility] , Phone : [phone] Not Available [facility] ([facility]) [address], [place], [address], 10/02/2023 17:10:37 11/02/19 24 11/03/2023 FE+TI BC+FE R iron bind.cap.(TI BC) 423 ug/dL 250-45 0 Not Available [facility] ([facility]) [address] [place], [address], 11/08/2023 18:36:13 11/02/19 24 11/03/2023 FE+TI BC+FE R UIBC 382 ug/dL 131-42 5 Not Available [facility] ([facility]) [address] [place], [address], 11/08/2023 18:36:13 11/02/19 24 11/03/2023 FE+TI BC+FE R iron 41 ug/dL 27-159 Not Available [facility] ([facility]) [address] [place], [address], 11/08/2023 18:36:13 11/02/19 24 11/03/2023 FE+TI BC+FE R iron saturation 10 % 15-55 below low normal Not Available [facility] ([facility]) [address] [place], [address], 11/08/2023 18:36:13 11/02/19 24 11/03/2023 FE+TI BC+FE R ferritin 16 NG/mL 15-150 Not Available [facility] ([facility]) [address] [place], [address], 11/08/2023 18:36:13 11/02/19 24 11/03/2023 TSH+F REE T4 TSH 2.630 uIU/m L 0.450- 4.500 Not Available [facility] ([facility]) [address] [facility], [place], [address], 11/08/2023 18:36:14 11/02/19 24 11/03/2023 TSH+F REE T4 T4,free(dire ct) 0.98 NG/dL 0.82-1 .77 Not Available [facility] ([facility]) [address] [facility], [place], [address], 11/08/2023 18:36:14 11/02/19 24 11/03/2023 CBC WITH DIFFE RENTI AL/PL ATELE T WBC 4.1 x10e3 /uL 3.4-10 .8 Not Available [facility] ([facility]) [address] [facility], [place], [address], 11/08/2023 18:36:14 11/02/19 24 11/03/2023 CBC WITH DIFFE RENTI AL/PL ATELE T RBC 4.38 x10e6 /uL 3.77-5 .28 Not Available [facility] ([facility]) [address] [facility] [address] [facility], [place], [address], 11/08/2023 18:36:14 11/02/19 24 11/03/2023 CBC WITH DIFFE RENTI AL/PL ATELE T hemoglobin 11.3 g/dL 11.1-1 5.9 Not Available [facility] ([facility]) [address] [place], [address], 11/08/2023 18:36:14 11/02/19 24 11/03/2023 CBC WITH DIFFE RENTI AL/PL ATELE T hematocrit 34.6 % 34.0-4 6.6 Not Available [facility] ([facility]) [address] [place], [address], 11/08/2023 18:36:14 11/02/19 24 11/03/2023 CBC WITH DIFFE RENTI AL/PL ATELE T MCV 79 fL 79-97 Not Available [facility] ([facility]) [address] [facility], [place], [address], 11/08/2023 18:36:14 11/02/19 24 11/03/2023 CBC WITH DIFFE RENTI AL/PL ATELE T MCH 25.8 pg 26.6-3 3.0 below low normal Not Available [facility] ([facility]) [address] [facility], [place], [address], 11/08/2023 18:36:14 11/02/19 24 11/03/2023 CBC WITH DIFFE RENTI AL/PL ATELE T MCHC 32.7 g/dL 31.5-3 5.7 Not Available [facility] ([facility]) [address] [facility], [place], [address], 11/08/2023 18:36:14 11/02/19 24 11/03/2023 CBC WITH DIFFE RENTI AL/PL ATELE T RDW 14.3 % 11.7-1 5.4 Not Available [facility] ([facility]) [address] [facility], [place], [address], 11/08/2023 18:36:14 11/02/19 24 11/03/2023 CBC WITH DIFFE RENTI AL/PL ATELE T platelets 240 x10e3 /uL 150-45 0 Not Available [facility] ([facility]) [address] [facility], [place], [address], 11/08/2023 18:36:14 11/02/19 24 11/03/2023 CBC WITH DIFFE RENTI AL/PL ATELE T neutrophils 50 % not estab. Not Available [facility] ([facility]) [address] [facility], [place], [address], 11/08/2023 18:36:14 11/02/19 24 11/03/2023 CBC WITH DIFFE RENTI AL/PL ATELE T lymphs 41 % not estab. Not Available [facility] ([facility]) [address] [facility], [place], [address], 11/08/2023 18:36:14 11/02/19 24 11/03/2023 CBC WITH DIFFE RENTI AL/PL ATELE T monocytes 7 % not estab. Not Available [facility] ([facility]) [address] [facility], [place], [address], 11/08/2023 18:36:14 11/02/19 24 11/03/2023 CBC WITH DIFFE RENTI AL/PL ATELE T eos 1 % not estab. Not Available [facility] ([facility]) [address] [facility], [place], [address], 11/08/2023 18:36:14 11/02/19 24 11/03/2023 CBC WITH DIFFE RENTI AL/PL ATELE T basos 1 % not estab. Not Available [facility] ([facility]) [address] [facility], [place], [address], 11/08/2023 18:36:14 11/02/19 24 11/03/2023 CBC WITH DIFFE RENTI AL/PL ATELE T immature cells MET[employer]PERATOR Not Available [facility] ([facility]) [address] [place], [address], 11/08/2023 18:36:14 11/02/19 24 11/03/2023 CBC WITH DIFFE RENTI AL/PL ATELE T neutrophils (absolute) 2.0 x10e3 /uL 1.4-7. 0 Not Available [facility] ([facility]) [address] [place], [address], 11/08/2023 18:36:14 11/02/19 24 11/03/2023 CBC WITH DIFFE RENTI AL/PL ATELE T lymphs (absolute) 1.7 x10e3 /uL 0.7-3. 1 Not Available [facility] ([facility]) [address] [place], [address], 11/08/2023 18:36:14 11/02/19 24 11/03/2023 CBC WITH DIFFE RENTI AL/PL ATELE T monocytes(ab solute) 0.3 x10e3 /uL 0.1-0. 9 Not Available [facility] ([facility]) [address], [place], [address], 11/08/2023 18:36:14 11/02/19 24 11/03/2023 CBC WITH DIFFE RENTI AL/PL ATELE T eos (absolute) 0.0 x10e3 /uL 0.0-0. 4 Not Available [facility] ([facility]) [address] [facility], [place], [address], 11/08/2023 18:36:14 11/02/19 24 11/03/2023 CBC WITH DIFFE RENTI AL/PL ATELE T baso (absolute) 0.0 x10e3 /uL 0.0-0. 2 Not Available [facility] ([facility]) [address] [facility], [place], [address], 11/08/2023 18:36:14 11/02/19 24 11/03/2023 CBC WITH DIFFE RENTI AL/PL ATELE T immature granulocytes 0 % not estab. Not Available [facility] ([facility]) [address] [facility], [place], [address], 11/08/2023 18:36:14 11/02/19 24 11/03/2023 CBC WITH DIFFE RENTI AL/PL ATELE T immature grans (abs) 0.0 x10e3 /uL 0.0-0. 1 Not Available [facility] ([facility]) [address] [facility], [place], [address], 11/08/2023 18:36:14 11/02/19 24 11/03/2023 CBC WITH DIFFE RENTI AL/PL ATELE T NRBC METAL CNC OPERATOR Not Available [facility] ([facility]) [address] [facility], [place], [address], 11/08/2023 18:36:14 11/02/19 24 11/03/2023 CBC WITH DIFFE BAY AL/PAM Tay hematology comments: METAL CNC OPERATOR Not Available [facility] ([facility]) [address] [facility], [place], [address], 11/08/2023 18:36:14 11/02/19 24 11/03/2023 COMP. METAB OLIC PANEL (14) glucose 82 mg/dL 70-99 Not Available [facility] ([facility]) [address] [facility], [place], [address], 11/08/2023 18:36:15 11/02/19 24 11/03/2023 COMP. METAB OLIC PANEL (14) BUN 12 mg/dL 6-24 Not Available [facility] ([facility]) [address] [facility], [place], [address], 11/08/2023 18:36:15 11/02/19 24 11/03/2023 COMP. METAB OLIC PANEL (14) creatinine 0.84 mg/dL 0.57-1 .00 Not Available [facility] ([facility]) [address] [facility], [place], [address], 11/08/2023 18:36:15 11/02/19 24 11/03/2023 COMP. METAB OLIC PANEL (14) eGFR 87 mL/mi n/1.7 3 >59 Not Available [facility] ([facility]) [address] [facility], [place], [address], 11/08/2023 18:36:15 11/02/19 24 11/03/2023 COMP. METAB OLIC PANEL (14) BUN/creatini ne ratio 14 9-23 Not Available [facility] ([facility]) [address] [facility], [place], [address], 11/08/2023 18:36:15 11/02/19 24 11/03/2023 COMP. METAB OLIC PANEL (14) sodium 141 mmol/ L 134-14 4 Not Available [facility] ([facility]) [address] [place], [address], 11/08/2023 18:36:15 11/02/19 24 11/03/2023 COMP. METAB OLIC PANEL (14) potassium 3.9 mmol/ L 3.5-5. 2 Not Available [facility] ([facility]) [address] [facility], [place], [address], 11/08/2023 18:36:15 11/02/19 24 11/03/2023 COMP. METAB OLIC PANEL (14) chloride 105 mmol/ L 96-106 Not Available [facility] ([facility]) [address] [facility], [place], [address], 11/08/2023 18:36:15 11/02/19 24 11/03/2023 COMP. METAB OLIC PANEL (14) carbon dioxide, total 23 mmol/ L 20-29 Not Available [facility] ([facility]) [address] [place], [address], 11/08/2023 18:36:15 11/02/19 24 11/03/2023 COMP. METAB OLIC PANEL (14) calcium 9.4 mg/dL 8.7-10 .2 Not Available [facility] ([facility]) [address] [place], [address], 11/08/2023 18:36:15 11/02/19 24 11/03/2023 COMP. METAB OLIC PANEL (14) protein, total 6.2 g/dL 6.0-8. 5 Not Available [facility] ([facility]) [address] [place], [address], 11/08/2023 18:36:15 11/02/19 24 11/03/2023 COMP. METAB OLIC PANEL (14) albumin 4.1 g/dL 3.9-4. 9 Not Available [facility] ([facility]) [address] [place], [address], 11/08/2023 18:36:15 11/02/19 24 11/03/2023 COMP. METAB OLIC PANEL (14) globulin, total 2.1 g/dL 1.5-4. 5 Not Available [facility] ([facility]) [address] [place], [address], 11/08/2023 18:36:15 11/02/19 24 11/03/2023 COMP. METAB OLIC PANEL (14) bilirubin, total 0.2 mg/dL 0.0-1. 2 Not Available [facility] ([facility]) [address] [facility], [place], [address], 11/08/2023 18:36:15 11/02/19 24 11/03/2023 COMP. METAB OLIC PANEL (14) alkaline phosphatase 104 IU/L 44-121 Not Available [facility] ([facility]) [address] [place], [address], 11/08/2023 18:36:15 11/02/19 24 11/03/2023 COMP. METAB OLIC PANEL (14) AST (SGOT) 38 IU/L 0-40 Not Available [facility] ([facility]) [address] [place], [address], 11/08/2023 18:36:15 11/02/19 24 11/03/2023 COMP. METAB OLIC PANEL (14) ALT (SGPT) 57 IU/L 0-32 above high normal Not Available [facility] ([facility]) [address] [place], [address], 11/08/2023 18:36:15 11/02/19 24 11/05/2023 VITAM IN E vitamin E(alpha tocopherol) 10.1 mg/L 7.0-25 .1 Not Available [facility] ([facility]) [address] [facility], [place], [address], 11/08/2023 18:36:15 11/02/19 24 11/05/2023 VITAM IN [...] in E defic ient. Not Available [facility] ([facility]) [address] [facility], [place], [address], 11/08/2023 18:36:15 11/02/19 24 11/03/2023 FOLAT E (FOLI C ACID) , SERUM folate (folic acid), serum 10.0 NG/mL >3.0 A serum folat e rhonda ntrat ion of less than 3.1 ng/mL is consi dered to repre sent clini abena defic iency . Not Available [facility] ([facility]) [address] [facility], [place], [address], 11/08/2023 18:36:16 11/02/19 24 11/05/2023 VITAM IN [...] sever carley defic ient. This test was anahy lyons and its perfo rmanc e lindsay cteri stics deter mined by [facility]. It has not been clear ed or appro zane by the Food and Drug Admin istra tion. Not Available [facility] ([facility]) [address] [facility], [place], [address], 11/08/2023 18:36:16 11/02/19 24 11/03/2023 VITAM IN [...] um and D. Apple su DC: [facility] Press . 2. Dion garmajo MF, Yolanda dodd [place], Bianca off-F errar i JACINTO, et al. Evalu ation , treat ment, and preve ntion of vitam in D defic iency : an Endoc rine Socie ty clini abena pract ice guide line. JCEM. 2010; 96(7) :1911 -30. Not Available [facility] ([facility]) [address] [facility], [place], [address], 11/08/2023 18:36:17 11/02/19 24 11/05/2023 VITAM IN B1 (THIA MINE) , BLOOD vit. B1, whole blood 100.4 nmol/ L 66.5-2 00.0 Not Available [facility] ([facility]) [address] [facility], [place], [address], 11/08/2023 18:36:17 11/02/19 24 11/08/2023 METHY LMALO TIRSO ACID, SERUM methylmaloni c acid, serum 171 nmol/ L 0-378 Not Available [facility] ([facility]) [address] [facility], [place], [address], 11/08/2023 18:36:18 11/02/19 24 11/04/2023 COPPE R, SERUM OR PLASM A copper, serum or plasma 101 ug/dL 80-158 Detec tion Limit = 5 Not Available [facility] ([facility]) [address] [facility], [place], [address], 11/08/2023 18:36:18 11/02/19 24 11/04/2023 ZINC, PLASM A OR SERUM zinc, plasma or serum 55 ug/dL 44-115 Detec tion Limit = 5 Not Available [facility] ([facility]) [address] [place], [address], 11/08/2023 18:36:19 11/02/19 24 11/03/2023 PREAL BUMIN prealbumin 19 mg/dL 12-34 Not Available [facility] ([facility]) [address] [place], [address], 11/08/2023 18:36:19 11/02/19 24 11/04/2023 SELEN IUM, BLOOD selenium, blood 174 ug/L 100-34 0 Detec tion Limit = 10 Not Available [facility] ([facility]) [address] [facility], [place], [address], 11/08/2023 18:36:20 11/02/19 24 11/02/2023 el scrn mammo w/CAD bilat [facility] [address] [place] [address] Phone: Fax: Name: FILIBERTO JIMENEZ Exam Date: 11/02/19 24 : 1979 Age 43 years Gender : F Access ion: [id number] Physic kallie: NICOLE LEAHYi ty: [place] Fac[place] HSV: Outpat ient Exam: EL [...] Thank you for referr FILIBERTO Ferrari to [facility]. Legall y authen ticate d by LUIS DELAROSA 2023-11-01 11:17: 59 CC'ed Logic: Orderi ng Provid er: MIGUEL STRAUSS Attend ing Provid er: MIGUEL Dai ing Provid er: MIGUEL STRAUSS [address] - Physical Therapy [address] [facility], [place], [address], 11/02/2023 14:05:56 Result Notes None recorded. Problems Name Problem SNOMED Code Status Onset Date Resolution Date Notes Provider Name and Address Organization Details Recorded Time Body mass index 40+ - severely obese 505484355 Active 2022 KATARINA BYRNE NP [address] , [place], [address] , [facility] - [facility] & [place] 14:47:36 Hyperlipidemi a 56495269 Active 2023 KATARINA BYRNE NP [address] , [place], [address] , [place] [facility] & [place] 14:47:33 Morbid obesity 861546419 Active 2023 Popeye Humphrey DNP, WASTEWATER DESIGN ENGINEER, METAL CNC OPERATOR-C [address], [place], [address] , [place] [facility] - [place] & [place] 4 10:21:44 Anxiety 66098686 Active 2023 Popeye Humphrey DNP, WASTEWATER DESIGN ENGINEER, METAL CNC OPERATOR-C [address], [place], [address] , [place] [facility] [place] & [place] 4 10:21:57 Deep venous thrombosis of upper extremity 979173864 Active 2023 MYRTLE Alas [address], [place], [address] , [place] [facility] [place] & [place] 4 11:06:58 Intentional weight loss 004100349 Active 2023 MYRTLE Alas [address], [place], [address] , [place] [facility] [place] & [place] 4 08:32:37 Abdominal pain 47166845 Active 2023 MYRTLE Alas [address], [place], [address] , [place] [facility] [place] [facility] [place] 4 09:49:36 Vitamin D deficiency 17035042 Active 2023 MYRTLE Alas [address], [place], [address] , [place] [facility] [place] & [place] 4 11:37:23 Problem Notes None recorded. Procedures Surgical History Date Name Laterality Status Provider Name and Address Organization Details Recorded Time 02/27 ESOPHAGOGASTRODUODENOSCOPY (SURG) completed Popeye Humphrey DNP, WASTEWATER DESIGN ENGINEER, METAL CNC OPERATOR-C [address], [place], [address] , [place] [facility] [place] & [place] 4 10:20:45 05/04 Cholecystectomy completed Yuki Fragoso [place] [facility] & [place] 4 14:07:52 03/02 Date of Last Pap Smear completed Yuki Richmond [place] - [facility] & [place] 4 14:07:35 05/04 Other completed Yuki Richmond [place] [facility] & [place] 4 14:07:52 05/04 Tonsillectomy/Adenoidectomy completed Heat her Richmond [place] - [facility] & [place] 4 14:07:52 cholecystectomy completed MYRTLE Alas [address], [place], [address] , [place] [facility] & [place] 3 10:31:52 Hysterectomy completed Victorina Gonzalez [place] [facility] & [place] 3 14:16:19 section completed Victorina Gonzalez [place] [facility] & [place] 3 14:16:33 extraction of wisdom tooth completed Victorina Gonzalez [place] - [facility] & [place] 3 14:16:47 Tonsillectomy completed Victorina Gonzalez [place] [facility] & [place] 3 14:16:59 procedure on urinary bladder completed [address], [place], [address] , [facility] - [facility] & [place] 3 10:32:08 procedure on duodenum completed Aneta na Boyd [place] - [facility] & [place] 4 09:28:13 Colonoscopy completed Nida Nix [place] - [facility] & [place] 4 11:35:15 Imaging Results None recorded. Procedure Notes None recorded. Medical Equipment None Reported. Allergies Allergen ID Allergen Name Allergen Category Reaction Reaction Severity Criticality Documentation Date Start Date Code Code System Note Provider Name and Address Organization Details Recorded Time 91194 acetamino phen / oxycodone medicatio n itching Not available Not available 02/19/2023 80955 3 RxNorm Victorina dc, [place] - [facility] & [place] 3 08:09:09 Medications [...] mg capsule 40 mg by oral route. 07/13 completed Not Available Not Available [...] Available vitamin A active Not Available Not Trista ilable Not Available B Complex active Not [...] blood by Pulse oximetry Heart rate Systolic And Diastolic Provider Name and Address Organization Details Last Updated DateTime 4 152.4 cm 43.8 kg/m2 544110. 05 g 97.8 [degF] 97 % 97 % 54 /min 108/59 mm[Hg] [facility] & [place] 4 13:34:48 Date Recorded Body height Body mass index (BMI) Body weight Heart rate Body temperature Systolic And Diastolic Provider Name and Address Organization Details Last Updated DateTime 4 152.4 cm 43.1 kg/m2 292456. 12 g 65 /min 97.8 [degF] 118/82 mm[Hg] [facility] & [place] 4 09:04:56 Date Recorded Body height Body mass index (BMI) Body weight Body temperature Heart rate Oxygen saturation Oxygen saturation in Arterial blood by Pulse oximetry Systolic And Diastolic Provider Name and Address Organization Details Last Updated DateTime 4 152.4 cm 41.9 kg/m2 41745.9 2 g 97.6 [degF] 55 /min 96 % 96 % 119/69 mm[Hg] [facility] & [place] 4 14:42:51 Date Recorded Body height Body mass index (BMI) Body weight Heart rate Body temperature Systolic And Diastolic Provider Name and Address Organization Details Last Updated DateTime 4 152.4 cm 39.3 kg/m2 68250.7 8 g 52 /min 97.9 [degF] 137/89 mm[Hg] [facility] & [place] 4 11:33:12 Date Recorded Body height Heart rate Body temperature Body mass index (BMI) Body weight Systolic And Diastolic Provider Name and Address Organization Details Last Updated DateTime 4 152.4 cm 54 /min 97.8 [degF] 36.4 kg/m2 68520.3 4 g 131/83 mm[Hg] Nida Nix [place] - [facility] & [place] 10:02:00 Social History Question Answer Notes LastModified by Organizat ion Details LastModified Time Tobacco Smoking Status Never Smoker Victorina dc, [place] - [facility] & [place] 02/19/2023 08:09:56 Do [...] Functional Status Question Answer Note LastModified by Organizat ion Details LastModified Time Do you use any illicit or recreational drugs? No Information not available 02/19/2023 What is your level of alcohol consumption? None Information not available 05/28/2023 What is your exercise level? Moderate Information not available 05/28/2023 Mental Status Question Answer Note LastModified by Organization D etails LastModified Time Do you feel stressed (tense, restless, nervous, or anxious, or unable to sleep at night)? [id number] Information not available 05/28/2023 Family History Relationship Description Onset Age of this Age Resolved Age Notes LastModified by Organization Details LastModified Time Father Myocardial infarction pt. added direct ly (02/18) API-13 Not available 02/18/2023 13:30:28 Medical History Condition Response Hyperthyroidism N Deep Vein Thrombosis N Diabetes N Anxiety Disorder Y Obesity Y Bleeding Disorder N Arthritis Y Reflux/GERD N Sleep Apnea N High Cholesterol N Liver Disease N Heart Disease N Pulmonary Embolism N Headaches Y Hypertension N Kidney Disease N Gynecological History Statement/Question Response Menses Monthly N Date of Last Pap Smear 03/02/1998 Date of LMP 04/02/1998 Sexually Active? Y Obstetrics History GPAL:G 0 P 0 0 0 0 Immunizations Vaccine Type Date Status Note Provider Nam e and Address Organization Details Recorded Time influenza, unspecified formulation 03/19/2023 completed Nida dc [place] - [facility] - [place] & [place] 08/12/2023 09:06:19 Past Encounters Encounter ID Performer Location Encounter Start Date Encounter Closed Date Diagnosis/Indication Diagnosis SNOMED-CT Code Diagnosis ICD10 Code Diagnosis Note [id number] MYRTLE Alas [facility] n Bariatric [facility] and Adv Surg [address] [facility] [address] [place] [address] 02/19/2023 07:47:34 02/19/2023 10:43:20 Obesity 505186788 E66.9 Weight loss surgery options discussed at [...] Body mass index 40+ - severely obese 865498708 Z68.42 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 2 Pt reports she overeats portions of foods - reports working to decrease this Predicted inadequate nutrient intake 878588791 Z91.89 Pt reports selective eating and does not eat a variety of sides, though there are some fruits and vegetables included. Pt is willing to work on broadening her palate. [id number] KATARINA BYRNE NP [facility] [address] [place] [address] 05/28/2023 14:00:53 05/28/2023 15:20:53 Body mass index 40+ - severely obese 687457450 Z68.42 Now considerin g surgery.Lo w-carbohyd rate and low-fat dietIncrea se exercise to 30 minutes a day.Increa se fruits and fresh vegetable intake and decrease processed foods and sugarsPCP can considerin g referring to sleep study after weight loss surgery if there are still concerns for sleep apnea Hyperlipidemia 73893405 E78.5 Start statinLow fat/carboh ydrate dietIncrea se exerciseLo se weightPCP may manage Preoperati ve cardiovascular examination 220407854 Z01.810 Good functional capacity with no prior cardiac history. Patient is low risk for cardiovasc ular complicati ons. ECG completed today in office and personally reviewed and interprete d: No further cardiac testing warranted at this point. No need to return to clinic unless cardiac concerns presents or patient wishes to Bilateral lower limb edema 141307287 R60.0 compressio n stockingsw eight lossexerci se [id number] MAIRA LOVE RD, [facility] [address] [facility] [address] [place] [employer] [place] [address] 05/28/2023 14:54:19 07/31/2023 03:57:07 Morbid obesity 461004632 E66.01 BMI 47.8 Weight loss of 3.8 pounds Hyperlipidemia 69881320 E78.5 [id number] KATARINA QUIÑONES MD [facility] [address] [facility] [address] [place], [place] [address] 07/08/2023 07:28:16 07/08/2023 14:11:26 Morbid obesity 736565583 E66.01 Pre-surger y evaluation 316893840 Z01.818 Postoperative pain 33095 9007 G89.18 Hyperlipidemia 53418133 E78.5 Anxiety 67438459 F41.9 [id number] MYRTLE Alasw n Bariatric s and Adv Surg [address] [facility] [address] [place] [address] 07/21/2023 07:51:50 07/21/2023 10:26:22 History of gastrectomy 270572121 Z90.3 s/p JU-sOver all patient is doing well. Advised patient to continue focus on high-prote in diet. Advised minimum 70 g of protein and 7-800 calories daily. We will see patient in follow-up 3 weeks. Patient is to contact our office sooner for any concerns. Deep venou s thrombosis of upper extremity 896819939 I82.629 Patient is to continue Eliquis. We will make referral to Hematology Dr. Ramos for continued management . [id number] MYRTLE Alas [facility] n Bariatric s and Adv Surg [address] [facility] [address] [place] [address] 08/12/2023 08:51:42 08/12/2023 14:06:49 Intentional weight loss 987764780 R63.8 Patient is doing well status post Toño-en-Y gastric bypass. She is to continue focus on high-prote in diet with minimum 70-80 g of protein and 1000 calories encouraged good hydration patient is to see dietitian today for typical one-month postoperat shun dietary support History of gastrectomy 837717214 Z90.3 We discussed diet and the importance [...] to correct any vitamin deficienci es. At [facility] risk of nutritional deficit 292615544 Z91.89 Abdominal pain 36883639 R10.9 Discussed 2-3 week course of probiotic. Patient is to continue focus on high-prote in diet. Advised she be mindful of which foods may trigger abdominal cramping. Encouraged adequate hydration She is to call for any worsening abdominal symptoms. Upper GI may be warranted if patient's symptoms persist or worsen. [id number] MAIRA LOVE RD, LD [facility] [address] [facility] [address] [place] [address] 08/12/2023 09:32:14 08/12/2023 14:12:29 Morbid obesity 425028725 E66.01 BMI 43.1 wt loss 17.6# [id number] Nicole Ordonez PA-C [facility]ematolog y [address] [facility] [place] [address] 08/12/2023 13:11:51 08/12/2023 14:30:51 Deep venous thrombosis 763551985 I82.409 Patient had bariatric surgery July 13, 2023. She developed right upper extremity pain and swelling July 17, 2023 and went to [facility] ED for evaluation . She was [...] recommenda tions. History of bariatric surgical procedure 604486905 Z98.84 Patient had bariatric surgery July 13, 2023. Patient continues to follow-up with her bariatric provider. She states she had labs checked this morning Anticoagulant therapy 18 5719805 Z79.01 Patient had bariatric surgery July 13, 2023. She developed right upper extremity pain and swelling July 17, 2023 and went to [facility] ED for evaluation . She was [...] with further recommenda tions. Screening mammography 24 387670 Z12.31 Patient is due for mammogram. Will schedule. Screening colonoscopy 44 4609745 Z12.11 Patient has never had screening colonoscop y. [facility]. [id number] Nicole Ordonez PA-C [facility]emat[facility] [address] [place] [address] 09/14/2023 14:34:22 09/14/2023 15:23:25 Deep venous thrombosis 194337889 I82.409 Patient had bariatric surgery July 13, 2023. She developed right upper extremity pain and swelling July 17, 2023 and went to [facility] ED for evaluation . She was [...] had screening colonoscop y. Will refer to [facility] for screening colonoscop y. She does not [...] recommenda tions. History of bariatric surgical procedure 179443970 Z98.84 Patient had bariatric surgery July 13, 2023. Patient continues to follow-up with her bariatric provider. She states she had labs checked this morning Anticoagulant therapy 18 0387728 Z79.01 Patient had bariatric surgery July 13, 2023. She developed right upper extremity pain and swelling July 17, 2023 and went to [facility] ED for evaluation . She was [...] with further recommenda tions. Screening mammography 24 015243 Z12.31 Patient is due for mammogram. Will schedule. Screening colonoscopy 44 8680926 Z12.11 Patient has never had screening colonoscop y. [facility]. [id number] MYRTLE Alas [facility] Bariatric s and Adv Surg [address] [facility] [address] [place] [address] 11/02/2023 11:17:46 11/04/2023 16:02:44 Intentional weight loss 154108458 R63.8 Patient is doing well with weight loss status post SadiS. Encouraged patient to continue focus on high-prote in diet. Advised minimum 70 g of protein and 900-1100 calories daily. Encouraged good hydration and exercise. Follow-up 3 months History of gastrectomy 715526264 Z90.3 Advised qid intake 50% protein 1000 [...] to correct any vitamin deficienci es. [facility] health anson risk of nutritional deficit [id number] Z91.89 Vitamin D deficiency [id number] E55.9 Patient is to continue vitamin supplement ation. We are rechecking bariatric vitamins and will contact patient to correct any deficiency Hyperlipidemia [id number] E78.5 Expect improvemen t with weight loss. Patient is not fasting for labs today. We will recheck lipid panel at next office visit or patient may have checked through PCP [id number] MYRTLE Alas [facility] Bariatric s and Adv Surg [address] [facility] [address] [place] [address] 02/05/2024 09:54:47 02/05/2024 11:01:21 Intentional weight loss [id number] R63.8 Patient is doing well with weight [...] Follow-up 3 months Vitamin D deficiency [id number] E55.9 Patient is to continue vitamin supplement ation.We will recheck bariatric panel at next office visit April 2024 History of gastrectomy [id number] Z90.3 Advised qid intake 50% protein 1000 [...] Deep venou s thrombosis of upper extremity [id number] I82.629 Chronic anticoagul ation with Eliquis [id number] LAMIN SHARPE [address] [facility] Bariatric s and Adv Surg [address] [facility] [address] [place] [address] 02/05/2024 10:29:47 02/05/2024 10:58:17 Dietary management surveillance [id number] Z71.3 see recommenda tiemilee for discussion and plan Health Concerns Section Related Observation LastModified by Organization Detai ls LastModified Time None Recorded Concern Status LastModified by Organization Details LastModified Time None Recorded Advance Directives Directive N: Payers Insurance Date Sequence Insurance Name Policy Number Policy Canales Covered Member ID Canalse Member ID Guarantor Name 04/11/2024 1 [id number] [id number] Jessica Jimenez [id number] Jessica Jimenez Notes Date Note Type Note Provider Name and Address Organization Details Recorded Time 08/12/2023 text/html 43-year-old senia hilario presents for evaluation of DVT. Patient had bariatric surgery July 13, 2023. She developed right upper extremity pain and swelling July 17, 2023 and went to [facility] ED for evaluation. She was found [...] up with further recommendations. Nicole Ordonez PA-C [id number], [place], [address], [place] - [facility] - [place] & [place] 08/12/2023 15:43:25 08/12/2023 text/html Patient presents for 1mth Post-Op Check s/p 07/13/23 Tony.Patient presents the office today for routine follow-up [...] post op - Patient was seen at [facility] ED on 07/17/2023 for right arm [...] life after Weight loss Surgery. MYRTLE Alas [address], [place], [address], [facility] [place] [facility] [place] 08/12/2023 11:05:41 08/12/2023 text/html [...] f/up as scheduled or PRN. . MAIRA HENDERSON [address], LD [address], [place], [address], [place] - [facility] & [place] 08/12/2023 09:42:32 09/14/2023 text/html 43-year-old senia hilario presents for evaluation of DVT. Patient had bariatric surgery July 13, 2023. She developed right upper extremity pain and swelling July 17, 2023 and went to [facility] ED for evaluation. She was found [...] follow-up with further recommendations. Nicole Ordonez PA-C [address], [place], [address], [place] [facility] & [place] 09/14/2023 15:35:50 11/02/2023 text/html Patient presents for 3mth Post-Op Check s/p 07/13/23 JU-cecile.Patient presents the office today for routine follow-up [...] post op - Patient was seen at [facility] ED on 07/17/2023 for right arm [...] life after Weight loss Surgery. MYRTLE Alas [address], [place], [address], [facility] - [place] & [place] 11/02/2023 11:49:26 02/05/2024 text/html Patient presents for Post-Op Check s/p 07/13/23 JU-cecile.Patient presents the office today for routine follow-up [...] post op - Patient was seen at [facility] ED on 07/17/2023 for right arm [...] life after Weight loss Surgery. MYRTLE Alas [address], [place], [address], [facility] - [place] & [place] 02/05/2024 10:33:53 02/05/2024 text/html [...] work) Tracking meal intakes: was tracking with [employer] phone mikal and has not been lately Est. [...] hectic work schedule LAMIN SHARPE, RD [address], [place], [address], [facility] - [place] & [place] 02/05/2024 10:58:01 OBGyn Episode No OBEpisode recorded.
--- OUTSIDE RECORDS SUMMARY | 2024-11-11 07:34 | XMS_ITS | Data Portability ---
Author Organization [facility] Address [address] [place] [address] Assessment Encounter Date Assessment Date Assessment LastModified by Organization Details LastModified Time 02/27/2017 02/27/2017 Patient refused Flu vaccine Anxiety worsening Increase Citalopram to 40 mg daily Rx Buspar 15 mg 1 po BID prn anxiety Neck pain C-5 C-6 MRI c-spine w/contrast Pain in left breast US left breast [email or web address] Not available 02/27/2017 14:54:10 12/30/2017 12/30/2017 UA (-) Mid -back pain Radiating into lateral RLE L5 distrib(R) BMI 43.4 Depo Medrol 120 mg IM Rx Fluoxetine 40 mg 1 po qd Flexeril 10 mg ngallenstein Not available 12/30/2017 17:02:26 Plan of Treatment Reminders Order Date Submit Date Provider Last Modified By Organization Details Last Modified Time Details Appointments None recorde d. Lab urinaly felicia dipstic k [address], [address] [place], [address], 10:59:43 urinaly felicia dipstic k [address], [address] [place], [address], 16:44:29 urinaly felicia dipstic k [address] [facility], [address] [place], [address], 8 11:48:58 urinaly sis, dipstic k 2017 018 [facility], [address] [place], [address], 8 08:12:07 Referral None recorde d. Procedures None recorde d. Surgeries None recorde d. Imaging US, breast 2016 017 [facility] ([facility]), [address] [place], [address], 8 20:17:51 MRI, cervica l spine, w/ contras t 2016 017 [facility] ([facility]), [address] [place], [address], 8 20:17:50 Medication Orders Depo-Me drol 80 mg/mL suspens ion for injecti on [address] [facility] [address] [facility] [id number], [address] [place], [address], 8 11:04:37 Depo-Me drol 40 mg/mL suspens ion for injecti on [address] [facility] [id number], [address] [place], [address], 8 11:04:32 cyclobe nzaprin e 10 mg tablet 2017 018 [facility] [id number], [address] [place], [address], 8 17:00:30 fluoxet ine 40 mg capsule 2017 018 [email or web address] [facility] [id number], [address] [place], [address], 8 16:59:32 ketorol ac 60 mg/2 mL intramu scular solutio n 2016 017 [email or web address] Not available 7 09:19:51 citalop brenda 40 mg tablet 2016 017 sneus [facility] [id number], [address] [place], [address], 8 15:44:37 buspiro ne 15 mg tablet 2016 017 [email or web address] [facility] [id number], [address] [place], [address], 8 11:05:18 Patient TargetsNo targets recorded. Patient Instructions Encounter Date Encounter Id Patient Instructions Last Modified By Organization Details Last Modified Time 02/27/2017 [id number] breast pain: car e instructions Not available 02/27/2017 15:53:36 neck pain: care instructions Not available 02/27/2017 15:53:35 anxiety disorder : care instructions sneus Not available 02/27/2017 15:05:00 learning about anxiety disorders sneus Not available 02/27/2017 15:05:00 12/30/2017 [id number] neck pain: care instructions sneus Not available 01/01/2018 08:12:07 back care and preventing injuries: care instructions sneus Not available 01/01/2018 08:12:07 getting back to normal after low back pain: care instructions sneus Not available 01/01/2018 08:12:07 learning about relief for back pain sneus Not available 01/01/2018 08:12:07 depression treatment: care instructions sneus Not available 01/01/2018 08:12:07 02/10/2018 [id number] When You Want to Lose Weight: Care Instructions [email or web address] Not available 02/10/2018 11:48:58 A healthy lifestyle: care instructions [email or web address] Not available 02/10/2018 11:48:58 depression treatment: care instructions Not available 02/10/2018 15:44:51 vision screen: Snellen* [email or web address] Not available 02/10/2018 11:48:58 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 [email or web address] Not available 02/10/2018 15:44:50 02/02/2019 [id number] body mass index: care instructions [email or web address] Not available 02/02/2019 11:40:11 learning about healthy weight [email or web address] Not available 02/02/2019 11:40:11 vision screen: Snellen* Not available 02/02/2019 11:40:11 pt. in for dot, cdl, needs some wt. loss but otherwise doing well, OK for cdl, ready for duty. [email or web address] Not available 02/02/2019 11:41:06 07/27/2020 [id number] vision screen: Snellen* [email or web address] Not available 07/30/2020 10:59:43 pt for cdl exam, seeing pmd for depression, needs wt. loss, otherwise no medical problems, passes exam, ready for duty for one year. Not available 07/28/2020 13:58:56 Reason for Referral None Reported. Results Created Date Observation Date Name Description Value Unit Range Abnormal Flag Note LastModifiedBy Organization Detail LastModifiedTime 07/28/19 21 07/27/2020 jamia staton n: Oni en* Rt Eye Corrected 20/20 Not Available [facility] [address] [place], [address], 07/27/2020 12:42:03 07/28/19 21 07/27/2020 jamia staton n: Oni en* Lt Eye Corrected 20/20 Not Available [facility] [address] [place], [address], 07/27/2020 12:42:03 07/28/19 21 07/27/2020 urina lysis , dipst ick Leukocytes Negati ve Not Available [address] [place], [address], 07/27/2020 12:42:02 07/28/19 21 07/27/2020 urina lysis , dipst ick Nitrite negati ve Not Available [address] [place], [address], 07/27/2020 12:42:02 07/28/19 21 07/27/2020 urina lysis , dipst ick Urobilinogen .2 Not Available [address] [place], [address], 07/27/2020 12:42:02 07/28/19 21 07/27/2020 urina lysis , dipst ick Protein Negati ve Not Available [address] [place], [address], 07/27/2020 12:42:02 07/28/19 21 07/27/2020 urina lysis , dipst ick pH 6.0 Not Available [address] [place], [address], 07/27/2020 12:42:02 07/28/19 21 07/27/2020 urina lysis , dipst ick Blood Negati ve Not Available [address] [place], [address], 07/27/2020 12:42:02 07/28/19 21 07/27/2020 urina lysis , dipst ick Specific [place] 1.025 Not Available [address] [place], [address], 07/27/2020 12:42:02 07/28/19 21 07/27/2020 urina lysis , dipst ick Ketone Negati ve Not Available [address] [place], [address], 07/27/2020 12:42:02 07/28/19 21 07/27/2020 urina lysis , dipst ick Bilirubin Negati ve Not Available [address] [place], [address], 07/27/2020 12:42:02 07/28/19 21 07/27/2020 urina lysis , dipst ick Glucose Negati ve Not Available [address] [place], [address], 07/27/2020 12:42:02 07/28/19 21 07/27/2020 urina lysis , dipst ick Appearance Clear Not Available [address] [place], [address], 07/27/2020 12:42:02 07/28/19 21 07/27/2020 urina lysis , dipst ick Color Pale Yellow Not Available [address] [place], [address], 07/27/2020 12:42:02 12/31/19 18 12/30/2017 urina lysis , dipst ick Leukocytes Negati ve Not Available [address] [place], [address], 12/30/2017 15:15:16 12/31/19 18 12/30/2017 urina lysis , dipst ick Nitrite negati ve Not Available [address] [place], [address], 12/30/2017 15:15:16 12/31/19 18 12/30/2017 urina lysis , dipst ick Urobilinogen .2 Not Available [address] [place], [address], 12/30/2017 15:15:16 12/31/19 18 12/30/2017 urina lysis , dipst ick Protein Negati ve Not Available [address] [place], [address], 12/30/2017 15:15:16 12/31/19 18 12/30/2017 urina lysis , dipst ick pH 6.5 Not Available [address] [place], [address], 12/30/2017 15:15:16 12/31/19 18 12/30/2017 urina lysis , dipst ick Blood Negati ve Not Available [address] [place], [address], 12/30/2017 15:15:16 12/31/19 18 12/30/2017 urina lysis , dipst ick Specific [place] 1.015 Not Available [address] [place], [address], 12/30/2017 15:15:16 12/31/19 18 12/30/2017 urina lysis , dipst ick Ketone Negati ve Not Available [address] [place], [address], 12/30/2017 15:15:16 12/31/19 18 12/30/2017 urina lysis , dipst ick Bilirubin Negati ve Not Available [address] [place], [address], 12/30/2017 15:15:16 12/31/19 18 12/30/2017 urina lysis , dipst ick Glucose Negati ve Not Available [address] [place], [address], 12/30/2017 15:15:16 12/31/19 18 12/30/2017 urina lysis , dipst ick Appearance Clear Not Available [address] [place], [address], 12/30/2017 15:15:16 12/31/19 18 12/30/2017 urina lysis , dipst ick Color Pale Yellow Not Available [address] [place], [address], 12/30/2017 15:15:16 02/11/20 18 02/10/2018 urina lysis , dipst ick Leukocytes Negati ve Not Available [address] [place], [address], 02/10/2018 11:26:27 02/11/20 18 02/10/2018 urina lysis , dipst ick Nitrite negati ve Not Available [address] [place], [address], 02/10/2018 11:26:27 02/11/20 18 02/10/2018 urina lysis , dipst ick Urobilinogen .2 Not Available [address] [place], [address], 02/10/2018 11:26:27 02/11/20 18 02/10/2018 urina lysis , dipst ick Protein Negati ve Not Available [address] [place], [address], 02/10/2018 11:26:27 02/11/20 18 02/10/2018 urina lysis , dipst ick pH 7.0 Not Available [address] [place], [address], 02/10/2018 11:26:27 02/11/20 18 02/10/2018 urina lysis , dipst ick Blood Negati ve Not Available [address] [place], [address], 02/10/2018 11:26:27 02/11/2002/10/2018 urina lysis , dipst ick Specific [place] 1.020 Not Available [address] [place], [address], 02/10/2018 11:26:27 02/11/20 18 02/10/2018 urina lysis , dipst ick Ketone Negati ve Not Available [address] [place], [address], 02/10/2018 11:26:27 02/11/20 18 02/10/2018 urina lysis , dipst ick Bilirubin Negati ve Not Available [address] [place], [address], 02/10/2018 11:26:27 02/11/20 18 02/10/2018 urina lysis , dipst ick Glucose Negati ve Not Available [address] [place], [address], 02/10/2018 11:26:27 02/11/20 18 02/10/2018 urina lysis , dipst ick Appearance Clear Not Available [address] [place], [address], 02/10/2018 11:26:27 02/11/2002/10/2018 urina lysis , dipst ick Color Yellow Not Available [facility] [address] [place], [address], 02/10/2018 11:26:27 02/11/20 18 02/10/2018 visio n scree n: Oni en* Rt Eye Corrected Not Available [address] [place], [address], 02/10/2018 11:26:25 02/11/20 18 02/10/2018 visio n scree n: Oni en* Lt Eye Corrected Not Available [address] [place], [address], 02/10/2018 11:26:25 02/03/20 19 02/02/2019 urina lysis , dipst ick Leukocytes Negati ve Not Available [address] [place], [address], 02/02/2019 09:51:16 02/03/20 19 02/02/2019 urina lysis , dipst ick Nitrite negati ve Not Available [address] [place], [address], 02/02/2019 09:51:16 02/03/20 19 02/02/2019 urina lysis , dipst ick Urobilinogen .2 Not Available [address] [place], [address], 02/02/2019 09:51:16 02/03/20 19 02/02/2019 urina lysis , dipst ick Protein Negati ve Not Available [address] [place], [address], 02/02/2019 09:51:16 02/03/2002/02/2019 urina lysis , dipst ick pH 6.0 Not Available [address] [place], [address], 02/02/2019 09:51:16 02/03/2002/02/2019 urina lysis , dipst ick Blood Negati ve Not Available [address] [place], [address], 02/02/2019 09:51:16 02/03/2002/02/2019 urina lysis , dipst ick Specific [place] 1.025 Not Available [address] [place], [address], 02/02/2019 09:51:16 02/03/2002/02/2019 urina lysis , dipst ick Ketone Negati ve Not Available [address] [place], [address], 02/02/2019 09:51:16 02/03/2002/02/2019 urina lysis , dipst ick Bilirubin Negati ve Not Available [address] [place], [address], 02/02/2019 09:51:16 02/03/2002/02/2019 urina lysis , dipst ick Glucose Negati ve Not Available [address] [place], [address], 02/02/2019 09:51:16 02/03/2002/02/2019 urina lysis , dipst ick Appearance Clear Not Available [facility] [address] [place], [address], 02/02/2019 09:51:16 02/03/20 19 02/02/2019 urina lysis , dipst ick Color Yellow Not Available [facility] [address] [place], [address], 02/02/2019 09:51:16 02/03/20 19 02/02/2019 visio n scree n: Oni en* Rt Eye Corrected 20/40 Not Available [facility] [address] [place], [address], 02/02/2019 09:51:14 02/03/20 19 02/02/2019 visio n scree n: Oni en* Lt Eye Corrected 20/32 Not Available [facility] [address] [place], [place] [address] [place], [address], 02/02/2019 09:51:14 03/13/20 17 03/13/2017 MAMMO , diagn ostic , digit al, bilat eral No observ ation record ed. [address], [place], [address], 03/16/2017 10:53:28 Result Notes None recorded. Problems Name Problem SNOMED Code Status Onset Date Resolution Date Notes Provider Name and Address Organization Details Recorded Time Renewal of prescriptio n Completed 201612/30/2017 Deborah Ann in [facility], [place] - [facility] 8 16:53:13 Physical examination 7824366 Active 2017 Noble Alvarado MD [address], [place], [address], [place] - [facility] 8 15:43:06 Anxiety disorder 609610340 Active 2016 Ro Ureña [place], [place] - [facility] 7 16:25:58 Fibromyalgi a 839189856 Active 2016 SINGH Calvert [facility] 7 16:26:13 Recurrent major depression 56660225 Active 2016 SINGH Calvert [facility] 7 16:26:34 Irritable bowel syndrome 32238098 Active 2016 SINGH Calvert [facility] 7 16:26:40 Problem Notes None recorded. Procedures Surgical History Date Name Laterality Status Provider Name and Address Organization Details Recorded Time Tonsillectomy completed Ro WNITERS [facility] 05/13/2016 16:27:51 Cholecystectomy, laparoscopic completed Ro WINTERS [facility] 05/13/2016 16:28:14 Caesarean Section completed Ro Ureña [facility] 05/13/2016 16:28:40 Diagnostic Laparoscopy completed Crystal Gaby [facility] 02/27/2017 14:04:48 Hysterectomy, Total laparoscopic completed Crystal Gaby [facility] 02/27/2017 14:05:03 Imaging Results None recorded. Procedure Notes None recorded. Medical Equipment None Reported. Allergies Allergen ID Allergen Name Allergen Category Reaction Reaction Severity Criticality Documentation Date Start Date Code Code System Note Provider Name and Address Organization Details Recorded Time 96682 acetamino phen / oxycodone medicatio n rash severe Not available 05/13/2016 42296 3 RxNorm SINGH Calvert [facility] 7 16:40:35 Medications Name Sig Start Date Stop Date Status Note LastModified by Organization Details LastModified Time fluoxetin e 40 mg capsule Take 1 capsule every day by oral route. active Not Available Not Available No t Available cyclobenz aprine 10 mg tablet Take 1 po tid as needed. 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 Completi on: 06/22/19 12 Not Available Not Available Not Available furosemid e 40 mg tablet take 1 tablet (40 mg) by oral route once daily for 30 days 12/08 completed furosemi de 40 mg oral tablet;R ecorded Status: Recorded on: 08/22/19 09 6:49PM;D iscontin ued Status: Disconti nued on: 12/09/19 09 4:12PM;U ser: [email or web address]; Indicati on: Edema - (16.7823 00) Not Available Not Available Not Available Inderal LA 80 mg capsule,e xtended release take 1 capsule (80 mg) by oral route once daily for 30 days 12/08 completed Inderal LA 80 mg oral capsule, extended release 24 hr;Recor ded Status: Recorded on: 04/12/20 08 9:10AM;D iscontin ued Status: Disconti nued on: 12/09/19 09 4:12PM;U ser: neuss;Es t. Completi on: 05/12/19 09 Not Available Not Available Not Available Protonix 40 mg tablet,de layed release take 1 tablet (40 mg) by oral route once daily for 30 days 12/08 completed Protonix 40 mg oral tablet,d elayed release (DR/EC); Recorded Status: Recorded on: 08/24/19 09 3:28PM;D iscontin ued Status: Disconti nued on: 12/09/19 09 4:12PM;U ser: neuss;Es t. Completi on: 02/20/20 09 Not Available Not Available Not Available Depo-Medr ol 40 mg/mL suspensio n for injection Take 40 mg by injectio n route. 02/10 completed Not Available Not Available Not Available citalopra m 40 mg tablet take 1 tablet (40 mg) by oral route once daily 12/30 completed Not Available Not Available Not Available Topamax 25 mg tablet 50 mg bid po 04/05 completed Topamax 25 mg oral tablet;R ecorded Status: Recorded on: 02/05/20 08 10:02PM; Disconti nued Status: Disconti nued on: 04/05/20 08 10:45AM; User: [email or web address] Not Available Not Available Not Available oxybutyni n chloride ER 10 mg tablet,ex tended release 24 hr take 1 tablet (10 mg) by oral route once daily 07/09 completed oxybutyn in chloride 10 mg oral tablet extended release 24hr;Rec orded Status: Recorded on: 08/10/19 10 11:36AM; Disconti nued Status: Disconti nued on: 07/10/19 11 6:00PM;U ser: luis miguel; Indicati on: Bladder Hyperact ivity - (10.5965 10) Not Available Not Available Not Available ibuprofen 800 mg tablet take 1 tablet by oral route 3 times a day for 14 days 04/27 completed ibuprofe n 800 mg oral tablet;R ecorded Status: Recorded on: 01/01/20 13 3:20PM;D iscontin ued Status: Disconti nued on: 04/27/20 13 11:59AM; User: Iris t. Completi on: 01/15/20 13;Indic ation: Pain - (04.0688 ) Not Available Not Available Not Available Vicodin 5 mg-500 mg tablet take 1 tablet by oral route every 6 hours as needed for pain 07/09 completed Vicodin 5-500 mg oral tablet;R ecorded Status: Recorded on: 10/18/19 10 9:48PM;D iscontin ued Status: Disconti nued on: 07/10/19 11 6:00PM;U ser: [email or web address];In dication : Pain - (16.0648 ) Not Available Not Available Not Available Pyridium 200 mg tablet take 1 tablet (200mg) by oral route 3 times per day after meals 04/09 completed Pyridium 200 mg oral tablet;R ecorded Status: Recorded on: 03/06/20 09 12:36PM; Disconti nued Status: Disconti nued on: 04/09/20 09 9:46AM;U ser: seamusk;E st. Completi on: 03/06/20 09;Indic ation: Urinary Tract Irritati on - (7076) Not Available Not Available Not Available Elmiron 100 mg capsule take 1 capsule (100 mg) by oral route 3 times per day with water, 1 hour before or 2 hours after a meal 07/09 completed Elmiron 100 mg oral capsule; Recorded Status: Recorded on: 08/16/19 10 3:55PM;D iscontin ued Status: Disconti nued on: 07/10/19 11 6:00PM;U ser: [email or web address]; Indicati on: Intersti tial Cystitis - () Not Available Not Available Not Available clindamyc in HCl 150 mg capsule take 1 capsule (150 mg) by oral route 2 times per day for 10 days 03/15 completed clindamy hermelindo HCl 150 mg oral capsule; Recorded Status: Recorded on: 12/05/19 10 3:21PM;D iscontin ued Status: Disconti nued on: 03/15/20 10 8:55AM;U ser: neussDione Donaldson on: 12/11/19 10 Not Available Not Available Not Available Diflucan 150 mg tablet take 1 tablet (150 mg) by oral route for three days 01/08 completed Diflucan 150 mg oral tablet;R ecorded Status: Recorded on: 01/09/20 10 12:23PM; User: Cassy Donaldson on: 01/15/20 10;Print ed: 01/09/20 10 Not Available Not Available Not Available Nexium 40 mg capsule,d elayed release Take 1 capsule twice a day by oral route. 2016 active Not Available Not Available Not Avai lable hydroxyzi ne HCl 50 mg tablet take 1 tablet by oral route daily 01/16 completed hydroxyz ine HCl 50 mg oral tablet;R ecorded Status: Recorded on: 01/09/20 10 12:49PM; Disconti nued Status: Disconti nued on: 01/17/20 10 11:50AM; User: belkis Donaldson on: 04/08/20 10;Indic ation: Anxiety - (3000 ) Not Available Not Available Not Available Detrol LA 4 mg capsule,e xtended release 1 PO QD 12/08 completed Detrol LA 4 mg oral capsule, extended release 24hr;Rec orded Status: Recorded on: 02/05/20 08 10:04PM; Disconti nued Status: Disconti nued on: 12/09/19 09 4:12PM;U ser: system Not Available Not Available Not Available acyclovir 400 mg tablet take 1 tablet by oral route 5 times a day for 6 days 09/15 completed acyclovi r 400 mg oral tablet;R ecorded Status: Recorded on: 08/30/19 14 5:47PM;D iscontin ued Status: Disconti nued on: 09/16/19 14 8:57AM;U ser: mikki;Silvia Bluei on: 09/05/19 14 Not Available Not Available Not Available omeprazol e 40 mg capsule,d elayed release TAKE ONE CAPSULE BY MOUTH DAILY FOR STOMACH 12/30 completed Not Available Not Available Not Available Depo-Medr ol 80 mg/mL suspensio n for injection Take 80 mg by injectio n route. 02/10 completed Not Available Not Available Not Available Imitrex 50 mg tablet take 1 tablet (50 mg) by oral route once with fluids as early as possible after the onset of a migraine attack;m ay repeat after 2 hours if headache returns, not to exceed 200mg in 24hrs 10/17 completed Imitrex 50 mg oral tablet;R ecorded Status: Recorded on: 08/10/19 10 11:36AM; Disconti nued Status: Disconti nued on: 10/18/19 10 4:44PM;U ser: luis miguel; Indicati on: Migraine - (3469 ) Not Available Not Available Not Available citalopra m 20 mg tablet Take 1 tablet every day by oral route. 03/02 completed Not Available Not Available Not Available lorazepam 0.5 mg tablet 1/2 q pm prn---se hola anxiety 07/09 completed lorazepa m 0.5 mg oral tablet;R ecorded Status: Recorded on: 01/17/20 10 11:50AM; Disconti nued Status: Disconti nued on: 07/10/19 11 6:00PM;U ser: [email or web address]; Est. Completi on: 03/17/20 10;Indic ation: Anxiety - () Not Available Not Available Not Available Silvadene 1 % topical cream apply a 1/16 inch (1.5 mm) thick layer to entire burn area by topical route 2 times per day for 7 days 09/15 completed Silvaden e 1 % topical cream;Pr escribe Status: Prescrib ed on: 08/30/19 14 12:14PM; Disconti nued Status: Disconti nued on: 09/16/19 14 8:57AM;U ser: gored;Es t. Completi on: 09/13/19 14;Pharm acyVerif ied: 08/30/19 14 12:14PM Not Available Not Available Not Available gentamici n 0.3 % eye drops instill 2 drops into affected eye(s) by ophthalm ic route every 4 hours for 7 days 08/14 completed gentamic in 0.3 % ophthalm ic drops;Pr escribe Status: Prescrib ed on: 08/08/19 16 5:11PM;U ser: gored;Es t. Completi on: 08/15/19 16;Pharm acyVerif ied: 08/08/19 16 5:11PM Not Available Not Available Not Available dicyclomi ne 20 mg tablet 05/13 completed Not Available Not Available Not Available Valium 5 mg tablet take 1 tablet by oral route every 6 hours as needed for 5 days 06/08 completed Valium 5 mg oral tablet;R ecorded Status: Recorded on: 07/11/19 12 4:33PM;D iscontin ued Status: Disconti nued on: 06/08/19 13 7:04PM;U ser: neuss;Es t. Completi on: 07/16/19 12;Indic ation: Muscle Spasm - (13.7288 50) Not Available Not Available Not Available baclofen 10 mg tablet 07/09 completed baclofen 10 mg oral tablet;R ecorded Status: Recorded on: 10/16/19 10 2:38PM;D iscontin ued Status: Disconti nued on: 07/10/19 11 6:00PM;U ser: [email or web address] nk Not Available Not Available Not Available Phenergan 25 mg rectal supposito ry insert 1 supposit ory (25 mg) by rectal route every 6 hours as needed for 30 days 12/08 completed Phenerga n 25 mg rectal supposit ory;Jorge rded Status: Recorded on: 04/12/20 08 9:10AM;D iscontin ued Status: Disconti nued on: 12/09/19 09 4:12PM;U ser: neuss;Es t. Completi on: 05/12/19 09;Indic ation: Nausea - (7870 ) Not Available Not Available Not Available paroxetin e 20 mg tablet take 1 tablet (20 mg) by oral route once daily 01/08 completed paroxeti ne HCl 20 mg oral tablet;c omment: has tried before;R ecorded Status: Recorded on: 01/09/20 10 12:32PM; Disconti nued Status: Disconti nued on: 01/09/20 10 12:46PM; User: belkis EstPhi Completi on: 04/08/20 10;Indic ation: Depressi on - (3110 ) Not Available Not Available Not Available Cipro 500 mg tablet take 1 tablet (500 mg) by oral route 2 times per day for 10 days 06/08 completed Cipro 500 mg oral tablet;R ecorded Status: Recorded on: 03/17/20 12 5:04PM;D iscontin ued Status: Disconti nued on: 06/08/19 13 7:04PM;U ser: gored;Es t. Completi on: 03/27/20 12;Print ed: 03/17/20 12 Not Available Not Available Not Available Effexor XR 150 mg capsule,e xtended release take 1 capsule (150 mg) by oral route once daily with food for 30 days 12/08 completed Effexor XR 150 mg oral capsule, extended release 24hr;Rec orded Status: Recorded on: 06/23/19 09 2:39PM;D iscontin ued Status: Disconti nued on: 12/09/19 09 4:12PM;U ser: [email or web address]; Est. Completi on: 09/22/19 09;Indic ation: Depressi on - ( 00) Not Available Not Available Not Available Bupap 50 mg-650 mg tablet take 1 tablet by oral route TID-qid prn 12/31 completed Bupap 50-650 mg oral tablet;R ecorded Status: Recorded on: 08/04/19 12 5:53PM;D iscontin ued Status: Disconti nued on: 01/01/20 13 2:57PM;U ser: neuss;Es t. Completi on: 12/02/19 12;Indic ation: Migraine - (346.90) ;Printed : 03/17/20 12 Not Available Not Available Not Available Ortho-Nov um 35 (28) 1 mg-35 mcg tablet take 1 tablet by oral route QD for 21 days, then begin new pack 10/03 completed Ortho-No vum 35 (28) 1-35 mg-mcg oral tablet;R ecorded Status: Recorded on: 07/09/19 11 4:49PM;D iscontin ued Status: Disconti nued on: 10/04/19 11 3:46PM;U ser: mariton ;Est. Completi on: 10/01/19 11;Print ed: 07/09/19 11 Not Available Not Available Not Available nystatin- triamcino lone 100,000 unit/g-0. 1 % topical cream apply to the affected area(s) by topical route 2 times per day in the morning and evening for 14 days 07/09 completed nystatin -triamci nolone 100,000- 0.1 unit/g-% topical cream;Re corded Status: Recorded on: 01/09/20 10 12:25PM; Disconti nued Status: Disconti nued on: 07/10/19 11 6:00PM;U ser: gored;Es t. Completi on: 02/06/20 10 Not Available Not Available Not Available Lupron Depot 3.75 mg intramusc ular syringe kit inject 3.75 mg by intramus cular route once a month and bring to office for injectio n 07/08 completed Lupron Depot 3.75 mg intramus cular syringe kit;Jorge rded Status: Recorded on: 07/01/19 11 2:12PM;D iscontin ued Status: Disconti nued on: 07/09/19 11 4:48PM;U ser: [email or web address]; Printed: 07/01/19 11 Not Available Not Available Not Available diclofena c sodium 75 mg tablet,de layed release take 1 tablet (75 mg) by oral route 2 times per day for 30 days 03/06 completed diclofen ac sodium 75 mg oral tablet,d elayed release (/PHOEBE); Recorded Status: Recorded on: 12/09/19 09 4:46PM;D iscontin ued Status: Disconti nued on: 03/06/20 09 11:15AM; User: Jonathan Donaldson on: 03/08/20 09;Indic ation: Osteoart hritis - (13.7159 00);Prin ellen: 12/09/19 Not Available Not Available Not Available gabapenti n 100 mg capsule take 1 capsule by oral route 2 times a day for 30 days 06/12 completed gabapent in 100 mg oral capsule; Recorded Status: Recorded on: 03/15/20 10 10:54AM; Disconti nued Status: Disconti nued on: 06/12/19 12 10:17AM; User: Chung Monreal on: 07/14/19 11;Print ed: 03/15/20 10 Not Available Not Available Not Available Imitrex 100 mg tablet take 1 tablet at onset of headache , repeat in 2 hours, not to exceed 2 doses. 12/08 completed Imitrex 100 mg oral tablet;R ecorded Status: Recorded on: 04/12/20 08 9:10AM;D iscontin ued Status: Disconti nued on: 12/09/19 09 4:12PM;U ser: [email or web address] Completjessica on: 10/10/19 09;Indic ation: Migraine - (3469 ) Not Available Not Available Not Available methylpre dnisolone 4 mg tablets in a dose pack 02/27 completed Not Available Not Available Not Available ketorolac 60 mg/2 mL intramusc ular solution one time only 03/02 completed Not Available Not Available Not Available Zoloft 100 mg tablet take 1 tablet (100 mg) by oral route once daily for 30 days 06/12 completed Zoloft 100 mg oral tablet;R ecorded Status: Recorded on: 04/27/20 13 11:59AM; Disconti nued Status: Disconti nued on: 06/12/19 15 6:29PM;U ser: neuss;Es t. Completi on: 10/25/19 14;Indic ation: Major Depressi ve Disorder - (7447 ) Not Available Not Available Not Available Imitrex 25 mg tablet take 1 tablet (25 mg) by oral route x 1 dose with fluids as early as possible after the onset of a migraine attack; if headache returns, the dose may be repeated after 2 hours, not to exceed a total daily dose of 200mg 04/12 completed Imitrex 25 mg oral tablet;R ecorded Status: Recorded on: 04/11/20 08 6:09PM;D iscontin ued Status: Disconti nued on: 04/12/20 08 9:10AM;U ser: bishopk; Mariuszti on: Migraine - (346) Not Available Not Available Not Available Fioricet 50 mg-325 mg-40 mg tablet take 1 tablet by oral route every 4 hours as needed not to exceed 6 tablets per 24hrs for 10 days 06/12 completed Fioricet 50-325-4 0 mg oral tablet;R ecorded Status: Recorded on: 09/14/19 10 10:41AM; Disconti nued Status: Disconti nued on: 06/12/19 12 10:17AM; User: bon Est. Completi on: 09/24/19 10;Indic ation: Tension- Type Headache - (1914 ) Not Available Not Available Not Available fluoxetin e 20 mg capsule TAKE ONE CAPSULE BY MOUTH EVERY MORNING 06/20 completed Not Available Not Available Not Available Augmentin 500 mg-125 mg tablet take 1 tablet by oral route every 12 hours for 10 days 08/17 completed Augmenti n 500-125 mg oral tablet;P rescribe Status: Prescrib ed on: 08/08/19 16 5:10PM;U ser: gored;Es t. Completi on: 08/18/19 16;Pharm acyVerif ied: 08/08/19 16 5:10PM Not Available Not Available Not Available buspirone 15 mg tablet Take 1 tablet twice a day by oral route as needed. 02/10 completed Not Available Not Available Not Available Lexapro 10 mg tablet 01/08 completed Lexapro 10 mg oral tablet;R ecorded Status: Recorded on: 10/16/19 10 2:38PM;D iscontin ued Status: Disconti nued on: 01/09/20 10 12:32PM; User: [email or web address] galo;Indic ation: Generali zed Anxiety Disorder - (3000 ) Not Available Not Available Not Available Skelaxin 800 mg tablet take 1 tablet (800 mg) by oral route 3 times per day as needed for 10 days 08/09 completed Skelaxin 800 mg oral tablet;R ecorded Status: Recorded on: 05/31/19 10 12:00PM; Disconti nued Status: Disconti nued on: 08/10/19 10 11:36AM; User: bon Est. Completi on: 06/10/19 10;Indic ation: Muscle Spasm - (13.7288 50);Prin ellen: 05/31/19 10 Not Available Not Available Not Available cyclobenz aprine 5 mg tablet take 1 tablet (5 mg) by oral route 3 times per day for 14 days 04/27 completed cycloben zaprine 5 mg oral tablet;R ecorded Status: Recorded on: 01/01/20 13 3:20PM;D iscontin ued Status: Disconti nued on: 04/27/20 13 11:59AM; User: desire;Es t. Completi on: 01/15/20 13;Indic ation: Muscle Spasm - (13.7288 50) Not Available Not Available Not Available Zovirax 5 % topical cream apply to the affected area(s) by topical route 5 times per day for 10 days 06/12 completed Zovirax 5 % topical cream;Pr libbybe Status: Prescrib ed on: 08/30/19 14 12:14PM; Disconti nued Status: Disconti nued on: 06/12/19 15 6:29PM;U ser: gored;Es t. Completi on: 09/19/19 14;Pharm acyVerif ied: 08/30/19 14 12:14PM Not Available Not Available Not Available Wellbutri n XL 150 mg 24 hr tablet, extended release take 1 tablet (150 mg) by oral route once daily 06/08 completed Wellbutr in XL 150 mg oral tablet extended release 24 hr;Recor ded Status: Recorded on: 08/04/19 12 5:53PM;D iscontin ued Status: Disconti nued on: 06/08/19 13 7:04PM;U ser: neuss;Es t. Completi on: 09/03/19 12;Print ed: 03/17/20 12 Not Available Not Available Not Available Mucinex D 60 mg-600 mg tablet,ex tended release take 1 tablet by oral route every 12 hours as needed for 10 days 12/31 completed Mucinex D 60-600 mg oral tablet extended release 12 hr;Recor ded Status: Recorded on: 03/17/20 12 5:04PM;D iscontin ued Status: Disconti nued on: 01/01/20 13 2:57PM;U ser: gored;Es t. Completi on: 03/27/20 12;Print ed: 03/17/20 12 Not Available Not Available Not Available Vicodin 1 qhs for pain and sleep 08/09 completed vicodin 5mg;Jorge rded Status: Recorded on: 05/18/19 10 2:24PM;D iscontin ued Status: Disconti nued on: 08/10/19 10 11:36AM; User: markesbe ryh;Est. Completi on: 05/28/19 10;Indic ation: - (-5) Not Available Not Available Not Available prednison e increasi ng decreasi ng dosage 01/26 completed predison e 5 mg.;Jorge rded Status: Recorded on: 11/25/19 12 1:40PM;D iscontin ued Status: Disconti nued on: 01/27/20 12 4:45PM;U ser: [email or web address]; Est. Completi on: 12/01/19 12;Indic ation: derm - (-5) Not Available Not Available Not Available Indocin 1 tid with food 08/09 completed indocin 50 mg;Recor ded Status: Recorded on: 05/31/19 10 12:00PM; Disconti nued Status: Disconti nued on: 08/10/19 10 11:36AM; User: [email or web address]; Est. Completi on: 06/30/19 10;Indic ation: - (-5);Wendi nted: 05/31/19 10 Not Available Not Available Not Available Treximet 85 mg-500 mg tablet 07/09 completed Treximet 85-500 mg oral tablet;R ecorded Status: Recorded on: 10/16/19 10 2:38PM;D iscontin ued Status: Disconti nued on: 07/10/19 11 6:00PM;U ser: [email or web address] nk Not Available Not Available Not Available Savella 50 mg tablet take 1 tablet (50 mg) by oral route 2 times per day for 30 days 06/12 completed Savella 50 mg oral tablet;R ecorded Status: Recorded on: 09/14/19 10 10:03AM; Disconti nued Status: Disconti nued on: 06/12/19 12 10:17AM; User: phong;In dication : Tomas warrenia - (13.7291 02) Not Available Not Available Not Available Viberzi 100 mg tablet take 1 tablet (100 mg) by oral route 2 times per day 05/13 completed Viberzi 100 mg oral tablet;R ecorded Status: Recorded on: 10/24/19 16 2:17PM;U ser: neuss;Es t. Completi on: 02/21/20 16;Indic ation: Diarrhea Predomin ant Irritabl e Bowel Syndrome - () Not Available Not Available Not Available Vitals Date Recorded Body height Body mass index (BMI) Body weight Heart rate Oxygen saturation Oxygen saturation in Arterial blood by Pulse oximetry Respiratory rate Systolic And Diastolic Provider Name and Address Organization Details Last Updated DateTime 1 152.4 cm 47.3 kg/m2 843025. 35 g 77 /min 97 % 97 % 18 /min 122/78 mm[Hg] [facility] 1 13:25:30 Date Recorded Body height Body mass index (BMI) Body weight Heart rate Respiratory rate Systolic And Diastolic Provider Name and Address Organization Details Last Updated DateTime 8 152.4 cm 43.4 kg/m2 952708. 51 g 88 /min 18 /min 130/90 mm[Hg] [facility] 8 14:51:49 Date Recorded Body height Body mass index (BMI) Body weight Heart rate Respiratory rate Systolic And Diastolic Provider Name and Address Organization Details Last Updated DateTime 9 152.4 cm 44.7 kg/m2 984526. 65 g 60 /min 18 /min 122/88 mm[Hg] [facility] 9 09:50:23 Date Recorded Body height Body mass index (BMI) Body weight Body temperature Heart rate Oxygen saturation Oxygen saturation in Arterial blood by Pulse oximetry Respiratory rate Systolic And Diastolic Provider Name and Address Organization Details Last Updated DateTime 8 152.4 cm 43.6 kg/m2 459241. 1 g 98.1 [degF] 64 /min 98 % 98 % 18 /min 127/80 mm[Hg] [facility] 8 11:03:55 Date Recorded Body height Body mass index (BMI) Body weight Body temperature Heart rate Oxygen saturation Oxygen saturation in Arterial blood by Pulse oximetry Respiratory rate Systolic And Diastolic Provider Name and Address Organization Details Last Updated DateTime 7 152.4 cm 44.7 kg/m2 043887. 65 g 98.2 [degF] 66 /min 98 % 98 % 18 /min 146/82 mm[Hg] Maliha Griffin [place] - [facility] 7 14:00:17 Social History Question Answer Notes LastModified by Organizat ion Details LastModified Time Tobacco Smoking Status Never Smoker [place], [place] - [facility] 05/13/2016 16:27:25 Able To Swim? Yes Information not available 02/27/2017 Do You Wear A Helmet When Biking? No Information not available 02/27/2017 Are You Blind Or Do You Have Difficulty Seeing? No Information not available 02/27/2017 What Is Your Level Of Caffeine Consumption? Occasional [email or web address] Information not available 07/27/2020 Are You Deaf Or Do You Have Serious Difficulty Hearing? No Information not available 02/27/2017 What Type Of Diet Are You Following? REGULAR Information not available 02/27/2017 Are There Any Guns Present In Your Home? No [email or web address] Information not available 07/27/2020 Hard Of Hearing Or Deaf In One Or Both Ears? No Information not available 02/27/2017 Legally Blind In One Or Both Eyes? No Information no t available 02/27/2017 Live Alone Or With Others? With Others Information not available 02/27/2017 What Was The Date Of Your Most Recent Tobacco Screening? 07/27/2020 Information not available 07/27/2020 What Is Your Relationship Status? Information not available 02/27/2017 Seat Belts Used Routinely Yes Information not available 02/27/2017 Are You Sexually Active? Yes Information not available 02/27/2017 Smoke Alarm In Home Yes Information not available 02/27/2017 Are You Passively Exposed To Smoke? No [email or web address] Information no t available 07/27/2020 General Stress Level Low [email or web address] Information not available 07/27/2020 Has Tobacco Cessation Counseling Been Provided? No Information not available 02/27/2017 Do You Have Difficulty Walking Or Climbing Stairs? No Information not available 02/27/2017 Sex: Unknown Functional Status Question Answer Note LastModified by Organizat ion Details LastModified Time What is your level of alcohol consumption? None [email or web address] Information not available 07/27/2020 Do you or have you ever used smokeless tobacco? Never used smokeless tobacco [email or web address] Information not available 07/27/2020 Are you currently employed? Yes Information not available 02/27/2017 Are you able to walk? YESWOREST [email or web address] Information not available 07/27/2020 Do you have difficulty doing errands alone? No Information not available 02/27/2017 Are you able to care for yourself? 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 No Information not available 02/27/2017 Do you or have you ever used e-cigarettes or vape? Never used electronic cigarettes [email or web address] Information not available 07/27/2020 Mental Status Question Answer Note LastModified by Organization D etails LastModified Time Do you have difficulty concentrating, remembering or making decisions? No Information no t available 02/27/2017 Family History Relationship Description Onset Age of this Age Resolved Age Notes LastModified by Organization Details LastModified Time Father No current problems or disability Not available 02/27 14:01:05 Father Heart disease Not available 2016 14:03:10 Father Neoplasm of lung Not available 2016 14:03:24 Father Myocardial infarction Not available 02/27 14:03:35 Mother No current problems or disability Not available 02/27 14:01:05 Maternal Grandfather Hypertensive disorder Not available 2016 14:01:52 Maternal Grandfather Heart disease Not available 2016 14:03:10 Paternal Grandfather Neoplasm of urinary bladder Not available 2016 14:02:55 Maternal Grandmother Neoplasm of lung Not available 2016 14:03:25 Maternal Aunt Malignant tumor of breast Not available 2016 14:03:44 Medical History Condition Response Anxiety Disorder Y Fibromyalgia Y Irritable Bowel Syndrome Y Gynecological HistoryNo gynecological history recorded. Obstetrics History GPAL:G 0 P 0 0 0 0 Immunizations Vaccine Type Date Status Note Provider Name and Address Organization Details Recorded Time Influenza, split virus, quadrivalent, preservative 02/28/20 17 cancelled patient objection Not Available [facility] 05/21/2019 03:54:42 Past Encounters Encounter ID Performer Location Encounter Start Date Encounter Closed Date Diagnosis/Indication Diagnosis SNOMED-CT Code Diagnosis ICD10 Code Diagnosis Note [id number] [facility] [address] [place] [address] 06/08/2007 00:00:00 [id number] [facility] [address] [place] [address] 06/18/2007 00:00:00 [id number] [facility] [address] [place] [address] 06/21/2007 00:00:00 [id number] [facility] [address] [place] [address] 04/05/2008 00:00:00 [id number] [facility] [address] [place] [address] 04/11/2008 00:00:00 [id number] [facility] [address] [place] [address] 08/21/2008 00:00:00 [id number] [facility] [address] [place] [address] 12/08/2008 00:00:00 [id number] [facility] [address] [place] [address] 03/06/2009 00:00:00 [id number] [facility] [address] [place] [address] 04/09/2009 00:00:00 [id number] [facility] [address] [place] [address] 05/18/2009 00:00:00 [id number] [facility] [address] [place] [address] 05/18/2009 00:00:00 [id number] [facility] [address] [place] [address] 05/24/2009 00:00:00 [id number] [facility] [address] [place] [place] [address] 05/31/2009 00:00:00 [id number] [facility] [address] [place] [address] 08/09/2009 00:00:00 [id number] [facility] [address] [place] [address] [address] 5 08/15/2009 00:00:00 [id number] [facility] [address] [place] [place] [address] [address] 5 09/13/2009 00:00:00 [id number] [facility] [address] [place] [address] 10/03/2009 00:00:00 [id number] [facility] [address] [place] [address] 10/15/2009 00:00:00 [id number] [facility] [address] [place] [address] [address] 10/17/2009 00:00:00 [id number] [facility] [address] [place] [address] 01/27/2012 00:00:00 [id number] [facility] [address] [place] [address] 03/17/2012 00:00:00 [id number] [facility] [address] [place] [address] 12/17/2010 00:00:00 [id number] [facility] [address] [place] [address] 06/08/2012 00:00:00 [id number] [facility] [address] [place] [address] 12/18/2010 00:00:00 [id number] [facility] [address] [place] [address] 10/21/2012 00:00:00 [id number] [facility] [address] [place] [address] 06/12/2011 00:00:00 [id number] [facility] [address] [place] [address] 01/30/2006 00:00:00 [id number] [facility] [address] [place] [address] 5 11/02/2009 00:00:00 [id number] [facility] [address] [place] [address] 07/27/2006 00:00:00 [id number] [facility] [address] [place] [address] 11/30/2009 00:00:00 [id number] [facility] [address] [place] [address] 5 09/11/2006 00:00:00 [id number] [facility] [address] [place] [address] 07/11/2011 00:00:00 [id number] [facility] [address] [place] [address] 09/18/2006 00:00:00 [id number] [facility] [address] [place] [address] 01/08/2010 00:00:00 [id number] [facility] [address] [place] [address] 10/02/2006 00:00:00 [id number] [facility] [address] [place] [address] 08/04/2011 00:00:00 [id number] [facility] [address] [place] [address] 03/15/2010 00:00:00 [id number] [facility] [address] [place] [address] 12/08/2006 00:00:00 [id number] [facility] [address] [place] [address] 10/06/2011 00:00:00 [id number] [facility] [address] [place] [address] 07/01/2010 00:00:00 [id number] [facility] [address] [place] [address] [address] 12/25/2006 00:00:00 [id number] [facility] [address] [place] [address] [address] 09/15/2013 00:00:00 [id number] [facility] [address] [place] [address] 06/12/2014 00:00:00 [id number] [facility] [address] [place] [address] 03/03/2007 00:00:00 [id number] [facility] [address] [place] [place] [address] 5 07/09/2010 00:00:00 [id number] [facility] [address] [address] 5 04/29/2007 00:00:00 [id number] [facility] [address] [place] [address] [address] 08/08/2015 00:00:00 [id number] [facility] [address] [address] 10/03/2010 00:00:00 [id number] [facility] [address] [place] [address] [address] 5 12/17/2010 00:00:00 [id number] [facility] [address] [place] [address] 09/05/2015 00:00:00 [id number] [facility] [address] [place] [address] 5 12/31/2012 00:00:00 [id number] [facility] [address] [place] [address] [address] 10/15/2015 00:00:00 [id number] [facility] [address] [place] [address] 5 10/24/2015 00:00:00 [id number] [facility] [address] [place] [address] [address] 5 04/25/2013 00:00:00 [id number] [facility] [address] [place] [address] 06/22/2013 00:00:00 [id number] [facility] [address] [place] [address] 08/29/2013 00:00:00 [id number] [facility] [address] [place] [address] 5 11/13/2011 00:00:00 [id number] [facility] [address] [place] [address] 09/15/2013 00:00:00 [id number] [facility] ation Services [address] [place] [address] 11/25/2011 00:00:00 [id number] [facility] [address] [place] [address] 01/27/2012 00:00:00 [id number] Rui Puckett MD [address] [place] [place] [address] 05/13/2016 16:25:45 05/14/2016 08:03:25 Anxiety disorder [id number] F41.9 Epigastric pain 12576975 R10.13 Hematochezia 059920512 K 62.5 [id number] Greg Cronin MD [address] [place] [place] [address] 06/20/2016 14:53:54 06/23/2016 09:01:42 Neck pain 83484495 M54.2 Recurrent major depression 70727357 F33.9 [id number] Greg Cronin MD [address] [place] [address] 02/27/2017 13:16:16 02/27/2017 16:52:53 Anxiety disorder 977774385 F41.9 Vaccine de clined by patient [id number] 02 Z28.20 Neck pain 24426368 M54.2 Pain of breast 87663762 N64.4 [id number] Greg Cronin MD [address] [place] [address] 12/30/2017 14:20:29 12/30/2017 16:29:08 Urgent desire to urinate 28005197 R39.15 Low back pain 245571815 M54.5 Neck pain 65551626 M54.2 Recurrent major depression 62035047 F33.9 [id number] Noble Alvarado MD [address] [place] [address] 02/10/2018 10:51:07 02/10/2018 11:28:46 Body mass index 40+ - severely obese 883338380 Z68.41 Obesity 757598038 E66.9 [employer] lic ense medical examination 365916049 Z02.4 Fibromyalgia 939855500 M 79.7 Recurrent major depression 15780875 F33.9 Physical examination 588 0005 Z04.9 [id number] Noble Alvarado MD [address] [place] [address] 02/02/2019 09:02:22 02/02/2019 11:01:46 Physical examination 3726790 Z04.9 Body mass index 40+ - severely obese 039088899 Z68.41 Fibromyalgia 851126412 M 79.7 [id number] Noble Alvarado MD [address] [place] [address] 07/27/2020 12:56:41 07/27/2020 14:24:09 Web [employer] license medical examination [id number] Z02.4 Physical examination 588 0005 Z04.9 Health Concerns Section Related Observation LastModified by Organization Detai ls LastModified Time None Recorded Concern Status LastModified by Organization Details LastModified Time None Recorded Advance Directives Directive None Recorded Payers Insurance Date Sequence Insurance Name Policy Number Policy Canales Covered Member ID Canales Member ID Guarantor Name 06/09/2016 1 [id number] Jimenez [id number] Jessica Jimenez 07/24/2020 1 [employer] (POS) Raffy Jimenez [id number] Jessica Jimenez 08/13/2020 [facility] [employer] Jessica Jimenez [id number] Jessica Jimenez 12/30/2017 1 [employer] (PPO) [id number] Jessica Jimenez [id number] Jessica Jimenez Notes Date Note Type Note Provider Name and Address Organization Details Recorded Time 02/27/2017 text/html Wants to discuss medication change, has been having neck pain and has pain in her left breast Greg [facility] 03/16/2017 10:59:12 12/30/2017 text/html Back PainReporte d bypatient.Location:c ervical; lumbar;pain radiating to the buttocks;pain radiating to the legs Quality:sharp Severity:worsening;m oderate (5-7);interference with sleep;interference with work Duration:acute Onset/Timing:does have flare intermittently that improves with muscle relaxer but not this time Context:prior back problems; used medications for back pain Alleviating Factors:rest; relieved by changing position; muscle relaxers Aggravating Factors:movement/pos itioning; twisting; extending back Associated Symptoms:no fever; no incontinence; no shortness of breath; no unintentional weight loss; no night sweats; no bowel/bladder symptoms; no recent increase in stress; slower gait and stiffnessLower Urinary Tract Symptoms (LUTS)Reported bypatient.Location:b ilateral Quality:dull Severity:bothersome Onset/Timing:< 1 week Duration:4-10 times a day; sudden Context:denies excessive fluid intake; denies excessive caffeine intake; no dyspareunia; denies new medication treatment Associated Symptoms:abdominal pain;urgency [facility] 12/30/2017 17:03:36 02/10/2018 text/html Pt in the office today [facility] Noble Alvarado MD [address], [place], [address], [place] [facility] 02/10/2018 15:45:34 02/02/2019 text/html 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
--- OUTSIDE RECORDS SUMMARY | 2024-11-11 07:34 | XMS_ITS | Clinical Summary ---
Author Organization [facility] Address [address] [place] [address] Phone Care Team Providers Care Factory Focus Technician Name Role Phone Greg Cronin MD Primary Care Provider [phone] Allergies Active Allergy Reactions Criticality Noted Date Comments Oxycodone-Acetaminophen Anaphylaxis High 10/16/2015 Medications indomethacin (INDOCIN) 25 mg capsule Take 25 mg by mouth every 12 hours. As needed Active busPIRone (BUSPAR) 15 mg Oral Tablet 15 mg 3 times daily. As needed 03/09/2022 Active FLUoxetine (PROZAC) 40 mg Oral Capsule daily. 03/09/2022 Active HYDROcodone-acet aminophen (NORCO) 7.5-325 mg Oral Tablet Take 1 Tablet by mouth every 6 hours as needed for Acute Pain (R52) or Major Surgery/Tra arlen (G89.18) for up to 30 doses. 30 Tablet 06/06/2022 Active Active Problems Problem Noted Date Diagnosed Date Lateral epicondylitis of right elbow 05/08/2022 Overview (05/08/2022): Added automatically from request for surgery [id number] Partial tear of common extensor tendon of elbow 05/08/2022 Overview (05/08/2022): Added automatically from request for surgery [id number] Medial epicondylitis of right elbow 05/08/2022 Overview (05/08/2022): Added automatically from request for surgery [id number] Right elbow pain 05/08/2022 Overview (05/08/2022): Added automatically from request for surgery [id number] Surgical History Surgery Date Site/Laterality Comments CHOLECYSTECTOMY, LAPAROSCOPIC HYSTERECTOMY BLADDER SUSPENSION TONSILLECTOMY SECTION COLLATERAL LIGAMENT REPAIR 06/06/2022 Arm/Elbow/Righ t RIGHT ELBOW LATERAL COMMON EXTENSOR TENDON REPAIR WITH REPAIR OF LATERAL ULNAR COLLATERAL LIGAMENT AND SPLINT APPLICATION; Surgeon: Souleymane Rasheed DO; Location: [facility]; Service: Orthopedics Medical devices from this surgery are in the Medical Devices section. Medical History Medical History Date Comments Bladder disorder Migraines Anxiety Family History Medical History Relation Name Comments Heart Disease Father High Blood Pressure Father No Known Problems Mother Relation Name Status Comments Father Mother Alive Social History Tobacco Use Types Packs/Day Years Used Date Smoking Tobacco: Never Smokeless Tobacco: Never Alcohol Use Standard Drinks/Week Comments Yes 0 (1 standard drink = 0.6 oz pur e alcohol) rare Comments No Sex and Gender Information Value Date Recorded Sex Assigned at Not on file Legal Sex Female 7:50 PM EDT Gender Identity Not on file Sexual Orientation Not on file Obstetrics History Last Filed Vital Signs Vital Sign Reading Time Taken Comments Blood Pressure 142/98 06/06/2022 9:30 AM EST Pulse 75 06/06/2022 9:30 AM EST Temperature 36.8 C (98.2 F) 06/06/2022 9:30 AM EST Respiratory Rate 15 06/06/2022 9:30 AM EST Oxygen Saturation 100% 06/06/2022 9:30 AM EST Inhaled Oxygen Concentration - - Weight 112.6 kg (248 lb 4 oz) 06/06/2022 6:50 AM EST Height 152.4 cm (5') 06/04/2022 1:50 PM EST Body Mass Index 48.48 06/04/2022 1:50 PM EST Plan of Treatment Health Maintenance Due Date Last Done Comments Annual Wellness Exam 1981 DTaP/TDaP/Td (1 - Tdap) 1997 Hepatitis B Vaccine (1 of 3 - 19+ 3-dose series) 1997 Cervical Cancer Screening 1999 Pap Smear 1999 HPV/Pap Cotest 2008 Breast Cancer Screening 03/12/2019 03/12/2017 Cologuard 2023 Colon Cancer Screening 2023 Colonoscopy 2023 FIT 2023 Sigmoidoscopy 2023 Virtual Colonography 2023 COVID-19 Vaccine (3 - 2023-2 5 season) 2024 02/08/2021, 01/18/2021 Influenza Vaccine (#1) 2025 01/18/2021 Meningococcal B Vaccine Aged Out No l onger eligible based on patient's age to complete this topic Pneumococcal Vaccine 0-49 Aged Out No longer eligible based on patient's age to complete this topic Medical Devices Implanted Type Area Hunter Guide Device Identifier Shelf Expiration Date Model / Serial / Lot Tyler Sut Gii Quickanc+ 2.4x8.8mm Pe #2 Orthocord Cp-2 Ndl - [id number] Implanted:Qty: 1 on 06/06/2022 by Souleymane Rasheed DO at [facility] Right: Elbow [employer]J:ETH[employer]:MITEK PRDT 08/01/2024 [id number] / / [id number] Procedures Procedure Name Priority Date/Time Associated Diagnosis Comments MM MAMMO DIGITAL EL DIAGN BILAT Routine 03/12/2017 9:42 AM EST Painful breasts Encounter for screening mammogram for malignant neoplasm of breast from Last 3 Months or Most Recently Relevant to Health Maintenance Results * MM MAMMO DIGITAL EL DIAGN BILAT (03/12/2017 9:42 AM EST) Anatomical Region Laterality Modality Breast Bilateral Mammography 03/13/2017 10:3 7 AM EST Impressions 03/13/2017 1:48 PM EST : Negative ([id number]) No mammographic evidence of malignancy. ~ As imaging fails to explain the patient's history of generalized left breast pain, management is recommended as based on clinical grounds. ~ RECOMMENDATION: Routine screening mammogram at age 38. Manage on clinical grounds. Images fail to explain clinical findings. ~ DISCLAIMER * Any patient with a palpable abnormality, unexplained by breast imaging, should be managed on clinical basis by the attending physician. * Breast imaging has a false negative rate of 15%. * The patient was notified by mail of the results of this examination. *The patient's information was entered into a reminder system with a target due date for the next mammogram. Narrative 03/13/2017 1:48 PM EST Procedure:MM MAMMO DIGITAL EL DIAGN BILAT ~ Reason for exam: clinical finding. Indicated problem(s): left breast pain. ~ MM MAMMO DIGITAL EL DIAGN BILAT Bilateral CC and MLO view(s) were taken. Technologist: Azucena Diaz, RT DIAGNOSTIC BILATERAL MAMMOGRAPHY WITH CAD ANALYSIS AND DIGITAL BREAST TOMOSYNTHESIS 03-12-17: ~ COMPARISON: None, baseline mammograms. ~ HISTORY: A 36-year-old female presents with history of diffuse left breast pain, including intermittent pain and shooting pain. She denies any palpable breast lump. ~ FINDINGS: The breast tissue is heterogeneously dense, which may lower the sensitivity of mammography. No dominant mass, architectural distortion, or suspicious microcalcification identified in the breasts bilaterally. ~ Greg Cronin MD [facility] MAMMOGRAPHY ORDERABLES Final Result from Last 3 Months or Most Recently Relevant to Health Maintenance Insurance PPO PPO Care Teams Factory Focus Technician Relationship Specialty Start Date End Date Greg Cronin MD PCP - General 09/14/09
[2024-11-11 07:45] VITALS: BMI 33.7
[2024-11-11 08:06] VITALS: BP 140/80; PULSE 51; RESP 16; TEMP 36.1; O2SAT 99
[2024-11-11 08:26] LABS: Anion Gap 10.1 mEq/L (5-15); Blood Urea Nitrogen 21 mg/dl (7-17); Calcium 9.5 mg/dl (8.4-10.2); Carbon Dioxide 33 mmol/L (22.0-30.0); Chloride 97 mmol/L (98-107); Creatinine Clearance Estimated 109 mL/min (50-200); Creatinine,Serum 0.80 mg/dl (0.52-1.04); Estimated Glomerular Filt Rate 77 ml/min (>60); GFR (African American) 93 ML/MIN (>60); Glucose 78 mg/dl (74-100); Potassium 4.1 mmoL/L (3.5-5.1); Sodium 136 mmol/L (136-145)
--- NOTE | 2024-11-11 08:30 | CT_ITS ---
APPROVED REPORT [employer]: CLINICAL INDICATION Chest Pain TECHNIQUE Image Acquisition: A 128 slice MDCT scanner ([employer] NovaPlannera View) was used for data acquisition. A noncontrast coronary calcium scan was performed. A CT attenuation threshold of 130 Hounsfield units (HU) was used for the detection of calcium in contiguous voxels of 1 sq mm in area to be counted as individual lesions. Bolus tracking in the ascending aorta with a threshold of 180 HU was performed. Immediately afterwards, ECG synchronized cardiac CT was then performed from the cardiac base to apex using retrospective gating with ECG tube current modulation. A total of 85 mL of Isovue 370 mg/mL contrast medium was administered at 5 mL/sec followed by a saline flush using a biphasic injection protocol. A tube voltage of 120 KVp was used. The patient received the following medications prior to the cardiac CT. 0.4 mg of sublingual nitroglycerin The average heart rate at the time of acquisition was 58 bpm and regular. Image Reconstruction Transaxial images were reconstructed at 0.67 mm slide thickness. Data was reviewed interactively on an advanced workstation capable of 2 and 3-dimensional displays in all conventional reconstruction formats, including multiplanar reformations, maximum intensity projections, curved multiplanar reformations, and volume rendered reconstructions. When applicable, selected routine images describing the relevant coronary anatomy and pathology were saved and sent to PACS. Complications None Technical Quality Overall image quality was good. Coronary artery opacification was adequate. Total DLP (Dose-Length Product) is 1679.2 mGy-cm. The reported value represents the total of one or more individual components during the CT acquisition of this date and at this time, and as such, the same value may appear in more than one CT report depending on the interpreting/reporting physicians. COMPARISON None FINDINGS CT Coronary Calcium Scoring LMA (Left Main Artery) = 0 LAD (Left Anterior Descending) = 0 LCX (Left Coronary Circumflex) = 0 RCA (Right Coronary Artery) = 0 Total Calcium Score = 0 using the AJ-130 method. The interpretation of the calcium heart score is based on the following continuum*: 0 = no calcified plaque detected (risk of coronary artery disease is very low ??? less than 5%) 1-10 = calcium detected in extremely minimal levels (risk of coronary diseases is still low ??? less than 10%) 11-100 = mild levels of plaque detected with certainty (mild or minimal narrowing of heart arteries is likely) 101-400 = definite,at least moderate levels of plaque detected (relatively high risk of a heart attack within 3-5 years) >401-999 = extensive levels of plaque detected (high risk of heart attack, high levels of vascular disease are present, high likelihood of at least one significant coronary narrowing) *The calcium heart score quantifies the burden of coronary calcification/plaque in the coronary arteries. The calcium heart score is not able to evaluate the presence or burden of non-calcified (i.e. soft) plaque. There is no identifiable calcification in the aortic valve, mitral annulus or mitral valve, pericardium, or myocardium. Coronary CT Angiography The coronary arterial system is right dominant. Quantitative Stenosis Grading: Left Main (LM): The left main originates normally from the left sinus of Valsalva. The LM bifurcates into the left anterior descending artery and left circumflex artery. The LM is patent with no evidence of atherosclerosis. Left Anterior Descending (LAD) and Diagonal Branches: The LAD gives off 3 diagonal branch(es). The LAD and its branches are patent with no evidence of atherosclerosis. There is no evidence of LAD-myocardial bridge. Left Circumflex (LCX) and Obtuse Marginals (OM): The LCX gives off 1 Obtuse Marginal (OM) branch(es). The LCX and its branches are patent with no evidence of atherosclerosis. Right Coronary Artery (RCA): The RCA originates normally from the right sinus of Valsalva. The RCA gives off a posterior descending artery (PDA) and posterolateral (PL) branches. The RCA and its branches are patent with no evidence of atherosclerosis. Non-Coronary Cardiac Findings: Analysis of the left ventricular (LV) structure and function was performed after 3-D reconstruction of the LV from axial images, with user-corrected automatic contouring for assessment of LV volumes and user-defined reconstruction from oblique planes for measurement of 3-D cardiac structure and function. -The left ventricle systolic function is normal. -There is no left atrial appendage filling defect. Two right pulmonary veins and two left pulmonary veins drain normally into the left atrium. -No pericardial thickening or calcification. -Central and branch pulmonary arteries in the [id number] are unremarkable. -Thoracic aorta within the visualized thoracic aortic-branches in the [id number] is unremarkable. Extracardiac Structures No significant extra-cardiac findings. Note, however, that this study is focused on the cardiac findings. IMPRESSION -Absence of coronary calcification with an Agatston score = 0 using the AJ-130 method. -No evidence of significant flow-limiting atherosclerosis of the coronary arteries. -CAD-RADS 0. Management recommendations per ACC/AHA guidelines*, as clinically appropriate. -Incidental finding of mildly dilated main pulmonary artery. *Recommendations: CAD RADS 0: Reassurance. Consider non-atherosclerotic causes of chest pain. CAD RADS 1: Consider non-atherosclerotic causes of chest pain. Consider preventive therapy and risk factor modification. CAD RADS 2: Consider non-atherosclerotic causes of chest pain. Consider preventive therapy and risk factor modification, particularly for patients with nonobstructive plaque in multiple segments. CAD RADS 3: Consider further functional testing. Consider symptom-guided anti-ischemic and preventive pharmacotherapy as well as risk factor modification per published guideline statements. CAD RADS 4A: Consider further functional testing or invasive coronary angiography with revascularization per published guideline statements. Consider symptom-guided anti-ischemic and preventive pharmacotherapy as well as risk factor modification per published guideline statements. CAD RADS 4B: Invasive coronary angiography recommended with revascularization per published guideline statements. Consider symptom-guided anti-ischemic and preventive pharmacotherapy as well as risk factor modification per published guideline statements. CAD RADS 5: Consider invasive angiography and/or viability assessment with revascularization per published guideline statements. Consider symptom-guided anti-ischemic and preventive pharmacotherapy as well as risk factor modification per published guideline statements. CRITICAL RESULT None COMMUNICATION Per this written report The coronary and cardiac findings of this CCTA were reviewed, reported, and signed by Todd Bazan MD (Director Emergency Services) Conclusion Electronically signed by : Kirsten Bazan MD 11/11/2024 17:41:01
[2024-11-11 08:46] VITALS: BP 121/61; PULSE 53; RESP 16; O2SAT 99
[2024-11-11] MEDS: NITROGLYCERIN 0.4MG SL TABLET SL (08:46)
[2024-11-11 08:49] VITALS: BP 132/69; PULSE 53; RESP 16; O2SAT 98
[2024-11-11 08:52] VITALS: BP 112/63; PULSE 54; RESP 16; O2SAT 98
[2024-11-11] MEDS: SODIUM CHLORIDE 0.9% 10ML SYR (RAD ONLY) 10 ML IV (09:01)
[2024-11-11] MEDS: IOPAMIDOL-370 (76%);100ML BOTTLE 85 ML IV (09:01)
[2024-11-11] MEDS: 0.9 % SODIUM CHLORIDE 50 ML VIAL IV (09:01)
== END 2024-11-11 09:15 | disposition home or self-care (01) ==
PROVIDERS: Internal Medicine; PCP Family Medicine; Visit Provider Family Medicine
DX: R07.9 Chest pain, unspecified (principal); Z82.49 Family history of ischemic heart disease and other diseases of the circulatory system
CPT/HCPCS: 75574; 80048; Q9967